=== PATIENT | male | born 1955 | race Caucasian/White ===

== ENCOUNTER 2017-08-24 10:36 | Emergency (ER) | payer OTHER ==
[~2017-08-24] VITALS: Ht 172.7 cm; Wt 90.0 kg
[2017-08-24] MEDS ORDERED: ASPIRIN CHEWABL81 MG PO (10:53)
[2017-08-24] MEDS ORDERED: ALLERGY NA50 MCG/ACT NAB (10:54)
[2017-08-24] MEDS ORDERED: PRILOSEC20 MG/CAP PO (10:55)
[2017-08-24] MEDS ORDERED: CLOPIDOGREL75 MG PO (10:55)
[2017-08-24] MEDS ORDERED: CLINDAMYCIN HC150 MG PO (10:56)
[2017-08-24] MEDS ORDERED: SENNA S1 TAB PO (10:57)
[2017-08-24] MEDS ORDERED: TAMSULOSIN HCL0.4 MG PO (10:58)
[2017-08-24] MEDS ORDERED: ASMANEX HF100 MCG/AC IN (11:01)
[2017-08-24] MEDS ORDERED: DULERA1 AE1 IN (11:03)
[2017-08-24] MEDS ORDERED: [UNRECOGNIZED DRUG - OTHER] IN (11:03)
[2017-08-24] MEDS ORDERED: MIRTAZAPINE15 M1 PO (11:04)
[2017-08-24] MEDS ORDERED: ATORVASTATIN CA80 MG PO (11:04)
[2017-08-24] MEDS ORDERED: ZOLOFT50 MG PO (11:05)
[2017-08-24 11:07] LABS: HEMATOCRIT 39.5 % (39.0-50.0); HEMOGLOBIN 12.9 g/dl (14.0-18.0); IMMATURE GRANULOCYTES 0.4 % (0.0-1.0); MEAN CELL VOLUME 86.6 fL CALC (80.0-100.0); MEAN CORPUSCULAR HGB 28.3 pG CALC (26.0-32.0); MEAN CORPUSCULAR HGB CONC 32.7 g/L CALC (32.0-36.0); NEUT# 4.47 thou/uL (1.82-7.42); RED BLOOD COUNT 4.56 mill/uL (4.70-6.10); RED CELL DISTRI WIDTH 16.1 % (11.5-15.5)
[2017-08-24 11:25] LABS: ANION GAP 15 (6-22 (CALC)); BUN 13 mg/dL (8-23); BUN/CREATININE RATIO 13 (12-20 (CALC)); CARBON DIOXIDE 25 mmol/l (22-30); CHLORIDE 107 mmol/l (95-108); GFR > 60 ML/MIN (>=60 (CALC)); GFR FOR AFR.AMER. > 60 ML/MIN (>=60 (CALC)); POTASSIUM 3.6 mmol/l (3.5-5.1); SODIUM 144 mmol/l (137-146)
[2017-08-24 12:41] LABS: URINE BILIRUBIN - DIPSTICK NEGATIVE (NEGATIVE); URINE BLOOD DIPSTICK NEGATIVE (NEGATIVE); URINE COLOR YELLOW; URINE GLUCOSE - DIPSTICK NEGATIVE (NEGATIVE); URINE KETONE NEGATIVE (NEGATIVE); URINE LEUK ESTERASE NEGATIVE (NEGATIVE); URINE PH 5.5 (4.5-8.0); URINE PROTEIN - DIPSTICK NEGATIVE (NEG-TRACE); URINE UROBILINOGEN - DIPSTICK 0.2 E.U./dL (0.2)
[2017-08-24 12:51] LABS: URINE CLARITY TURBID; URINE NITRITE - DIPSTICK POSITIVE (Negative)
[2017-08-24 13:23] LABS: URINE BACTERIA MANY hpf; URINE SQUAMOUS EPITHELIAL CELL FEW EPI/hpf (0-FEW)
[2017-08-24 15:25] VITALS: BP 167/87
--- NOTE | 2017-08-26 10:03 | NUR ---
Called and faxed urine culture results to [employer] front loader residential driver, at Dr. Albarado's office.
== END 2017-08-24 15:28 | disposition home or self-care (01) | DRG 690 ==
LOC: ED 10:36
PROVIDERS: Family Medicine
DX: N39.0 Urinary tract infection, site not specified (principal); I69.354 Hemiplegia and hemiparesis following cerebral infarction affecting left non-dominant side; I10 Essential (primary) hypertension; Z91.81 History of falling

== ENCOUNTER 2017-10-21 16:13 | Emergency (ER) | payer OTHER ==
[~2017-10-21] VITALS: Ht 172.7 cm; Wt 75.0 kg
[~2017-10-21 16:13] MED LIST: ALLERGY NA50 MCG/ACT NAB; ASMANEX HF100 MCG/AC IN; ASPIRIN CHEWABL81 MG PO; ATORVASTATIN CA80 MG PO; CLINDAMYCIN HC150 MG PO; CLOPIDOGREL75 MG PO; DULERA1 AE1 IN; MIRTAZAPINE15 M1 PO; PRILOSEC20 MG/CAP PO; SENNA S1 TAB PO; TAMSULOSIN HCL0.4 MG PO; ZOLOFT50 MG PO; [UNRECOGNIZED DRUG - OTHER] IN
[2017-10-21 16:52] LABS: HEMATOCRIT 42.6 % (39.0-50.0); HEMOGLOBIN 13.5 g/dl (14.0-18.0); IMMATURE GRANULOCYTES 0.4 % (0.0-1.0); MEAN CELL VOLUME 90.1 fL CALC (80.0-100.0); MEAN CORPUSCULAR HGB 28.5 pG CALC (26.0-32.0); MEAN CORPUSCULAR HGB CONC 31.7 g/L CALC (32.0-36.0); NEUT# 5.66 thou/uL (1.82-7.42); RED BLOOD COUNT 4.73 mill/uL (4.70-6.10); RED CELL DISTRI WIDTH 13.8 % (11.5-15.5)
[2017-10-21 17:02] LABS: ANION GAP 15 (6-22 (CALC)); BUN 13 mg/dL (8-23); BUN/CREATININE RATIO 14 (12-20 (CALC)); CARBON DIOXIDE 29 mmol/l (22-30); CHLORIDE 103 mmol/l (95-108); CREATININE 0.9 mg/dL (0.7-1.3); GFR > 60 ML/MIN (>=60 (CALC)); GFR FOR AFR.AMER. > 60 ML/MIN (>=60 (CALC)); POTASSIUM 4.2 mmol/l (3.5-5.1); SODIUM 143 mmol/l (137-146)
[2017-10-21] MEDS ORDERED: KLONOPIN0.5 MG PO (18:00)
[2017-10-21] MEDS ORDERED: MIRALAX3350 NF PO (18:02)
[2017-10-21] MEDS ORDERED: BREO ELLIPTA 101 INH IN (18:02)
[2017-10-21] MEDS ORDERED: COLACE100 MG PO (18:04)
[2017-10-21] MEDS ORDERED: TUDORZA PR400 MCG/AC IN (18:05)
[2017-10-21 19:12] VITALS: BP 141/78
== END 2017-10-21 19:12 | disposition short-term general hospital (02) | DRG 65 ==
LOC: ED 16:13
PROVIDERS: Family Medicine
DX: I63.9 Cerebral infarction, unspecified (principal); G81.94 Hemiplegia, unspecified affecting left nondominant side; I10 Essential (primary) hypertension; R41.82 Altered mental status, unspecified; R06.02 Shortness of breath

== ENCOUNTER 2017-11-29 08:22 | Observation (INO) | payer OTHER ==
[~2017-11-29] VITALS: Ht 172.7 cm; Wt 76.7 kg
[~2017-11-29 08:22] MED LIST changes: +BREO ELLIPTA 101 INH IN; +COLACE100 MG PO; +KLONOPIN0.5 MG PO; +MIRALAX3350 NF PO; +TUDORZA PR400 MCG/AC IN
[2017-11-29 08:54] LABS: HEMATOCRIT 43.3 % (39.0-50.0); HEMOGLOBIN 13.7 g/dl (14.0-18.0); IMMATURE GRANULOCYTES 0.4 % (0.0-1.0); MEAN CELL VOLUME 87.7 fL CALC (80.0-100.0); MEAN CORPUSCULAR HGB 27.7 pG CALC (26.0-32.0); MEAN CORPUSCULAR HGB CONC 31.6 g/L CALC (32.0-36.0); NEUT# 6.98 thou/uL (1.82-7.42); RED BLOOD COUNT 4.94 mill/uL (4.70-6.10); RED CELL DISTRI WIDTH 13.4 % (11.5-15.5)
[2017-11-29 09:07] LABS: ALBUMIN 4.2 g/dL (3.2-5.0); ALKALINE PHOSPHATASE 82 u/l (38-126); ANION GAP 13 (6-22 (CALC)); BILIRUBIN, TOTAL 0.5 mg/dL (0.0-1.4); BUN 11 mg/dL (8-23); BUN/CREATININE RATIO 15 (12-20 (CALC)); CARBON DIOXIDE 26 mmol/l (22-30); CHLORIDE 106 mmol/l (95-108); CREATININE 0.8 mg/dL (0.7-1.3); GFR > 60 ML/MIN (>=60 (CALC)); GFR FOR AFR.AMER. > 60 ML/MIN (>=60 (CALC)); LIPASE 45 u/l (23-300); POTASSIUM 4.4 mmol/l (3.5-5.1); SGOT/AST 26 u/l (19-48); SGPT/ALT 36 u/l (11-66); SODIUM 141 mmol/l (137-146); TOTAL PROTEIN 7.6 g/dL (6.3-8.2)
[2017-11-29] MEDS ORDERED: DULERA1 AE1 IN (10:01)
[2017-11-29] MEDS ORDERED: BACLOFEN10 MG PO (10:02)
[2017-11-29] MEDS ORDERED: PERCOCET 5/321 COMBO PO (10:02)
[2017-11-29 10:13] LABS: URINE BILIRUBIN - DIPSTICK NEGATIVE (NEGATIVE); URINE BLOOD DIPSTICK NEGATIVE (NEGATIVE); URINE COLOR YELLOW; URINE GLUCOSE - DIPSTICK NEGATIVE (NEGATIVE); URINE KETONE NEGATIVE (NEGATIVE); URINE LEUK ESTERASE NEGATIVE (NEGATIVE); URINE NITRITE - DIPSTICK NEGATIVE (Negative); URINE PROTEIN - DIPSTICK NEGATIVE (NEG-TRACE); URINE SPECIFIC GRAVITY <=1.005; URINE UROBILINOGEN - DIPSTICK 0.2 E.U./dL (0.2)
[2017-11-29 10:16] LABS: URINE CLARITY CLEAR
[2017-11-29 11:41] VITALS: BP 144/73
[2017-11-29 16:00] VITALS: BP 151/83
[2017-11-29 20:15] VITALS: BP 117/73
[2017-11-30 00:16] VITALS: BP 125/69
[2017-11-30 04:39] VITALS: BP 141/84
[2017-11-30 05:28] LABS: HEMATOCRIT 38.7 % (39.0-50.0); HEMOGLOBIN 12.4 g/dl (14.0-18.0); MEAN CELL VOLUME 87.4 fL CALC (80.0-100.0); RED BLOOD COUNT 4.43 mill/uL (4.70-6.10); RED CELL DISTRI WIDTH 13.4 % (11.5-15.5)
[2017-11-30 05:49] LABS: ANION GAP 12 (6-22 (CALC)); BUN 16 mg/dL (8-23); BUN/CREATININE RATIO 22 (12-20 (CALC)); CALCULATED LDLCHOLESTEROL 56 mg/dL (62-129 (CALC)); CARBON DIOXIDE 25 mmol/l (22-30); CHLORIDE 106 mmol/l (95-108); CHOLESTEROL HDL RATIO 2.2 (<4.4 (CALC)); CREATININE 0.8 mg/dL (0.7-1.3); GFR > 60 ML/MIN (>=60 (CALC)); GFR FOR AFR.AMER. > 60 ML/MIN (>=60 (CALC)); HDL CHOLESTEROL 55 mg/dL (>=40); POTASSIUM 4.6 mmol/l (3.5-5.1); SODIUM 138 mmol/l (137-146); TOTAL CHOLESTEROL 121 mg/dl (0-199); TOTAL TRIGLYCERIDES 50 mg/dl (30-149); VLDL CHOLESTROL 10 mg/dl (4-45 (CALC))
[2017-11-30 07:56] VITALS: BP 107/59
[2017-11-30 12:00] VITALS: BP 118/67
[2017-11-30] MEDS ORDERED: ROPINIROLE0.25 MG PO (14:32)
[2017-11-30] MEDS ORDERED: NAMENDA5 MG PO (14:32)
[2017-11-30] MEDS ORDERED: GUAIFENESIN LA600 MG PO (14:33)
[2017-11-30] MEDS ORDERED: AMANTADINE100 MG PO (14:33)
[2017-11-30 16:12] VITALS: BP 133/75
[2017-11-30 19:30] VITALS: BP 119/73
[2017-12-01 00:08] VITALS: BP 128/78
[2017-12-01 04:58] VITALS: BP 124/44
[2017-12-01 09:00] VITALS: BP 122/66
[2017-12-01 11:01] VITALS: BP 126/82
[2017-12-01 15:29] VITALS: BP 111/66
== END 2017-12-01 18:25 | disposition home health service (06) | DRG 313 ==
LOC: ED 08:22 → ED-I 08:51 → ED 09:41 → MS2 09:42
PROVIDERS: Family Medicine; ADMIT Internal Medicine; ATTEND Internal Medicine
PROC: 0T9B70Z Drainage of Bladder with Drainage Device, Via Natural or Artificial Opening (ICD-10-PCS; principal; 2017-11-29)
DX: R07.9 Chest pain, unspecified (principal); J96.10 Chronic respiratory failure, unspecified whether with hypoxia or hypercapnia; I10 Essential (primary) hypertension; I69.954 Hemiplegia and hemiparesis following unspecified cerebrovascular disease affecting left non-dominant side; N40.1 Benign prostatic hyperplasia with lower urinary tract symptoms; R33.8 Other retention of urine; I25.10 Atherosclerotic heart disease of native coronary artery without angina pectoris; F41.9 Anxiety disorder, unspecified; K21.9 Gastro-esophageal reflux disease without esophagitis; I65.29 Occlusion and stenosis of unspecified carotid artery; J44.9 Chronic obstructive pulmonary disease, unspecified; F32.9 Major depressive disorder, single episode, unspecified; I69.992 Facial weakness following unspecified cerebrovascular disease; R25.1 Tremor, unspecified; Z90.2 Acquired absence of lung [part of]; Z99.81 Dependence on supplemental oxygen; Z95.1 Presence of aortocoronary bypass graft; Z85.820 Personal history of malignant melanoma of skin; Z87.891 Personal history of nicotine dependence
CPT/HCPCS: G0378

== ENCOUNTER 2017-12-04 17:06 | Inpatient (IN) | payer OTHER ==
[~2017-12-04] VITALS: Ht 172.7 cm; Wt 90.0 kg
[~2017-12-04 17:06] MED LIST changes: +AMANTADINE100 MG PO; +BACLOFEN10 MG PO; +GUAIFENESIN LA600 MG PO; +NAMENDA5 MG PO; +PERCOCET 5/321 COMBO PO; +ROPINIROLE0.25 MG PO
--- NOTE | 2017-12-04 17:08 | NUR ---
TO TX ROOM VIA W/C. AT SIDE. PT LIVING AT THE [facility]. BROUGHT PT HERE PT IS SOB, WHEEZING, HAS BLOOD INN HUITRON BAG AND UNCONTROLLED DIARRHEA, SHE IS REQUESTING [facility] PLACEMENT
[2017-12-04 18:06] LABS: HEMATOCRIT 34.9 % (39.0-50.0); HEMOGLOBIN 11.2 g/dl (14.0-18.0); IMMATURE GRANULOCYTES 0.3 % (0.0-1.0); MEAN CELL VOLUME 86.2 fL CALC (80.0-100.0); MEAN CORPUSCULAR HGB 27.7 pG CALC (26.0-32.0); MEAN CORPUSCULAR HGB CONC 32.1 g/L CALC (32.0-36.0); NEUT# 7.93 thou/uL (1.82-7.42); RED BLOOD COUNT 4.05 mill/uL (4.70-6.10); RED CELL DISTRI WIDTH 13.6 % (11.5-15.5)
--- NOTE | 2017-12-04 18:11 | NUR ---
LEFT-GOING HOME.
[2017-12-04 18:14] LABS: ALBUMIN 3.8 g/dL (3.2-5.0); ALKALINE PHOSPHATASE 72 u/l (38-126); ANION GAP 15 (6-22 (CALC)); BILIRUBIN, TOTAL 0.5 mg/dL (0.0-1.4); BUN 15 mg/dL (8-23); BUN/CREATININE RATIO 15 (12-20 (CALC)); CARBON DIOXIDE 27 mmol/l (22-30); CHLORIDE 101 mmol/l (95-108); GFR > 60 ML/MIN (>=60 (CALC)); GFR FOR AFR.AMER. > 60 ML/MIN (>=60 (CALC)); LIPASE 29 u/l (23-300); SGOT/AST 27 u/l (19-48); SGPT/ALT 30 u/l (11-66); SODIUM 138 mmol/l (137-146); TOTAL PROTEIN 7.1 g/dL (6.3-8.2)
--- NOTE | 2017-12-04 19:03 | NUR ---
PT HAS HAD HUITRON CATHETER REPLACED, 18F, FOR THE PURPOSE OF GETTING A GOOD SPECIMEN. PT HAS BEEN GIVEN MEDS FOR HIS LEFT LEG INVOLUNTARY MOVEMENTS. DR HAZEL STOPPED BY, TOLD PT HE WOULD BE ADMITTED.
[2017-12-04 20:01] LABS: URINE BILIRUBIN - DIPSTICK NEGATIVE (NEGATIVE); URINE BLOOD DIPSTICK LARGE (NEGATIVE); URINE COLOR YELLOW; URINE GLUCOSE - DIPSTICK NEGATIVE (NEGATIVE); URINE KETONE NEGATIVE (NEGATIVE); URINE LEUK ESTERASE NEGATIVE (NEGATIVE); URINE NITRITE - DIPSTICK NEGATIVE (Negative); URINE PROTEIN - DIPSTICK NEGATIVE (NEG-TRACE); URINE SPECIFIC GRAVITY <=1.005; URINE UROBILINOGEN - DIPSTICK 0.2 E.U./dL (0.2)
[2017-12-04 20:05] LABS: URINE CLARITY CLEAR
[2017-12-04 20:11] LABS: URINE WBC 0-2 WBC/hpf (0-5)
--- NOTE | 2017-12-04 20:11 | NUR ---
PT UPDATED ON RESULTS THEY HAVE COME DUE. PT HAS HAD OCCASIONAL UNCONTROLLED SHAKING TO LEFT LEG, LASTS ABOUT ONE MINUTE.
[2017-12-04 21:10] VITALS: BP 135/79
--- NOTE | 2017-12-04 21:10 | NUR ---
PT ARRIVED TO UNIT VIA STRETCHER WITH ER STAFF; ALERT AND ORIENTED. TRANSFERED TO BED WITH 3 PERSON MAX ASSIST; LEFT SIDED HEMIPLEGIA R/T HX CVA. C/O MILD PAIN TO LLE; BLE WITH UNCONTROLLED TREMOR. RESPIRATIONS EVEN AND UNLABORED ON 2L OF OXYGEN VIA NC. ORIENTED TO ROOM AND CALL LIGHT SYSTEM. PLAN OF CARE DISCUSSED. PT ENCOURAGED TO VERBALIZE CONCERNS. STATES UNDERSTANDING. SAFETY MEASURES IN PLACE. CALL LIGHT WITHIN REACH.
--- NOTE | 2017-12-04 21:17 | NUR ---
REPORT CALLED TO [place]. PT TAKEN TO ROOM 261 WITHOUT INCIDENT.
--- NOTE | 2017-12-05 | NUR ---
PT ASLEEP AT THIS TIME WITH NO SIGNS OF DISTRESS. RESPIRATIONS EVEN AND UNLABORED ON OXYGEN. IV SITE APPEARS HEALTHY AND FLUSHES. HUITRON CATHETER DRAINING CLEAR YELLOW URINE IN ADEQUATE AMOUNTS. SAFETY MEASURES IN PLACE. CALL LIGHT WITHIN REACH.
--- NOTE | 2017-12-05 04:14 | NUR ---
PT ASLEEP AT THIS TIME WITH NO SIGNS OF DISTRESS. RESPIRATIONS EVEN AND UNLABORED ON OXYGEN. NO ACUTE CHANGES IN CONDITION THROUGHOUT THE NIGHT. SAFETY MEASURES IN PLACE. CALL LIGHT WITHIN REACH.
[2017-12-05 04:40] VITALS: BP 124/81
[2017-12-05 08:57] VITALS: BP 110/69
--- NOTE | 2017-12-05 08:57 | NUR ---
PT RESTING IN BED, NO SIGNS OF DISTRESS NOTED. HUITRON DRAINING TO GRAVITY, LEG STRAP IN PLACE. RESP EVEN AND UNLABORED. 02 2L NC DISCUSSED POC, PT IN AGREEMENT. ASSESSMENT COMPLETED AT THIS TIME. CALL LIGHT IN REACH,CONTINUE TO MONITOR.
--- NOTE | 2017-12-05 13:41 | NUR ---
PT RESTING IN BED, NO SIGNS OF DISTRESS NOTED, RESP EVEN AND UNLABORED.PT ALERT AND ORIENTED X3, CALL LIGHT IN REACH,CONTINUE TO MONITOR.
[2017-12-05 16:35] VITALS: BP 132/66
--- NOTE | 2017-12-05 18:22 | NUR ---
PT RESTING IN BED, NEW IV STARTED, ANTIBIOTIC INITIATED. PT VOICES NO NEEDS OR COMPLAINTS AT THIS TIME. CALL LIGHT IN REACH,CONTINUE TO MONITOR.
[2017-12-05 18:50] LABS: C. DIFFICILE TOXIN A&B POSITIVE (NEGATIVE)
--- NOTE | 2017-12-05 18:52 | NUR ---
PT PLACED ON CONTACT PLUS DUE TO CDIFF RESULT CALLED IN.
[2017-12-05 19:30] VITALS: BP 109/62
--- NOTE | 2017-12-05 20:00 | NUR ---
PATIENT RESTING IN BED-AWAKE ALERT AND ORIENTEDX3. NO COMPLAINTS AT THIS TIME. PATIENT PLACED ON CONTACT PLUS ISOLATION FOR NEW C-DIFF+ RESULTS. PATIENT ADVISED OF NEW STATUS. PATIENT WITH SEVERE TREMORS NOTED TO UPPER AND LOWER EXTREMITIES. LEFT SIDED WEAKNESS NOTED WITH LEFT HAND CONTRACTURE ALSO NOTED. ATTEMPTED TO PLACE IN BRACE BUT PATIENT WAS NOT ABLE TO TOLERATE AT THIS TIME. IV SITE TO RIGHT AC-SITE APPEARS HEALTHY WITH GOOD BLOOD RETURN. HUITRON CATH IN PLACE AND DRAINING CLEAR YELLOW URINE AT THIS TIME. PATIENT WAS INCONT OF SMALL AMT OF LIQUID BROWN STOOL. CONTACT PLUS PRECAUTIONS MAINTAINED AND PERICARE WITH SOAP AND WATER DONE. BARRIER CREAM APPLIED TO AFFECTED AREA. SAFETY PRECAUTIONS REINFORCED. CALL LIGHT IN REACH. WILL CONT TO MONITOR.
--- NOTE | 2017-12-06 01:00 | NUR ---
APPEARS SLEEPING AT THIS TIME WITH EYES CLOSED AND HOB ELEVATED. HUITRON CATH PATENT AND DRAINING CLEAR YELLOW URINE. CALL LIGHT IN REACH. WILL CONT TO MONITOR.
--- NOTE | 2017-12-06 04:00 | NUR ---
PATIENT RESTING IN BED WITH HOB ELEVATED AND O2 VIA NASAL CANNULA IN PLACE AT 2LPM AND EYES CLOSED. IV SITE TO RIGHT AC INTACT. HUITRON PATENT AND DRAINING YELLOW URINE. CONTACT PLUS ISOLATION MAINTAINED. CALL LIGHT IN REACH. WILL CONT TO MONITOR.
[2017-12-06 04:10] VITALS: BP 119/67
[2017-12-06 05:09] LABS: ANION GAP 11 (6-22 (CALC)); BUN 21 mg/dL (8-23); BUN/CREATININE RATIO 26 (12-20 (CALC)); CARBON DIOXIDE 26 mmol/l (22-30); CHLORIDE 109 mmol/l (95-108); CREATININE 0.8 mg/dL (0.7-1.3); GFR > 60 ML/MIN (>=60 (CALC)); GFR FOR AFR.AMER. > 60 ML/MIN (>=60 (CALC)); POTASSIUM 4.4 mmol/l (3.5-5.1); SODIUM 143 mmol/l (137-146)
[2017-12-06 05:10] LABS: HEMATOCRIT 35.2 % (39.0-50.0); HEMOGLOBIN 11.4 g/dl (14.0-18.0); IMMATURE GRANULOCYTES 0.6 % (0.0-1.0); MEAN CELL VOLUME 86.5 fL CALC (80.0-100.0); MEAN CORPUSCULAR HGB CONC 32.4 g/L CALC (32.0-36.0); NEUT# 10.22 thou/uL (1.82-7.42); RED BLOOD COUNT 4.07 mill/uL (4.70-6.10); RED CELL DISTRI WIDTH 13.6 % (11.5-15.5)
[2017-12-06 09:48] VITALS: BP 128/72
--- NOTE | 2017-12-06 09:48 | NUR ---
PT RESTING IN BED IN BED, NO SIGNS OF DISTRESS NOTED, RESP EVEN AND UNLABORED. PT ALERT AND ORIENTED X3.02 2L NC, HUITRON DRAINING TO GRAVITY. L SIDED HEMIPARESIS, PT ON CONTACT PLUS FOR CDIFF, EDUCATED ON PROPER HAND WASHING AND PPE. PT VERABALIZED UNDERSTANDING.ASSESSMENT COMPLETED. CALL LIGHT IN REACH,CONTINUE TO MONITOR.
--- NOTE | 2017-12-06 11:45 | NUR ---
PT GIVEN HOSPITAL WHEELCHAIR TO MOVE AROUND IN ROOM. CALL LIGHT IN REACH,CONTINUE TO MONITOR.
[2017-12-06 16:20] VITALS: BP 152/88
[2017-12-06 19:30] VITALS: BP 132/78
--- NOTE | 2017-12-06 20:45 | NUR ---
PATIENT RESTING IN BED WITH HOB ELEVATED AND O2 VIA NASAL CANNULA IN PLACE AT 2LPM. AWAKE ALERT AND ORIENTEDX3. HUITRON CATH PATENT AND DRAINING CLEAR YELLOW URINE. IV SITE TO RIGHT AC INTACT-APPEARS H EALTHY AT THIS TIME WITH GOOD BLOOD RETURN. PATIENT S/P CVA WITH LEFT HEMIPARESIS. REFUSING TO USE BRACE TO LEFT HAND AT THIS TIME. PATIENT MAX ASSIST TO WHEELCHAIR TO BR TO TOILET. MODERATE AMT OF LOOSE BROWN STOOL WITH SOME BRIGHT RED BLOOD NOTED. PATIENT ASSISTED WITH PERSONAL CARE INCLUDING HUITRON CATH CARE WITH SOAP AND WATER. BARRIER CREAM APPLIED TO PERIANAL AND BUTTOCK FOR PROTECTION. LINENS WERE CHANGED AND PATIENT MAX ASSIST BACK TO BED. CONTACT PLUS PRECAUTIONS MAINTAINED. HS MED WERE GIVEN ORDERED. SAFETY PRECAUTIONS REINFORCED. CALL LIGHT IN REACH. WILL CONT TO MONITOR.
--- NOTE | 2017-12-06 23:43 | NUR ---
PATIENT RESTING WITH EYES CLOSED AND HOB ELEVATED. O2 VIA NASAL CANNULA IN PLACE AT 2LPM. HUITRON CATH PATENT AND DRAINING CLEAR YELLOW URINE. CALL LIGHT IN REACH. WILL CONT TO MONITOR.
[2017-12-07 04:00] VITALS: BP 165/90
--- NOTE | 2017-12-07 04:41 | NUR ---
PATIENT APPEARS SLEEPING WITH EYES CLOSED AND HOB ELEVATED. O2 VIA NASAL CANNULA IN PLACE. HUITRON PATENT AND DRAINING CLEAR YELLOW URINE. CALL LIGHT IN REACH. WILL CONT TO MONITOR.
--- NOTE | 2017-12-07 08:08 | NUR ---
PT TAKEN DOWN TO CT PER ERCOLONI ORDERS, PT STABLE. CONTINUE TO MONITOR.
--- NOTE | 2017-12-07 09:45 | NUR ---
PT SITTING IN RECLINER AT BEDSIDE, NO SIGNS OF DISTRESS NOTED. RESP EVEN AND UNLABORED. PT ALERT AND ORIENTEDx3. DISCUSSED POC. HUITRON DRAINING TO GRAVITY; BRITTANY URINE DRAINING, ENCOURAGED PO FLUIDS. PT HAS HEMIPARESIS TO L SIDE, ASSESSMENT COMPLETED AT THIS TIME. CALL LIGHT IN REACH,CONTINUE TO MONITOR.
[2017-12-07 09:46] VITALS: BP 112/66
--- NOTE | 2017-12-07 11:42 | NUR ---
PT SITTING IN RECLINER EATING LUNCH. NO SIGNS OF DISTRESS NOTED, RESP EVEN AND UNLABORED. PT VOICES NO NEEDS OR COMPLAINTS AT THIS TIME. CALL LIGHT IN REACH,CONTINUE TO MONITOR.
--- NOTE | 2017-12-07 15:27 | NUR ---
PT SITTING IN RECLINER NO SIGNS OF DISTRESS NOTED. RESP EVEN AND UNLABORED. CALL LIGHT IN REACH,CONTINUE TO MONITOR.
[2017-12-07 16:00] VITALS: BP 138/78
--- NOTE | 2017-12-07 19:09 | NUR ---
PATIENT RESTING IN BED WITH HOB ELEVATED AND O2 VIA NASAL CANNULA IN PLACE. AWAKE ALERT AND ORIENTEDX3. NO COMPLAINTS AT THIS TIME-STATES THAT HIS STOOLS TODAY ARE BECOMING MORE FORMED. HUITRON CATH PATENT AND DRAINING CLEAR YELLOW URINE. HEP LOCK TO RIGHT AC INTACT. SAFETY PRECAUTIONS REINFORCED. CALL LIGHT IN REACH. WILL CONT TO MONITOR.
[2017-12-07 19:30] VITALS: BP 138/83
--- NOTE | 2017-12-07 23:43 | NUR ---
PATIENT APPEARS SLEEPING WITH EYES CLOSED. HOB ELEVATED AND O2 VIA NAXAL CANNULA IN PLACE. HUITRON CATH PATENT AND DRAINING YELLOW URINE. CALL LIGHT IN REACH. WILL CONT TO MONITOR. CONTACT PLUS ISOLATION MAINTAIN FOR C-DIFF.
--- NOTE | 2017-12-08 03:50 | NUR ---
PATIENT CONT TO APPEAR SLEEPING WITH EYES CLOSED AND O2 VIA NASAL CANNULA IN PLACE AT 2LPM. RESP ARE EVEN AND UNLABORED. HUITRON IS PATENT AND DRAINING YELLOW URINE. CALL LIGHT IN REACH.WILL CONT TO MONITOR.
[2017-12-08 04:00] VITALS: BP 155/78
[2017-12-08 04:41] LABS: HEMATOCRIT 37.7 % (39.0-50.0); HEMOGLOBIN 12.1 g/dl (14.0-18.0); MEAN CELL VOLUME 87.1 fL CALC (80.0-100.0); MEAN CORPUSCULAR HGB 27.9 pG CALC (26.0-32.0); MEAN CORPUSCULAR HGB CONC 32.1 g/L CALC (32.0-36.0); NEUT# 8.51 thou/uL (1.82-7.42); RED BLOOD COUNT 4.33 mill/uL (4.70-6.10); RED CELL DISTRI WIDTH 13.7 % (11.5-15.5)
[2017-12-08 04:57] LABS: ANION GAP 11 (6-22 (CALC)); BUN 18 mg/dL (8-23); BUN/CREATININE RATIO 24 (12-20 (CALC)); CARBON DIOXIDE 27 mmol/l (22-30); CHLORIDE 106 mmol/l (95-108); CREATININE 0.7 mg/dL (0.7-1.3); GFR > 60 ML/MIN (>=60 (CALC)); GFR FOR AFR.AMER. > 60 ML/MIN (>=60 (CALC)); POTASSIUM 4.7 mmol/l (3.5-5.1); SODIUM 139 mmol/l (137-146)
--- NOTE | 2017-12-08 07:00 | NUR ---
REPORT RECEIVED FROM SHANON ROSA;PT APPEARS TO BE SLEEPING IN SEMI FOWLERS POSITION;RESPIRATIONS APPEAR EVEN AND UNLABORED ON 02 @ 2L VIA NC;NO S/S OF DISTRESS NOTED;FALL PRECAUTIONS IN PLACE WITH BED IN THE LOWEST POSITION;CONTACT PRECAUTIONS IN PLACE FOR C-DIFF;CALL LIGHT IN REACH;WILL CONTINUE TO MONITOR
--- NOTE | 2017-12-08 08:05 | NUR ---
PT RESTING IN SEMI FOWLERS POSITION;VS OBTAINED AND ASSESSMENT COMPLETED;PT DENIES ANY PAIN OR DISCOMFORTS STATING "I HAD A GOOD NIGHT";ASSESSMENT COMPLETED;RESPIRATIONS EVEN AND UNLABORED ON 02 @ 2L VIA NC,DIMINISHED/CLEAR LUNG SOUNDS NOTED;ABDOMEN SOFT ON PALPATION AND ACTIVE IN ALL 4 QUADRANTS;WEAK PEDAL PULSES;LEFT SIDE WEAKNESS NOTED FROM PRIOR CVA;HUITRON CATHETER PATENT DRAINING CLEAR/YELLOW URINE,LEG STRAP IN PLACE;#20G TO RAC FLUSHED AND PATENT,SITE APPEARS HEALTHY;PT DENIES ANY CURRENT NEEDS AND IS INSTRUCTED TO CALL FOR ASSISTANCE IF NEEDED;FALL PRECAUTIONS IN PLACE WITH BED IN THE LOWEST POSITION AND CALL LIGHT IN REACH;WILL CONTINUE TO MONITOR
[2017-12-08 08:07] VITALS: BP 124/72
--- NOTE | 2017-12-08 09:00 | NUR ---
PT AMBULATED TO WHEELCHAIR AND TRANSFERRED TO RESTROOM WITH 2 PERSON ASSIST;MODERATE BROWN/FORMED BM NOTED;FULL SHOWER PROVIDED AND NEW LINENS PROVIDED;PT RE-POSITIONED INTO RECLINER AND TOLERATED WELL;PT ENCOURAGED TO CALL FOR ASSISTANCE IF NEEDED;FALL PRECAUTIONS REMAIN IN PLACE WITH CALL LIGHT IN REACH;WILL CONTINUE TO MONITOR
--- NOTE | 2017-12-08 11:40 | NUR ---
PT OOB RESTING IN WHEELCHAIR WITH VISITOR AT BEDSIDE;PT DENIES ANY PAIN OR NEEDS;RESPIRATIONS EVEN AND UNLABORED ON 02 @ 2L VIA NC;HUITRON CATHETER PATENT DRAINING CLEAR/YELLOW URINE;PT DENIES ANY CURRENT NEEDS;ENCOURAGED TO CALL FOR ASSISTANCE IF NEEDED;FALL AND CONTACT PRECAUTIONS IN PLACE WITH CALL LIGHT IN REACH;WILL CONTINUE TO MONITOR
[2017-12-08 15:19] VITALS: BP 120/70
--- NOTE | 2017-12-08 15:30 | NUR ---
Pt. was found sitting in wheelchair, treatment plan explained and pt. in agreement to participate in gait training this PM. Gait belt and L AFO applied prior to doing so. Sit to stand done with min. assist x1, pt. used R UE for push off from chair and requires pre positioning of the L LE prior to sit to stand. In standing verbal cues given to shift weight forward and to stand tall. Pt. ambulated 2 x 10 feet with min. assist x1 using cathy walker on R and O2 at 2L via NC. Short steps were observed with slighly flexed L knee. Pt. able to reach back with R UE and slowly lower onto wheel chair with min. assist x1. O2 sats maintained 96% - 99% during treatment. Pt. content with progress made and was left sitting comfortably in wheel chair without questions or concerns. Call light reviewed and left within reach, bedside table also left within reach.
--- NOTE | 2017-12-08 15:30 | NUR ---
PT OOB RESTING IN WHEELCHAIR WATCHING TV;CONTACT PLUS REMAINS IN PLACE FOR MRSA;PT DENIES ANY CURRENT PAIN OR NEEDS;RESPIRATIONS APPEAR EVEN AND UNLABORED ON 02 @ 2L VIA NC;HUITRON CATHETER PATENT DRAINING TO GRAVITY;PT ENCOURAGED PT CALL FOR ASSISTANCE IF NEEDED;CALL LIGHT IN REACH;WILL CONTINUE TO MONITOR
--- NOTE | 2017-12-08 19:14 | NUR ---
BEDSIDE REPORT RECEIVED FROM PIOTR MERLOS. PT SITTING UP IN BED EATING DINNER; ALERT AND ORIENTED. DENIES PAIN CURRENTLY. RESPIRATIONS EVEN AND UNLABORED ON OXYGEN. CONTACT PLUS PRECAUTIONS. ELANA TO BSDB PATENT. PLAN OF CARE REVIEWED. PT ENCOURAGED TO VERBALIZE CONCERNS. STATES UNDERSTANDING. SAFETY MEASURES IN PLACE. CALL LIGHT WITHIN REACH.
[2017-12-08 19:55] VITALS: BP 149/87
--- NOTE | 2017-12-09 | NUR ---
PT ASLEEP AT THIS TIME WITH NO SIGNS OF DISTRESS; RESPIATIONS EVEN AND UNLABORED ON OXYGEN. AWAKENED TO VERBAL STIMULI FOR PO VANCO. PT DENIES PAIN. NO REQUESTS OR CONCERNS AT THIS TIME. HUITRON DRAINING CLEAR YELLOW URINE IN ADEQUATE AMOUNTS. IV SITE APPEARS HEALTHY AND FLUSHES. NO BOWEL MOVEMENTS SINCE START OF SHIFT. SAFETY MEASURES IN PLACE. CALL LIGHT WITHIN REACH.
--- NOTE | 2017-12-09 03:52 | NUR ---
NO CHANGES IN CONDITION THROUGHOUT THE NIGHT. PT ABLE TO REPOSITION SELF IN BED AND CONTINUES TO WEAR BRACE TO LEFT HAND R/T CONTRACTURE. PT USES CALL LIGHT PRN FOR ASSISTNACE. SAFETY MEASURES IN PLACE. CALL LIGHT WITHIN REACH.
[2017-12-09 04:40] VITALS: BP 138/79
[2017-12-09 08:45] VITALS: BP 98/56
--- NOTE | 2017-12-09 08:45 | NUR ---
PT IS SITTING UP IN THE CHAIR. WITH NO DISTRESS NOTED . PHYSICAL THERAPY IN TO VISIT WITH PT. IV SITE IS FREE FROM REDNESS OR EDEMA. HR IS REG, PULSES ARE MODERATE X4. ABD IS SOFT WITH ACTIVE BS. CONTINUE TO OSBERVE AND MONITOR . PT WAS ABLE TO GET IN THE SHOWER AND USE BSC.
[2017-12-09] MEDS ORDERED: LYPHOCIN1 GM PO (11:09)
[2017-12-09] MEDS ORDERED: PREDNISONE10 MG PO (11:09)
[2017-12-09] MEDS ORDERED: PERCOCET 5/321 COMBO PO (11:09)
[2017-12-09] MEDS ORDERED: KLONOPIN0.5 MG PO (11:09)
[2017-12-09] MEDS ORDERED: FLORASTOR250 M1 PO (11:12)
--- NOTE | 2017-12-09 12:15 | NUR ---
PT IS RELAXING IN THE CHAIR. NO DISTRESS NOTED. IV SITE IS FREE FROM REDNESS OR EDEMA. CONTINUE TO OBSERVE AND MONITOR.
--- NOTE | 2017-12-09 14:36 | NUR ---
Pt. seen this PM for gait training and therapeutic exercises. Gait belt and L AFO on prior to treatment. Sit to stand with min. assist to cathy walker with verbal cues to maintain center of gravity. Pt. ambulated 2 x 16 feet using cathy walker with portable O2 at 2L and min. assist x1. Verbal cues and demonstrations provided for how to use cathy walker in sequence with L LE. Stand to sit done twice with light CGA x1, pt. able to use R UE to lower safely onto wheel chair. Therapeutic exercises consisted of PROM to L UE and L LE. Pt. left resting comfortably in wheel chair with call light and bedside table within reach. O2 in place via NC, pt. without questions or concerns after treatment.
[2017-12-09 15:00] VITALS: BP 113/66
--- NOTE | 2017-12-09 15:18 | NUR ---
WHILE GIVING PT'S MEDICATION. NOTICED ON THE HUITRON IN THE TUBING SOME PINK URINE. INQUIRED WITH THE PT WHAT IS HAPPENING." PT STATES: WHEN I HAVE A BM I STRAIN AND THEN IT DOES THAT" EXPLAINED IT WAS NOT GOOD TO STRAIN. VERBALIZED UNDERSTANDING.
--- NOTE | 2017-12-09 17:03 | NUR ---
PT IS WAITING FOR DISCHARGE. IV SITE IS DISCONTINUED CATHETER INTACT, NO REDNESS OR EDEMA.
--- NOTE | 2017-12-09 17:49 | NUR ---
EDD CLAUDIO AT [facility], RECIEVED REPORT. CONTINUE TO OSBERVE AND MONITOR.
--- NOTE | 2017-12-09 17:52 | NUR ---
RECEIVED ALL PAPER WORK FOR DISCHARGE. Discharge instructions given. Patient verbalizes understanding of same. Discharged in stable condition via Wheelchair to *Other with family. All belongings sent with pt.
== END 2017-12-09 17:40 | DRG 372 ==
LOC: ED 17:06 → ED-I 20:00 → ED 20:28 → MS2 20:29
PROVIDERS: Family Medicine; Nurse Practitioner; ADMIT Internal Medicine; ATTEND Internal Medicine
DX: A04.72 Enterocolitis due to Clostridium difficile, not specified as recurrent (principal); J44.1 Chronic obstructive pulmonary disease with (acute) exacerbation; I69.954 Hemiplegia and hemiparesis following unspecified cerebrovascular disease affecting left non-dominant side; J96.10 Chronic respiratory failure, unspecified whether with hypoxia or hypercapnia; E78.5 Hyperlipidemia, unspecified; I10 Essential (primary) hypertension; N40.1 Benign prostatic hyperplasia with lower urinary tract symptoms; R33.8 Other retention of urine; I25.10 Atherosclerotic heart disease of native coronary artery without angina pectoris; I69.922 Dysarthria following unspecified cerebrovascular disease; I65.29 Occlusion and stenosis of unspecified carotid artery; F41.9 Anxiety disorder, unspecified; G89.4 Chronic pain syndrome; R25.1 Tremor, unspecified; F14.11 Cocaine abuse, in remission; G62.9 Polyneuropathy, unspecified; Z95.1 Presence of aortocoronary bypass graft; Z90.2 Acquired absence of lung [part of]; Z99.81 Dependence on supplemental oxygen; Z87.891 Personal history of nicotine dependence; Z85.820 Personal history of malignant melanoma of skin
CPT/HCPCS: A9579; J1650; Q9967

== ENCOUNTER 2018-01-21 12:52 | Emergency (ER) | payer OTHER ==
[~2018-01-21] VITALS: Ht 172.7 cm; Wt 70.4 kg
[~2018-01-21 12:52] MED LIST changes: +FLORASTOR250 M1 PO; +LYPHOCIN1 GM PO; +PREDNISONE10 MG PO
[2018-01-21 13:31] LABS: HEMATOCRIT 41.1 % (39.0-50.0); HEMOGLOBIN 12.8 g/dl (14.0-18.0); IMMATURE GRANULOCYTES 0.5 % (0.0-5.0); MEAN CELL VOLUME 83.7 fL CALC (80.0-100.0); MEAN CORPUSCULAR HGB 26.1 pG CALC (26.0-32.0); MEAN CORPUSCULAR HGB CONC 31.1 g/L CALC (32.0-36.0); NEUT# 7.51 thou/uL (1.82-7.42); RED BLOOD COUNT 4.91 mill/uL (4.70-6.10)
[2018-01-21 13:47] LABS: ALBUMIN 4.1 g/dL (3.2-5.0); ALKALINE PHOSPHATASE 81 u/l (38-126); ANION GAP 15 (6-22 (CALC)); BILIRUBIN, TOTAL 0.7 mg/dL (0.0-1.4); BUN 14 mg/dL (8-23); BUN/CREATININE RATIO 17 (12-20 (CALC)); CARBON DIOXIDE 27 mmol/l (22-30); CHLORIDE 103 mmol/l (95-108); CREATININE 0.9 mg/dL (0.7-1.3); GFR > 60 ML/MIN (>=60 (CALC)); GFR FOR AFR.AMER. > 60 ML/MIN (>=60 (CALC)); POTASSIUM 4.2 mmol/l (3.5-5.1); SGOT/AST 21 u/l (19-48); SGPT/ALT 22 u/l (11-66); SODIUM 141 mmol/l (137-146); TOTAL PROTEIN 7.2 g/dL (6.3-8.2)
[2018-01-21 13:59] LABS: MYOGLOBIN 64 ng/mL (0 - 121)
[2018-01-21] MEDS ORDERED: ZOFRAN ODT4 MG PO (14:23)
[2018-01-21] MEDS ORDERED: ANTIVERT PO (14:23)
[2018-01-21] MEDS ORDERED: LORATADINE10 M1 PO (14:35)
[2018-01-21 14:45] VITALS: BP 109/69
== END 2018-01-21 14:59 | disposition home or self-care (01) | DRG 149 ==
LOC: ED 12:52
PROVIDERS: Emergency Medicine
DX: H81.10 Benign paroxysmal vertigo, unspecified ear (principal); I10 Essential (primary) hypertension; I25.10 Atherosclerotic heart disease of native coronary artery without angina pectoris; K21.9 Gastro-esophageal reflux disease without esophagitis; F41.9 Anxiety disorder, unspecified; I69.398 Other sequelae of cerebral infarction; M62.422 Contracture of muscle, left upper arm

== ENCOUNTER 2018-03-03 23:28 | Emergency (ER) | payer MEDICARE ==
[~2018-03-03] VITALS: Ht 172.7 cm; Wt 72.7 kg
[~2018-03-03 23:28] MED LIST changes: +ANTIVERT PO; +LORATADINE10 M1 PO; +ZOFRAN ODT4 MG PO
[2018-03-04] MEDS ORDERED: BREO ELLIPTA 101 INH IN (00:29)
[2018-03-04] MEDS ORDERED: OXYCODONE HCL5 MG PO (00:31)
[2018-03-04] MEDS ORDERED: ALBUTEROL SUL0.083 % IN (00:32)
[2018-03-04 00:53] LABS: HEMOGLOBIN 10.9 g/dl (14.0-18.0); IMMATURE GRANULOCYTES 0.3 % (0.0-5.0); MEAN CELL VOLUME 81.7 fL CALC (80.0-100.0); MEAN CORPUSCULAR HGB 25.5 pG CALC (26.0-32.0); MEAN CORPUSCULAR HGB CONC 31.2 g/L CALC (32.0-36.0); NEUT# 4.47 thou/uL (1.82-7.42); RED BLOOD COUNT 4.27 mill/uL (4.70-6.10); RED CELL DISTRI WIDTH 15.7 % (11.5-15.5)
[2018-03-04 00:54] LABS: HEMATOCRIT 34.9 % (39.0-50.0)
[2018-03-04 01:03] LABS: ALBUMIN 3.6 g/dL (3.2-5.0); ALKALINE PHOSPHATASE 62 u/l (38-126); BILIRUBIN, TOTAL 0.3 mg/dL (0.0-1.4); BUN 12 mg/dL (8-23); BUN/CREATININE RATIO 11 (12-20 (CALC)); CARBON DIOXIDE 26 mmol/l (22-30); CREATININE 1.1 mg/dL (0.7-1.3); GFR > 60 ML/MIN (>=60 (CALC)); GFR FOR AFR.AMER. > 60 ML/MIN (>=60 (CALC)); POTASSIUM 4.4 mmol/l (3.5-5.1); SGOT/AST 27 u/l (19-48); SODIUM 142 mmol/l (137-146); TOTAL PROTEIN 6.5 g/dL (6.3-8.2)
[2018-03-04 01:04] LABS: ANION GAP 12 (6-22 (CALC)); CHLORIDE 108 mmol/l (95-108)
[2018-03-04 01:15] LABS: MYOGLOBIN 240 ng/mL (0 - 121)
[2018-03-04 02:51] VITALS: BP 138/74
== END 2018-03-04 03:35 | disposition home or self-care (01) ==
LOC: ED 23:28
PROVIDERS: Emergency Medicine
DX: M62.838 Other muscle spasm (principal); M79.18 Myalgia, other site; I69.354 Hemiplegia and hemiparesis following cerebral infarction affecting left non-dominant side; I10 Essential (primary) hypertension; F41.9 Anxiety disorder, unspecified
CPT/HCPCS: J3360

== ENCOUNTER 2018-05-02 11:45 | Emergency (ER) | payer MEDICARE ==
[~2018-05-02] VITALS: Ht 172.7 cm; Wt 76.0 kg
[~2018-05-02 11:45] MED LIST changes: +ALBUTEROL SUL0.083 % IN; +OXYCODONE HCL5 MG PO
[2018-05-02 12:24] LABS: URINE BILIRUBIN - DIPSTICK NEGATIVE (NEGATIVE); URINE BLOOD DIPSTICK NEGATIVE (NEGATIVE); URINE COLOR YELLOW; URINE GLUCOSE - DIPSTICK NEGATIVE (NEGATIVE); URINE KETONE NEGATIVE (NEGATIVE); URINE LEUK ESTERASE NEGATIVE (NEGATIVE); URINE NITRITE - DIPSTICK NEGATIVE (Negative); URINE PH 5.5 (4.5-8.0); URINE PROTEIN - DIPSTICK NEGATIVE (NEG-TRACE); URINE UROBILINOGEN - DIPSTICK 0.2 E.U./dL (0.2)
[2018-05-02 12:47] LABS: HEMATOCRIT 38.5 % (39.0-50.0); HEMOGLOBIN 11.9 g/dl (14.0-18.0); IMMATURE GRANULOCYTES 0.2 % (0.0-5.0); MEAN CELL VOLUME 80.2 fL CALC (80.0-100.0); MEAN CORPUSCULAR HGB 24.8 pG CALC (26.0-32.0); MEAN CORPUSCULAR HGB CONC 30.9 g/L CALC (32.0-36.0); NEUT# 3.63 thou/uL (1.82-7.42); RED BLOOD COUNT 4.8 mill/uL (4.70-6.10); RED CELL DISTRI WIDTH 17.2 % (11.5-15.5)
[2018-05-02 13:11] LABS: ALBUMIN 3.6 g/dL (3.2-5.0); ALKALINE PHOSPHATASE 54 u/l (38-126); ANION GAP 10 (6-22 (CALC)); BILIRUBIN, TOTAL 0.3 mg/dL (0.0-1.4); BUN 15 mg/dL (8-23); BUN/CREATININE RATIO 14 (12-20 (CALC)); CARBON DIOXIDE 28 mmol/l (22-30); CHLORIDE 107 mmol/l (95-108); CREATININE 1.1 mg/dL (0.7-1.3); GFR > 60 ML/MIN (>=60 (CALC)); GFR FOR AFR.AMER. > 60 ML/MIN (>=60 (CALC)); POTASSIUM 4.4 mmol/l (3.5-5.1); SGOT/AST 21 u/l (19-48); SODIUM 140 mmol/l (137-146); TOTAL PROTEIN 6.4 g/dL (6.3-8.2)
[2018-05-02 13:23] LABS: URINE CLARITY CLEAR
[2018-05-02 14:03] VITALS: BP 123/59
== END 2018-05-02 14:20 | disposition home or self-care (01) ==
LOC: ED 11:45
PROVIDERS: Emergency Medicine
PROC: 0T9B70Z Drainage of Bladder with Drainage Device, Via Natural or Artificial Opening (ICD-10-PCS; principal; 2018-05-02)
DX: R33.9 Retention of urine, unspecified (principal); I69.354 Hemiplegia and hemiparesis following cerebral infarction affecting left non-dominant side; I10 Essential (primary) hypertension

== ENCOUNTER 2018-06-21 21:12 | Emergency (ER) | payer MEDICARE ==
[~2018-06-21] VITALS: Ht 172.7 cm; Wt 74.5 kg
[2018-06-21] MEDS ORDERED: NAMENDA5 MG PO (21:39)
[2018-06-21] MEDS ORDERED: CLONAZEPAM0.5 MG PO (21:40)
[2018-06-21 21:50] LABS: HEMATOCRIT 36.1 % (39.0-50.0); HEMOGLOBIN 11.3 g/dl (14.0-18.0); MEAN CELL VOLUME 81.9 fL CALC (80.0-100.0); MEAN CORPUSCULAR HGB 25.6 pG CALC (26.0-32.0); MEAN CORPUSCULAR HGB CONC 31.3 g/L CALC (32.0-36.0); NEUT# 4.28 thou/uL (1.82-7.42); RED BLOOD COUNT 4.41 mill/uL (4.70-6.10); RED CELL DISTRI WIDTH 19.9 % (11.5-15.5)
[2018-06-21 22:06] LABS: ALBUMIN 3.8 g/dL (3.2-5.0); ALKALINE PHOSPHATASE 59 u/l (38-126); ANION GAP 12 (6-22 (CALC)); BILIRUBIN, TOTAL 0.4 mg/dL (0.0-1.4); BUN 15 mg/dL (8-23); BUN/CREATININE RATIO 16 (12-20 (CALC)); CARBON DIOXIDE 26 mmol/l (22-30); CHLORIDE 105 mmol/l (95-108); CREATININE 0.9 mg/dL (0.7-1.3); GFR > 60 ML/MIN (>=60 (CALC)); GFR FOR AFR.AMER. > 60 ML/MIN (>=60 (CALC)); POTASSIUM 3.8 mmol/l (3.5-5.1); SGOT/AST 23 u/l (19-48); SODIUM 140 mmol/l (137-146); TOTAL PROTEIN 6.4 g/dL (6.3-8.2)
[2018-06-21] MEDS ORDERED: DOXYCYCL HYC100 MG PO (22:56)
[2018-06-21] MEDS ORDERED: PREDNISONE50 MG PO (22:56)
[2018-06-21 23:37] VITALS: BP 128/69
== END 2018-06-21 23:37 ==
LOC: ED 21:12
PROVIDERS: Family Medicine
DX: J44.1 Chronic obstructive pulmonary disease with (acute) exacerbation (principal); J20.9 Acute bronchitis, unspecified; J44.0 Chronic obstructive pulmonary disease with (acute) lower respiratory infection; I10 Essential (primary) hypertension; I25.10 Atherosclerotic heart disease of native coronary artery without angina pectoris; K21.9 Gastro-esophageal reflux disease without esophagitis; F41.9 Anxiety disorder, unspecified; Z86.73 Personal history of transient ischemic attack (TIA), and cerebral infarction without residual deficits

== ENCOUNTER 2018-06-30 08:51 | Emergency (ER) | payer MEDICARE ==
[~2018-06-30] VITALS: Ht 172.7 cm; Wt 75.0 kg
[~2018-06-30 08:51] MED LIST changes: +CLONAZEPAM0.5 MG PO; +DOXYCYCL HYC100 MG PO; +PREDNISONE50 MG PO
[2018-06-30] MEDS ORDERED: PREDNISONE20 MG PO (09:31)
[2018-06-30] MEDS ORDERED: BACLOFEN TOP (09:37)
[2018-06-30] MEDS ORDERED: DOXYCYCL HYC100 MG PO (09:39)
[2018-06-30] MEDS ORDERED: LORTAB 5/3255 MG PO (09:39)
[2018-06-30] MEDS ORDERED: CHERATUSSIN PO (09:44)
[2018-06-30] MEDS ORDERED: ZPAK PO (09:44)
[2018-06-30] MEDS ORDERED: OMNI-PAC300 MG PO (09:49)
[2018-06-30] MEDS ORDERED: PREDNISONE50 MG PO (09:51)
[2018-06-30 10:09] VITALS: BP 117/71
== END 2018-06-30 11:07 | disposition home or self-care (01) ==
LOC: ED 08:51
DX: J20.9 Acute bronchitis, unspecified (principal); R05 Cough; R06.02 Shortness of breath

== ENCOUNTER 2018-07-02 13:50 | Inpatient (IN) | payer MEDICARE ==
[~2018-07-02] VITALS: Ht 172.7 cm; Wt 70.1 kg
[~2018-07-02 13:50] MED LIST changes: +BACLOFEN TOP; +CHERATUSSIN PO; +LORTAB 5/3255 MG PO; +OMNI-PAC300 MG PO; +PREDNISONE20 MG PO; +ZPAK PO
[2018-07-02] MEDS ORDERED: BACLOFEN10 MG PO (15:07)
[2018-07-02 15:17] LABS: HEMOGLOBIN 13.2 g/dl (14.0-18.0); IMMATURE GRANULOCYTES 0.9 % (0.0-5.0); MEAN CELL VOLUME 82.9 fL CALC (80.0-100.0); MEAN CORPUSCULAR HGB 25.9 pG CALC (26.0-32.0); MEAN CORPUSCULAR HGB CONC 31.3 g/L CALC (32.0-36.0); NEUT# 11.8 thou/uL (1.82-7.42); RED BLOOD COUNT 5.09 mill/uL (4.70-6.10); RED CELL DISTRI WIDTH 21.4 % (11.5-15.5)
[2018-07-02 15:24] LABS: HEMATOCRIT 42.2 % (39.0-50.0)
[2018-07-02 15:33] LABS: ALBUMIN 3.9 g/dL (3.2-5.0); ALKALINE PHOSPHATASE 63 u/l (38-126); ANION GAP 13 (6-22 (CALC)); BILIRUBIN, TOTAL 0.5 mg/dL (0.0-1.4); BUN 23 mg/dL (8-23); BUN/CREATININE RATIO 23 (12-20 (CALC)); CARBON DIOXIDE 26 mmol/l (22-30); CHLORIDE 105 mmol/l (95-108); GFR > 60 ML/MIN (>=60 (CALC)); GFR FOR AFR.AMER. > 60 ML/MIN (>=60 (CALC)); POTASSIUM 4.4 mmol/l (3.5-5.1); SGOT/AST 16 u/l (19-48); SODIUM 139 mmol/l (137-146); TOTAL PROTEIN 6.9 g/dL (6.3-8.2)
[2018-07-02 19:35] VITALS: BP 170/89
[2018-07-02 23:32] VITALS: BP 132/74
[2018-07-03 04:05] VITALS: BP 121/75
[2018-07-03 05:29] LABS: ANION GAP 17 (6-22 (CALC)); BUN 20 mg/dL (8-23); BUN/CREATININE RATIO 23 (12-20 (CALC)); CARBON DIOXIDE 25 mmol/l (22-30); CHLORIDE 103 mmol/l (95-108); CREATININE 0.9 mg/dL (0.7-1.3); GFR > 60 ML/MIN (>=60 (CALC)); GFR FOR AFR.AMER. > 60 ML/MIN (>=60 (CALC)); POTASSIUM 4.7 mmol/l (3.5-5.1); SODIUM 140 mmol/l (137-146)
[2018-07-03 07:37] LABS: HEMATOCRIT 43.4 % (39.0-50.0); HEMOGLOBIN 13.7 g/dl (14.0-18.0); MEAN CELL VOLUME 82.4 fL CALC (80.0-100.0); MEAN CORPUSCULAR HGB CONC 31.6 g/L CALC (32.0-36.0); PLATELET COUNT 194 thou/uL (130-400); RED BLOOD COUNT 5.27 mill/uL (4.70-6.10); RED CELL DISTRI WIDTH 21.6 % (11.5-15.5)
[2018-07-03 07:58] VITALS: BP 125/68; BP 84/51
[2018-07-03 08:07] LABS: MANUAL DIFFERENTIAL YES
[2018-07-03 11:05] VITALS: BP 108/60
[2018-07-03 15:05] VITALS: BP 109/61; BP 109/68
[2018-07-03 19:50] VITALS: BP 111/56
[2018-07-04 00:01] VITALS: BP 134/66
[2018-07-04 04:01] VITALS: BP 155/83
[2018-07-04 07:24] LABS: HEMATOCRIT 41.3 % (39.0-50.0); HEMOGLOBIN 12.8 g/dl (14.0-18.0); IMMATURE GRANULOCYTES 1.2 % (0.0-5.0); MEAN CELL VOLUME 83.6 fL CALC (80.0-100.0); MEAN CORPUSCULAR HGB 25.9 pG CALC (26.0-32.0); NEUT# 12.69 thou/uL (1.82-7.42); RED BLOOD COUNT 4.94 mill/uL (4.70-6.10); RED CELL DISTRI WIDTH 21.5 % (11.5-15.5)
[2018-07-04 07:36] LABS: ALBUMIN 3.6 g/dL (3.2-5.0); ALKALINE PHOSPHATASE 57 u/l (38-126); AMYLASE < 30 u/l (30-110); ANION GAP 17 (6-22 (CALC)); BILIRUBIN, TOTAL 0.6 mg/dL (0.0-1.4); BUN 22 mg/dL (8-23); BUN/CREATININE RATIO 20 (12-20 (CALC)); CARBON DIOXIDE 23 mmol/l (22-30); CHLORIDE 107 mmol/l (95-108); CREATININE 1.1 mg/dL (0.7-1.3); GFR > 60 ML/MIN (>=60 (CALC)); GFR FOR AFR.AMER. > 60 ML/MIN (>=60 (CALC)); LIPASE 29 u/l (23-300); MAGNESIUM 2.3 mg/dL (1.6-2.3); POTASSIUM 3.9 mmol/l (3.5-5.1); SGOT/AST 15 u/l (19-48); SODIUM 142 mmol/l (137-146); TOTAL PROTEIN 6.3 g/dL (6.3-8.2)
[2018-07-04 08:00] VITALS: BP 112/61
[2018-07-04 12:08] VITALS: BP 134/68
[2018-07-04 16:02] VITALS: BP 117/62; BP 125/69
[2018-07-04 19:20] VITALS: BP 115/63
[2018-07-05] VITALS (7 sets, daily range): BP systolic 118–155; BP diastolic 57–88
[2018-07-05 06:10] LABS: HEMOGLOBIN 12.3 g/dl (14.0-18.0); IMMATURE GRANULOCYTES 1.2 % (0.0-5.0); MEAN CORPUSCULAR HGB 26.2 pG CALC (26.0-32.0); MEAN CORPUSCULAR HGB CONC 31.5 g/L CALC (32.0-36.0); NEUT# 12.9 thou/uL (1.82-7.42); RED BLOOD COUNT 4.7 mill/uL (4.70-6.10); RED CELL DISTRI WIDTH 21.4 % (11.5-15.5)
[2018-07-05 06:38] LABS: ALBUMIN 3.3 g/dL (3.2-5.0); ALKALINE PHOSPHATASE 52 u/l (38-126); ANION GAP 12 (6-22 (CALC)); BILIRUBIN, TOTAL 0.4 mg/dL (0.0-1.4); BUN 19 mg/dL (8-23); BUN/CREATININE RATIO 22 (12-20 (CALC)); CARBON DIOXIDE 24 mmol/l (22-30); CHLORIDE 109 mmol/l (95-108); CREATININE 0.9 mg/dL (0.7-1.3); GFR > 60 ML/MIN (>=60 (CALC)); GFR FOR AFR.AMER. > 60 ML/MIN (>=60 (CALC)); MAGNESIUM 2.2 mg/dL (1.6-2.3); POTASSIUM 4.3 mmol/l (3.5-5.1); SGOT/AST 12 u/l (19-48); SODIUM 141 mmol/l (137-146); TOTAL PROTEIN 5.9 g/dL (6.3-8.2)
[2018-07-06] VITALS (8 sets, daily range): BP systolic 130–167; BP diastolic 66–83
[2018-07-06 05:29] LABS: HEMOGLOBIN 13.8 g/dl (14.0-18.0); IMMATURE GRANULOCYTES 2.2 % (0.0-5.0); MEAN CELL VOLUME 84.1 fL CALC (80.0-100.0); MEAN CORPUSCULAR HGB 26.4 pG CALC (26.0-32.0); MEAN CORPUSCULAR HGB CONC 31.4 g/L CALC (32.0-36.0); NEUT# 15.71 thou/uL (1.82-7.42); RED BLOOD COUNT 5.23 mill/uL (4.70-6.10); RED CELL DISTRI WIDTH 22.1 % (11.5-15.5)
[2018-07-06 05:54] LABS: ALKALINE PHOSPHATASE 57 u/l (38-126); ANION GAP 14 (6-22 (CALC)); BILIRUBIN, TOTAL 0.5 mg/dL (0.0-1.4); BUN 21 mg/dL (8-23); BUN/CREATININE RATIO 23 (12-20 (CALC)); CARBON DIOXIDE 28 mmol/l (22-30); CHLORIDE 103 mmol/l (95-108); CREATININE 0.9 mg/dL (0.7-1.3); GFR > 60 ML/MIN (>=60 (CALC)); GFR FOR AFR.AMER. > 60 ML/MIN (>=60 (CALC)); MAGNESIUM 2.3 mg/dL (1.6-2.3); POTASSIUM 4.5 mmol/l (3.5-5.1); SGOT/AST 18 u/l (19-48); SODIUM 140 mmol/l (137-146); TOTAL PROTEIN 6.8 g/dL (6.3-8.2)
[2018-07-07 04:30] VITALS: BP 172/98
[2018-07-07 05:45] LABS: HEMOGLOBIN 12.9 g/dl (14.0-18.0); IMMATURE GRANULOCYTES 2.5 % (0.0-5.0); MEAN CORPUSCULAR HGB 26.1 pG CALC (26.0-32.0); MEAN CORPUSCULAR HGB CONC 31.5 g/L CALC (32.0-36.0); NEUT# 11.64 thou/uL (1.82-7.42); RED BLOOD COUNT 4.94 mill/uL (4.70-6.10); RED CELL DISTRI WIDTH 21.8 % (11.5-15.5)
[2018-07-07 05:54] LABS: ALBUMIN 3.6 g/dL (3.2-5.0); ALKALINE PHOSPHATASE 54 u/l (38-126); ANION GAP 14 (6-22 (CALC)); BILIRUBIN, TOTAL 0.4 mg/dL (0.0-1.4); BUN 22 mg/dL (8-23); BUN/CREATININE RATIO 25 (12-20 (CALC)); CARBON DIOXIDE 23 mmol/l (22-30); CHLORIDE 107 mmol/l (95-108); CREATININE 0.9 mg/dL (0.7-1.3); GFR > 60 ML/MIN (>=60 (CALC)); GFR FOR AFR.AMER. > 60 ML/MIN (>=60 (CALC)); MAGNESIUM 2.4 mg/dL (1.6-2.3); POTASSIUM 4.3 mmol/l (3.5-5.1); SGOT/AST 20 u/l (19-48); SODIUM 139 mmol/l (137-146); TOTAL PROTEIN 6.3 g/dL (6.3-8.2)
[2018-07-07 08:05] VITALS: BP 148/78
[2018-07-07 11:00] VITALS: BP 137/75
[2018-07-07 14:50] VITALS: BP 119/71
[2018-07-07] MEDS ORDERED: DOXYCYCL HYC100 MG PO (16:34)
[2018-07-07 20:15] VITALS: BP 157/83
[2018-07-08 00:05] VITALS: BP 147/80
[2018-07-08 05:20] VITALS: BP 162/78
[2018-07-08 07:55] VITALS: BP 169/88
== END 2018-07-08 11:00 | disposition home health service (06) | DRG 190 ==
LOC: ED 13:50 → ED-I 17:48 → ED 18:10 → MS2 18:11
PROVIDERS: Emergency Medicine; Internal Medicine Nephrology; ADMIT Internal Medicine; ATTEND Internal Medicine
DX: J44.1 Chronic obstructive pulmonary disease with (acute) exacerbation (principal); J18.9 Pneumonia, unspecified organism; I69.354 Hemiplegia and hemiparesis following cerebral infarction affecting left non-dominant side; J44.0 Chronic obstructive pulmonary disease with (acute) lower respiratory infection; I10 Essential (primary) hypertension; I25.10 Atherosclerotic heart disease of native coronary artery without angina pectoris; K21.9 Gastro-esophageal reflux disease without esophagitis; E78.5 Hyperlipidemia, unspecified; F32.9 Major depressive disorder, single episode, unspecified; F41.1 Generalized anxiety disorder; N40.0 Benign prostatic hyperplasia without lower urinary tract symptoms; F03.90 Unspecified dementia, unspecified severity, without behavioral disturbance, psychotic disturbance, mood disturbance, and anxiety; Z85.118 Personal history of other malignant neoplasm of bronchus and lung; Z95.1 Presence of aortocoronary bypass graft; Z87.891 Personal history of nicotine dependence
CPT/HCPCS: G0378; Q9967

== ENCOUNTER 2019-01-14 08:55 | Observation (INO) | payer MEDICARE ==
[~2019-01-14] VITALS: Ht 172.7 cm; Wt 77.6 kg
[2019-01-14 09:54] LABS: HEMATOCRIT 40.9 % (39.0-50.0); HEMOGLOBIN 12.7 g/dl (14.0-18.0); IMMATURE GRANULOCYTES 0.4 % (0.0-5.0); MEAN CELL VOLUME 85.7 fL CALC (80.0-100.0); MEAN CORPUSCULAR HGB 26.6 pG CALC (26.0-32.0); MEAN CORPUSCULAR HGB CONC 31.1 g/L CALC (32.0-36.0); NEUT# 5.24 thou/uL (1.82-7.42); RED BLOOD COUNT 4.77 mill/uL (4.70-6.10); RED CELL DISTRI WIDTH 16.6 % (11.5-15.5)
[2019-01-14 09:57] LABS: ALBUMIN 3.8 g/dL (3.2-5.0); ALKALINE PHOSPHATASE 81 u/l (38-126); ANION GAP 8 (6-22 (CALC)); BILIRUBIN, TOTAL 0.5 mg/dL (0.0-1.4); BUN 12 mg/dL (8-23); BUN/CREATININE RATIO 16 (12-20 (CALC)); CARBON DIOXIDE 30 mmol/l (22-30); CHLORIDE 107 mmol/l (95-108); CREATININE 0.8 mg/dL (0.7-1.3); GFR > 60 ML/MIN (>=60 (CALC)); GFR FOR AFR.AMER. > 60 ML/MIN (>=60 (CALC)); POTASSIUM 3.8 mmol/l (3.5-5.1); SGOT/AST 23 u/l (19-48); SODIUM 142 mmol/l (137-146); TOTAL PROTEIN 6.9 g/dL (6.3-8.2)
[2019-01-14] MEDS ORDERED: TESSALON PER100 MG PO (12:07)
[2019-01-14] MEDS ORDERED: ZITHROMAX250 MG PO (12:07)
[2019-01-14] MEDS ORDERED: TRELEGY ELLIPTA1 AER IN (13:09)
[2019-01-14] MEDS ORDERED: LORATADINE10 M1 PO (13:10)
[2019-01-14] MEDS ORDERED: DOCUSATE CAL240 MG PO (13:11)
[2019-01-14] MEDS ORDERED: CLONAZEPAM1 MG PO (13:12)
[2019-01-14] MEDS ORDERED: LIPITOR80 M1 PO (13:13)
[2019-01-14] MEDS ORDERED: ZYRTEC-D AL1 PO (13:14)
[2019-01-14 16:00] VITALS: BP 169/86
[2019-01-14] MEDS ORDERED: DOCQLACE100 MG PO (17:08)
[2019-01-14 19:40] VITALS: BP 114/61
[2019-01-15 04:58] VITALS: BP 135/85
[2019-01-15 08:30] VITALS: BP 121/58
[2019-01-15 10:41] VITALS: BP 100/55
[2019-01-15 14:55] VITALS: BP 116/54
[2019-01-15 20:30] VITALS: BP 121/76
[2019-01-16 00:24] VITALS: BP 119/57
[2019-01-16 05:40] VITALS: BP 148/68
[2019-01-16 07:50] VITALS: BP 131/84
[2019-01-16 11:00] VITALS: BP 138/70
[2019-01-16 15:05] VITALS: BP 164/91
[2019-01-16 19:25] VITALS: BP 158/75
[2019-01-17 00:56] VITALS: BP 156/90
[2019-01-17 04:15] VITALS: BP 154/88
[2019-01-17 05:35] LABS: HEMATOCRIT 37.7 % (39.0-50.0); HEMOGLOBIN 11.9 g/dl (14.0-18.0); MEAN CELL VOLUME 85.5 fL CALC (80.0-100.0); MEAN CORPUSCULAR HGB CONC 31.6 g/L CALC (32.0-36.0); RED BLOOD COUNT 4.41 mill/uL (4.70-6.10); RED CELL DISTRI WIDTH 17.3 % (11.5-15.5)
[2019-01-17 05:46] LABS: ANION GAP 10 (6-22 (CALC)); BUN 25 mg/dL (8-23); BUN/CREATININE RATIO 32 (12-20 (CALC)); CARBON DIOXIDE 29 mmol/l (22-30); CHLORIDE 107 mmol/l (95-108); CREATININE 0.8 mg/dL (0.7-1.3); GFR > 60 ML/MIN (>=60 (CALC)); GFR FOR AFR.AMER. > 60 ML/MIN (>=60 (CALC)); SODIUM 141 mmol/l (137-146)
[2019-01-17 06:03] LABS: POTASSIUM 4.6 mmol/l (3.5-5.1)
[2019-01-17 08:05] VITALS: BP 154/85
[2019-01-17 10:42] VITALS: BP 124/62
[2019-01-17] MEDS ORDERED: PREDNISONE10 MG PO (12:33)
[2019-01-17] MEDS ORDERED: GABAPENTIN300 M2 PO (12:33)
[2019-01-17] MEDS ORDERED: ZITHROMAX250 MG PO (12:33)
== END 2019-01-17 15:20 | disposition home or self-care (01) ==
LOC: ED 08:55 → ED-I 11:03 → ED 13:50 → MS2 13:51
PROVIDERS: Emergency Medicine; ADMIT Internal Medicine; ATTEND Internal Medicine
PROC: 0T9B70Z Drainage of Bladder with Drainage Device, Via Natural or Artificial Opening (ICD-10-PCS; principal; 2019-01-14)
DX: J44.1 Chronic obstructive pulmonary disease with (acute) exacerbation (principal); I10 Essential (primary) hypertension; I25.10 Atherosclerotic heart disease of native coronary artery without angina pectoris; J96.10 Chronic respiratory failure, unspecified whether with hypoxia or hypercapnia; I69.354 Hemiplegia and hemiparesis following cerebral infarction affecting left non-dominant side; M62.838 Other muscle spasm; G89.4 Chronic pain syndrome; N40.1 Benign prostatic hyperplasia with lower urinary tract symptoms; N13.8 Other obstructive and reflux uropathy; R33.8 Other retention of urine; E78.5 Hyperlipidemia, unspecified; Z87.891 Personal history of nicotine dependence; Z99.81 Dependence on supplemental oxygen; Z85.118 Personal history of other malignant neoplasm of bronchus and lung; Z95.1 Presence of aortocoronary bypass graft
CPT/HCPCS: Q9967

== ENCOUNTER 2019-04-06 03:13 | Inpatient (IN) | payer MEDICARE ==
[~2019-04-06] VITALS: Ht 172.7 cm; Wt 77.0 kg
[~2019-04-06 03:13] MED LIST changes: +CLONAZEPAM1 MG PO; +DOCQLACE100 MG PO; +DOCUSATE CAL240 MG PO; +GABAPENTIN300 M2 PO; +LIPITOR80 M1 PO; +TESSALON PER100 MG PO; +TRELEGY ELLIPTA1 AER IN; +ZITHROMAX250 MG PO; +ZYRTEC-D AL1 PO
[2019-04-06] MEDS ORDERED: SINGULAIR10 MG PO (03:32)
[2019-04-06] MEDS ORDERED: CORDARONE/200 MG/TAB PO (03:33)
[2019-04-06] MEDS ORDERED: ELIQUIS5 MG PO (03:34)
[2019-04-06] MEDS ORDERED: EQ ASPIRIN LOW81 MG PO (03:35)
[2019-04-06] MEDS ORDERED: SPIRIVA RE2.5 MCG/AC IN (03:36)
[2019-04-06] MEDS ORDERED: TESSALON PER100 MG PO (03:37)
[2019-04-06] MEDS ORDERED: FLUTICASON50 MCG/ACT IN (03:39)
[2019-04-06 03:47] LABS: HEMATOCRIT 36.5 % (39.0-50.0); HEMOGLOBIN 11.4 g/dl (14.0-18.0); IMMATURE GRANULOCYTES 0.9 % (0.0-5.0); MEAN CELL VOLUME 88.4 fL CALC (80.0-100.0); MEAN CORPUSCULAR HGB 27.6 pG CALC (26.0-32.0); MEAN CORPUSCULAR HGB CONC 31.2 g/L CALC (32.0-36.0); NEUT# 4.18 thou/uL (1.82-7.42); RED BLOOD COUNT 4.13 mill/uL (4.70-6.10); RED CELL DISTRI WIDTH 16.6 % (11.5-15.5); URINE BILIRUBIN - DIPSTICK NEGATIVE (NEGATIVE); URINE BLOOD DIPSTICK LARGE (NEGATIVE); URINE COLOR YELLOW; URINE GLUCOSE - DIPSTICK NEGATIVE (NEGATIVE); URINE PROTEIN - DIPSTICK 30 mg/dL (NEG-TRACE)
[2019-04-06 03:51] LABS: URINE LEUK ESTERASE MODERATE (NEGATIVE); URINE NITRITE - DIPSTICK POSITIVE (Negative)
[2019-04-06 03:52] LABS: URINE KETONE Negative (NEGATIVE)
[2019-04-06 03:54] LABS: URINE RBC >100 RBC/hpf (0-5); URINE WBC 20-50 WBC/hpf (0-5)
[2019-04-06 03:55] LABS: URINE BACTERIA MANY hpf; URINE EPITHELIAL CELLS MODERATE EPI/hpf (0-FEW)
[2019-04-06 03:58] LABS: ALBUMIN 3.2 g/dL (3.2-5.0); ALKALINE PHOSPHATASE 72 u/l (38-126); ANION GAP 10 (6-22 (CALC)); BILIRUBIN, TOTAL 0.4 mg/dL (0.0-1.4); BUN 12 mg/dL (8-23); BUN/CREATININE RATIO 14 (12-20 (CALC)); CARBON DIOXIDE 27 mmol/l (22-30); CHLORIDE 107 mmol/l (95-108); CREATININE 0.8 mg/dL (0.7-1.3); GFR > 60 ML/MIN (>=60 (CALC)); GFR FOR AFR.AMER. > 60 ML/MIN (>=60 (CALC)); POTASSIUM 4.1 mmol/l (3.5-5.1); PROTHROMBIN TIME 10.7 SECONDS (9.0-12.5); SGOT/AST 20 u/l (19-48); SODIUM 140 mmol/l (137-146); TOTAL PROTEIN 6.3 g/dL (6.3-8.2)
[2019-04-06 04:10] LABS: MYOGLOBIN 50 ng/mL (0 - 121)
[2019-04-06 07:25] VITALS: BP 156/70
[2019-04-06 10:05] VITALS: BP 119/52
[2019-04-06 11:35] VITALS: BP 107/50
[2019-04-06 14:59] VITALS: BP 120/56
[2019-04-06 19:30] VITALS: BP 122/49
[2019-04-06 23:54] VITALS: BP 118/59
[2019-04-07 04:26] VITALS: BP 116/59
[2019-04-07 05:20] LABS: HEMATOCRIT 32.3 % (39.0-50.0); HEMOGLOBIN 10.1 g/dl (14.0-18.0); IMMATURE GRANULOCYTES 0.6 % (0.0-5.0); MEAN CELL VOLUME 88.5 fL CALC (80.0-100.0); MEAN CORPUSCULAR HGB 27.7 pG CALC (26.0-32.0); MEAN CORPUSCULAR HGB CONC 31.3 g/L CALC (32.0-36.0); NEUT# 10.57 thou/uL (1.82-7.42); RED BLOOD COUNT 3.65 mill/uL (4.70-6.10); RED CELL DISTRI WIDTH 17.2 % (11.5-15.5)
[2019-04-07 05:37] LABS: ALBUMIN 3.1 g/dL (3.2-5.0); ALKALINE PHOSPHATASE 72 u/l (38-126); ANION GAP 13 (6-22 (CALC)); BUN 13 mg/dL (8-23); BUN/CREATININE RATIO 14 (12-20 (CALC)); CARBON DIOXIDE 23 mmol/l (22-30); CHLORIDE 110 mmol/l (95-108); CREATININE 0.9 mg/dL (0.7-1.3); GFR > 60 ML/MIN (>=60 (CALC)); GFR FOR AFR.AMER. > 60 ML/MIN (>=60 (CALC)); POTASSIUM 4.2 mmol/l (3.5-5.1); SGOT/AST 20 u/l (19-48); SODIUM 142 mmol/l (137-146)
[2019-04-07 05:38] LABS: BILIRUBIN, TOTAL 0.2 mg/dL (0.0-1.4)
[2019-04-07 08:20] VITALS: BP 179/73
[2019-04-07 08:35] VITALS: BP 133/61
[2019-04-07 11:07] VITALS: BP 109/45
[2019-04-07 16:31] VITALS: BP 128/52
[2019-04-07 19:10] VITALS: BP 138/66
[2019-04-08] VITALS (7 sets, daily range): BP systolic 124–169; BP diastolic 60–88
[2019-04-08 05:02] LABS: HEMOGLOBIN 9.8 g/dl (14.0-18.0); IMMATURE GRANULOCYTES 0.7 % (0.0-5.0); MEAN CELL VOLUME 89.9 fL CALC (80.0-100.0); MEAN CORPUSCULAR HGB 26.7 pG CALC (26.0-32.0); MEAN CORPUSCULAR HGB CONC 29.7 g/L CALC (32.0-36.0); NEUT# 12.23 thou/uL (1.82-7.42); RED BLOOD COUNT 3.67 mill/uL (4.70-6.10); RED CELL DISTRI WIDTH 18.1 % (11.5-15.5)
[2019-04-08 05:21] LABS: ANION GAP 11 (6-22 (CALC)); BUN 14 mg/dL (8-23); BUN/CREATININE RATIO 19 (12-20 (CALC)); CARBON DIOXIDE 26 mmol/l (22-30); CHLORIDE 111 mmol/l (95-108); CREATININE 0.8 mg/dL (0.7-1.3); GFR > 60 ML/MIN (>=60 (CALC)); GFR FOR AFR.AMER. > 60 ML/MIN (>=60 (CALC)); MAGNESIUM 2.2 mg/dL (1.6-2.3); POTASSIUM 4.8 mmol/l (3.5-5.1); SODIUM 143 mmol/l (137-146)
[2019-04-09] VITALS (7 sets, daily range): BP systolic 131–160; BP diastolic 63–92
[2019-04-09 05:30] LABS: HEMATOCRIT 35.2 % (39.0-50.0); HEMOGLOBIN 10.5 g/dl (14.0-18.0); IMMATURE GRANULOCYTES 1.8 % (0.0-5.0); MEAN CORPUSCULAR HGB 26.9 pG CALC (26.0-32.0); MEAN CORPUSCULAR HGB CONC 29.8 g/L CALC (32.0-36.0); NEUT# 12.22 thou/uL (1.82-7.42); RED BLOOD COUNT 3.91 mill/uL (4.70-6.10); RED CELL DISTRI WIDTH 18.3 % (11.5-15.5)
[2019-04-09 05:38] LABS: ANION GAP 13 (6-22 (CALC)); BUN 17 mg/dL (8-23); BUN/CREATININE RATIO 22 (12-20 (CALC)); CARBON DIOXIDE 25 mmol/l (22-30); CHLORIDE 109 mmol/l (95-108); CREATININE 0.7 mg/dL (0.7-1.3); GFR > 60 ML/MIN (>=60 (CALC)); GFR FOR AFR.AMER. > 60 ML/MIN (>=60 (CALC)); POTASSIUM 4.5 mmol/l (3.5-5.1); SODIUM 142 mmol/l (137-146)
[2019-04-10] VITALS (7 sets, daily range): BP systolic 134–171; BP diastolic 55–87
[2019-04-10 06:15] LABS: ANION GAP 12 (6-22 (CALC)); BUN 21 mg/dL (8-23); BUN/CREATININE RATIO 29 (12-20 (CALC)); CARBON DIOXIDE 26 mmol/l (22-30); CHLORIDE 107 mmol/l (95-108); CREATININE 0.7 mg/dL (0.7-1.3); GFR > 60 ML/MIN (>=60 (CALC)); GFR FOR AFR.AMER. > 60 ML/MIN (>=60 (CALC)); POTASSIUM 4.4 mmol/l (3.5-5.1); SODIUM 140 mmol/l (137-146)
[2019-04-10] MEDS ORDERED: MUCINEX600 MG PO ×2 (17:49→18:00)
[2019-04-10] MEDS ORDERED: TESSALON PERLE100 MG PO (17:49)
[2019-04-10] MEDS ORDERED: LEVAQUIN750 MG PO (17:54)
== END 2019-04-10 19:23 | disposition home health service (06) | DRG 190 ==
LOC: ED 03:13 → ED-I 05:50 → ED 06:12 → MS2 06:13 → ICU 06:13 → MS2 11:23
PROVIDERS: Emergency Medicine; Nurse Practitioner Family; ADMIT Internal Medicine; ATTEND Internal Medicine
PROC: 0T9B70Z Drainage of Bladder with Drainage Device, Via Natural or Artificial Opening (ICD-10-PCS; principal; 2019-04-07)
DX: J44.0 Chronic obstructive pulmonary disease with (acute) lower respiratory infection (principal); J18.9 Pneumonia, unspecified organism; N39.0 Urinary tract infection, site not specified; I69.354 Hemiplegia and hemiparesis following cerebral infarction affecting left non-dominant side; J96.10 Chronic respiratory failure, unspecified whether with hypoxia or hypercapnia; I48.20 Chronic atrial fibrillation, unspecified; G93.49 Other encephalopathy; J44.1 Chronic obstructive pulmonary disease with (acute) exacerbation; Y95 Nosocomial condition; B96.20 Unspecified Escherichia coli [E. coli] as the cause of diseases classified elsewhere; Z95.1 Presence of aortocoronary bypass graft; I10 Essential (primary) hypertension; I25.10 Atherosclerotic heart disease of native coronary artery without angina pectoris; Z88.0 Allergy status to penicillin; Z85.820 Personal history of malignant melanoma of skin; Z99.81 Dependence on supplemental oxygen; Z79.01 Long term (current) use of anticoagulants; Z85.118 Personal history of other malignant neoplasm of bronchus and lung; I73.9 Peripheral vascular disease, unspecified; Z90.2 Acquired absence of lung [part of]; Z87.891 Personal history of nicotine dependence; M62.838 Other muscle spasm; R33.9 Retention of urine, unspecified; M62.81 Muscle weakness (generalized); B96.89 Other specified bacterial agents as the cause of diseases classified elsewhere

== ENCOUNTER 2019-04-11 08:21 | Observation (INO) | payer MEDICARE ==
[~2019-04-11] VITALS: Ht 172.7 cm; Wt 78.0 kg
[~2019-04-11 08:21] MED LIST changes: +CORDARONE/200 MG/TAB PO; +ELIQUIS5 MG PO; +EQ ASPIRIN LOW81 MG PO; +FLUTICASON50 MCG/ACT IN; +LEVAQUIN750 MG PO; +MUCINEX600 MG PO; +SINGULAIR10 MG PO; +SPIRIVA RE2.5 MCG/AC IN; +TESSALON PERLE100 MG PO
[2019-04-11 09:04] LABS: HEMATOCRIT 34.1 % (39.0-50.0); HEMOGLOBIN 10.8 g/dl (14.0-18.0); IMMATURE GRANULOCYTES 1.8 % (0.0-5.0); MEAN CORPUSCULAR HGB 27.6 pG CALC (26.0-32.0); MEAN CORPUSCULAR HGB CONC 31.7 g/L CALC (32.0-36.0); NEUT# 8.61 thou/uL (1.82-7.42); RED BLOOD COUNT 3.92 mill/uL (4.70-6.10); RED CELL DISTRI WIDTH 17.5 % (11.5-15.5)
[2019-04-11 09:18] LABS: ALBUMIN 3.3 g/dL (3.2-5.0); ALKALINE PHOSPHATASE 69 u/l (38-126); BUN 27 mg/dL (8-23); BUN/CREATININE RATIO 28 (12-20 (CALC)); CHLORIDE 104 mmol/l (95-108); GFR > 60 ML/MIN (>=60 (CALC)); GFR FOR AFR.AMER. > 60 ML/MIN (>=60 (CALC)); POTASSIUM 3.8 mmol/l (3.5-5.1); SODIUM 139 mmol/l (137-146); TOTAL PROTEIN 6.4 g/dL (6.3-8.2)
[2019-04-11 09:21] LABS: ANION GAP 7 (6-22 (CALC)); BILIRUBIN, TOTAL 0.5 mg/dL (0.0-1.4); CARBON DIOXIDE 32 mmol/l (22-30); SGOT/AST 37 u/l (19-48)
[2019-04-11 12:55] VITALS: BP 140/70
[2019-04-11 16:11] VITALS: BP 160/72
[2019-04-11 19:19] VITALS: BP 142/62
[2019-04-11 23:30] VITALS: BP 144/75
[2019-04-12] VITALS (7 sets, daily range): BP systolic 117–158; BP diastolic 61–94
[2019-04-12 11:12] LABS: URINE BILIRUBIN - DIPSTICK NEGATIVE (NEGATIVE); URINE BLOOD DIPSTICK LARGE (NEGATIVE); URINE COLOR YELLOW; URINE GLUCOSE - DIPSTICK NEGATIVE (NEGATIVE); URINE KETONE NEGATIVE (NEGATIVE); URINE LEUK ESTERASE NEGATIVE (NEGATIVE); URINE NITRITE - DIPSTICK NEGATIVE (Negative); URINE PROTEIN - DIPSTICK NEGATIVE (NEG-TRACE); URINE SPECIFIC GRAVITY <=1.005; URINE UROBILINOGEN - DIPSTICK 0.2 E.U./dL (0.2)
[2019-04-13 04:13] VITALS: BP 154/80
[2019-04-13 04:41] VITALS: BP 129/71
[2019-04-13 08:00] VITALS: BP 130/68
[2019-04-13 09:16] LABS: HEMATOCRIT 35.6 % (39.0-50.0); HEMOGLOBIN 11.1 g/dl (14.0-18.0); IMMATURE GRANULOCYTES 2.4 % (0.0-5.0); MEAN CORPUSCULAR HGB 26.8 pG CALC (26.0-32.0); MEAN CORPUSCULAR HGB CONC 31.2 g/L CALC (32.0-36.0); NEUT# 8.73 thou/uL (1.82-7.42); RED BLOOD COUNT 4.14 mill/uL (4.70-6.10); RED CELL DISTRI WIDTH 17.2 % (11.5-15.5)
[2019-04-13 09:35] LABS: ANION GAP 9 (6-22 (CALC)); BUN 20 mg/dL (8-23); BUN/CREATININE RATIO 24 (12-20 (CALC)); CARBON DIOXIDE 29 mmol/l (22-30); CHLORIDE 103 mmol/l (95-108); CREATININE 0.8 mg/dL (0.7-1.3); GFR > 60 ML/MIN (>=60 (CALC)); GFR FOR AFR.AMER. > 60 ML/MIN (>=60 (CALC)); MAGNESIUM 2.1 mg/dL (1.6-2.3); POTASSIUM 3.5 mmol/l (3.5-5.1); SODIUM 137 mmol/l (137-146)
[2019-04-13 11:00] VITALS: BP 144/76
[2019-04-13 16:00] VITALS: BP 105/63
[2019-04-13 18:40] VITALS: BP 118/56
[2019-04-14] VITALS: BP 130/66
[2019-04-14 03:52] VITALS: BP 115/65
[2019-04-14 07:51] VITALS: BP 115/73
[2019-04-14] MEDS ORDERED: CLONAZEPAM1 MG PO (10:44)
[2019-04-14] MEDS ORDERED: PREDNISONE10 MG PO (10:44)
[2019-04-14 11:01] VITALS: BP 115/59
== END 2019-04-14 15:16 ==
LOC: ED 08:21 → ED-I 10:21 → MS2 10:44 → ED 10:44 → MS2 04-14 15:16
PROVIDERS: Nurse Practitioner Family; ADMIT Internal Medicine; ATTEND Internal Medicine
DX: J15.6 Pneumonia due to other Gram-negative bacteria (principal); J44.1 Chronic obstructive pulmonary disease with (acute) exacerbation; J44.0 Chronic obstructive pulmonary disease with (acute) lower respiratory infection; J96.10 Chronic respiratory failure, unspecified whether with hypoxia or hypercapnia; I25.10 Atherosclerotic heart disease of native coronary artery without angina pectoris; I10 Essential (primary) hypertension; E78.5 Hyperlipidemia, unspecified; N40.1 Benign prostatic hyperplasia with lower urinary tract symptoms; R33.8 Other retention of urine; H10.32 Unspecified acute conjunctivitis, left eye; I48.20 Chronic atrial fibrillation, unspecified; N39.0 Urinary tract infection, site not specified; B96.20 Unspecified Escherichia coli [E. coli] as the cause of diseases classified elsewhere; I69.964 Other paralytic syndrome following unspecified cerebrovascular disease affecting left non-dominant side; G82.20 Paraplegia, unspecified; M62.838 Other muscle spasm; Y95 Nosocomial condition; Z96.0 Presence of urogenital implants; Z95.1 Presence of aortocoronary bypass graft; Z99.81 Dependence on supplemental oxygen; Z79.01 Long term (current) use of anticoagulants; Z87.891 Personal history of nicotine dependence
CPT/HCPCS: G0378

== ENCOUNTER 2019-07-16 | Emergency (ER) | payer MEDICARE ==
[2019-07-16 19:42] LABS: HEMATOCRIT 33.7 % (39.0-50.0); HEMOGLOBIN 9.8 g/dl (14.0-18.0); IMMATURE GRANULOCYTES 1.5 % (0.0-5.0); MEAN CORPUSCULAR HGB 22.8 pG CALC (26.0-32.0); MEAN CORPUSCULAR HGB CONC 29.1 g/L CALC (32.0-36.0); NEUT# 9.45 thou/uL (1.82-7.42); RED BLOOD COUNT 4.3 mill/uL (4.70-6.10); RED CELL DISTRI WIDTH 17.3 % (11.5-15.5)
[2019-07-16 19:44] LABS: MEAN CELL VOLUME 78.4 fL CALC (80.0-100.0)
[2019-07-16 19:47] LABS: URINE BILIRUBIN - DIPSTICK NEGATIVE (NEGATIVE); URINE BLOOD DIPSTICK SMALL (NEGATIVE); URINE COLOR YELLOW; URINE GLUCOSE - DIPSTICK NEGATIVE (NEGATIVE); URINE KETONE NEGATIVE (NEGATIVE); URINE NITRITE - DIPSTICK NEGATIVE (Negative); URINE PH 8.5 (4.5-8.0); URINE PROTEIN - DIPSTICK 100 mg/dL (NEG-TRACE); URINE SPECIFIC GRAVITY 1.015
[2019-07-16 19:52] LABS: URINE LEUK ESTERASE MODERATE (NEGATIVE)
[2019-07-16 19:56] LABS: URINE BACTERIA FEW hpf; URINE SQUAMOUS EPITHELIAL CELL FEW EPI/hpf (0-FEW); URINE WBC TNTC WBC/hpf (0-5)
[2019-07-16 20:01] LABS: ALBUMIN 3.5 g/dL (3.2-5.0); ALKALINE PHOSPHATASE 64 u/l (38-126); ANION GAP 12 (6-22 (CALC)); BILIRUBIN, TOTAL 0.7 mg/dL (0.0-1.4); BUN 21 mg/dL (8-23); BUN/CREATININE RATIO 24 (12-20 (CALC)); CARBON DIOXIDE 26 mmol/l (22-30); CHLORIDE 102 mmol/l (95-108); CPK 197 u/l (52-200); CREATININE 0.9 mg/dL (0.7-1.3); GFR > 60 ML/MIN (>=60 (CALC)); GFR FOR AFR.AMER. > 60 ML/MIN (>=60 (CALC)); SGOT/AST 39 u/l (19-48); SODIUM 136 mmol/l (137-146); TOTAL PROTEIN 6.7 g/dL (6.3-8.2)
[2019-07-16 20:05] LABS: POTASSIUM 4.3 mmol/l (3.5-5.1)
[2019-07-16 20:14] LABS: MYOGLOBIN 136 ng/mL (0 - 121)
[2019-07-16 20:32] LABS: TSH, 3RD GENERATION 0.88 uIU/mL (0.47 - 4.68)
[2019-07-16] MEDS ORDERED: BACTRIM DS1 TAB PO (21:09)
== END 2019-07-16 22:13 | disposition home or self-care (01) ==
PROVIDERS: Family Medicine
DX: N39.0 Urinary tract infection, site not specified (principal); I10 Essential (primary) hypertension; I25.10 Atherosclerotic heart disease of native coronary artery without angina pectoris; J44.9 Chronic obstructive pulmonary disease, unspecified; I48.91 Unspecified atrial fibrillation; Z95.1 Presence of aortocoronary bypass graft; Z96.0 Presence of urogenital implants

== ENCOUNTER 2019-09-14 11:04 | Inpatient (IN) | payer MEDICARE ==
[~2019-09-14] VITALS: Ht 172.7 cm; Wt 75.2 kg
[~2019-09-14 11:04] MED LIST changes: +BACTRIM DS1 TAB PO
--- NOTE | 2019-09-14 11:10 | NUR ---
PT BROUGHT TO ER PER EMS WITH NON REBREATHER ON, PRODUCTIVE COUGHING WITH YELLOWISH SPUTUM.
--- NOTE | 2019-09-14 11:15 | NUR ---
PT CHANGED TO GOWN. MONITORS APPLIED. RESPIRATORY THERAPY AT BEDSIDE. DR BLACKBURN AT BEDSIDE. PT PLACED ON NC 2.5L O2. PRODUCTIVE COUGH. DIMINISHED BREATH SOUNDS BILAT. HUITRON IN PLACE FOR [facility].
--- NOTE | 2019-09-14 11:25 | NUR ---
COVID SWAB AND BLOOD SPECIMEN COLLECTED
[2019-09-14 12:14] LABS: HEMOGLOBIN 9.8 g/dl (14.0-18.0); MEAN CELL VOLUME 78.5 fL CALC (80.0-100.0); MEAN CORPUSCULAR HGB 22.6 pG CALC (26.0-32.0); MEAN CORPUSCULAR HGB CONC 28.8 g/dL CAL (32.0-36.0); NEUT# 6.02 thou/uL (1.82-7.42); RED BLOOD COUNT 4.33 mill/uL (4.70-6.10); RED CELL DISTRI WIDTH 22.7 % (11.5-15.5)
--- NOTE | 2019-09-14 12:15 | NUR ---
SECOND SET OF BLOOD CULTURES DRAWN AND ANTIBIOTICS STARTED. RECTAL TEMP TAKEN 98. FLU AND STREP SWABS DONE.
[2019-09-14 12:35] LABS: ALBUMIN 3.9 g/dL (3.2-5.0); ALKALINE PHOSPHATASE 80 u/l (38-126); ANION GAP 11 (6-22 (CALC)); BUN 9 mg/dL (8-23); BUN/CREATININE RATIO 9 (12-20 (CALC)); CARBON DIOXIDE 31 mmol/l (22-30); CHLORIDE 103 mmol/l (95-108); CREATININE 0.9 mg/dL (0.7-1.3); GFR > 60 ML/MIN (>=60 (CALC)); GFR FOR AFR.AMER. > 60 ML/MIN (>=60 (CALC)); LIPASE 31 u/l (23-300); POTASSIUM 4.1 mmol/l (3.5-5.1); SGOT/AST 37 u/l (19-48); SODIUM 140 mmol/l (137-146); TOTAL PROTEIN 7.7 g/dL (6.3-8.2)
[2019-09-14 12:38] LABS: BILIRUBIN, TOTAL 0.4 mg/dL (0.0-1.4)
--- NOTE | 2019-09-14 13:16 | NUR ---
SPOKE WITH PATIENTS .
[2019-09-14] MEDS ORDERED: SERTRALINE50 MG PO (13:32)
[2019-09-14] MEDS ORDERED: ATORVASTATIN CA80 MG PO (13:32)
[2019-09-14] MEDS ORDERED: FLAVOXATE100 MG PO (13:33)
[2019-09-14] MEDS ORDERED: GABAPENTIN100 MG PO (13:34)
[2019-09-14] MEDS ORDERED: CLONAZEPAM1 MG PO (13:35)
[2019-09-14] MEDS ORDERED: VISINE DRY EYE OU (13:36)
[2019-09-14] MEDS ORDERED: BACLOFEN10 MG PO (13:37)
[2019-09-14] MEDS ORDERED: ELIQUIS5 MG PO (13:38)
[2019-09-14] MEDS ORDERED: CVS OMEPRAZOLE20 MG PO (13:40)
[2019-09-14] MEDS ORDERED: CLOPIDOGREL75 MG PO (13:40)
[2019-09-14] MEDS ORDERED: TAMSULOSIN HCL0.4 MG PO (13:41)
[2019-09-14] MEDS ORDERED: TRELEGY ELLIPTA1 AER IN (13:42)
[2019-09-14] MEDS ORDERED: MONTELUKAST SOD10 MG PO (13:42)
[2019-09-14 13:49] LABS: URINE BILIRUBIN - DIPSTICK NEGATIVE (NEGATIVE); URINE BLOOD DIPSTICK MODERATE (NEGATIVE); URINE COLOR YELLOW; URINE GLUCOSE - DIPSTICK NEGATIVE (NEGATIVE); URINE KETONE NEGATIVE (NEGATIVE); URINE LEUK ESTERASE MODERATE (NEGATIVE); URINE NITRITE - DIPSTICK POSITIVE (Negative); URINE PH 7.5 (4.5-8.0); URINE PROTEIN - DIPSTICK TRACE mg/dL (NEG-TRACE); URINE RBC 0-2 RBC/hpf (0-5); URINE SPECIFIC GRAVITY 1.025; URINE WBC 0-2 WBC/hpf (0-5)
--- NOTE | 2019-09-14 15:20 | NUR ---
PT TAKEN VIA STRETCHER TO MED SURG. TELEMETRY IN PLACE
[2019-09-14 15:25] VITALS: BP 119/64
--- NOTE | 2019-09-14 15:57 | NUR ---
S: ELKE CORBIN is a 64 M who presents with PNEUMONIA . He has a history of SOB. All medications in patient's chart were reviewed. O: VS: BP 119/64, P 78, RR 20,T 98.3 W 75.2kg , HT 68 IN, Scr= 0.9,CrCl= 75ml/min A: Urine culture is pending P: Patient is on CEFEPIME 2 GRAM Q12H. Vancomycin ordered for pharmacy to dose. Start Vancomycin 1GRAM IV Q12H. Vancomycin trough is drawn before the 4th dose on 09/15/19 @2230. Vancomycin goal trough is between 15-20 mcg/ml. Pharmacy will follow and or advise on antibiotics use as needed. BIANCA HUSTOND
--- NOTE | 2019-09-14 16:00 | NUR ---
PT ARRIVES TO ROOM 282 VIA STRETCHER FROM THE ER ACCOMPANIED BY SKY CLAUDIO. PT IS ALERT AND ORIENTED X 3. LUNGS SLIGHTLY COARSE TO LEFT SIDE, 3 LPM NC, NO COMPLAINT OF SHORTNESS OF BREATH. SKIN INTACT. 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 IV RETAPED IT WAS LEAKING. PT AWARE OF THE WAIT FOR COVID-19 RESULT PRIOR TO TAKING HIM TO REGULAR ROOM. PT SEEN BY RAD DIAS.
[2019-09-14 19:05] VITALS: BP 95/68
--- NOTE | 2019-09-14 19:33 | NUR ---
Patient was asked he wanted to wash up at this time 1904. He refused a bed bath.
--- NOTE | 2019-09-14 20:46 | NUR ---
PT. SITTING UP IN BED AND REPORTS HE NEEDS TO HAVE A BM, PT. IS UNABLE TO MOVE LEFT SIDE AND STAFF ATTEMPTED TO GET HIM OOB WITHOUT SUCCESS. PT. ABLE TO STAND, BUT NOT ABLE TO PIVOT AND TURN TO GET ONTO BSC AND SAT BACK INTO BED. BOOSTED BACK UP INTO BED AND ATTEMPTED TO HAVE PT. GO ON BEDPAIN AND PT. REFUSES AND REPORTS HE CAN NOT GO IN THERE, THAT IF HE NEEDS TO GO HE WILL JUST GO IN THE BED. PT. HAS EXTREME SOB ON EXERTION, O2 INFUSING PER NC @3LITERS/MIN. AFTER A FEW MINUTES OF DEEP BREATHING, PT. IS ABLE TO GET RESPIRATIONS BACK TO NORMAL.PT. IS DEMANDING WITH STAFF.ASSESSMENT COMPLETED. LEFT EXTREMETIES WITH TRACE SWELLING NOTED AND ELEAVTED LUE ONTO PILLOW. HUITRON CATHETER IN PLACE, UNKOWN WHEN IT WAS PLACED. WILL ATTEMPT TO CALL PRASANNA MENDES AND SEE IF STAFF KNOWS WHEN. IV SITE PATENT AND FLUSHES WELL WITH GOOD BLOOD RETURN. FRESH WATER PROVIDED. CALL LIGHT IS IN REACH.
[2019-09-15] VITALS (7 sets, daily range): BP systolic 102–126; BP diastolic 55–74
--- NOTE | 2019-09-15 00:30 | NUR ---
REPOSITIONED ONTO RIGHT SIDE AND LEFT ARM ELEVATED. PO FLUIDS OFFERED. DENIES FURTHER NEEDS. CALL LIGHT IS IN REACH.
--- NOTE | 2019-09-15 02:30 | NUR ---
PT. RESTING IN BED WITH EYES CLOSED AND AWAKENED EASILY. REPOSITIONED AT THIS TIME. CALL LIGHT IS IN REACH. WILL CONTINUE TO MONITOR.
--- NOTE | 2019-09-15 05:45 | NUR ---
SPOKE WITH PRASANNA WILSON THIS AM AND PER HER PT. GETS HUITRON CATHETER CHANGED MONTHLY BY [facility], BUT IS NOT SURE OF THE DATE AND SHE WILL CHECK WHEN SHE IS IN OFFICE. I WILL ALSO PASS THIS ALONG IN REPORT TO [facility] WHEN THEY OPEN IN AM.
[2019-09-15 06:02] LABS: HEMOGLOBIN 9.1 g/dl (14.0-18.0); IMMATURE GRANULOCYTES 1.1 % (0.0-5.0); MEAN CELL VOLUME 78.5 fL CALC (80.0-100.0); MEAN CORPUSCULAR HGB CONC 29.4 g/dL CAL (32.0-36.0); NEUT# 6.51 thou/uL (1.82-7.42); RED BLOOD COUNT 3.95 mill/uL (4.70-6.10); RED CELL DISTRI WIDTH 22.5 % (11.5-15.5)
[2019-09-15 06:22] LABS: ALKALINE PHOSPHATASE 63 u/l (38-126); ANION GAP 8 (6-22 (CALC)); BILIRUBIN, TOTAL 0.3 mg/dL (0.0-1.4); BUN 13 mg/dL (8-23); BUN/CREATININE RATIO 16 (12-20 (CALC)); CARBON DIOXIDE 27 mmol/l (22-30); CHLORIDE 109 mmol/l (95-108); CREATININE 0.8 mg/dL (0.7-1.3); GFR > 60 ML/MIN (>=60 (CALC)); GFR FOR AFR.AMER. > 60 ML/MIN (>=60 (CALC)); POTASSIUM 4.7 mmol/l (3.5-5.1); SGOT/AST 26 u/l (19-48); SODIUM 139 mmol/l (137-146)
[2019-09-15 06:25] LABS: TOTAL PROTEIN 5.9 g/dL (6.3-8.2)
--- NOTE | 2019-09-15 07:20 | NUR ---
CHANGE OF SHIFT REPORT RECEIVED FROM SHANON CUNNINGHAM.
--- NOTE | 2019-09-15 12:00 | NUR ---
PT SITTING UP IN RECLINER. PT IS ABLE TO MAKE NEEDS KNOWN. EDUCATION PROVIDED ON ANTIBIOTICS REGIMEN. MEDS ON EMAR REVIEWED WITH PT. FLIGHT COMMUNICATIONS SPECIALIST WILL CONTINUE TO MONITOR
--- NOTE | 2019-09-15 16:10 | NUR ---
ULTRAM ADMINISTERED FOR COMPLAINT OF LEFT SIDE PAIN. INFECTION CONTROL RN WILL CONTINUE TO MONITOR. PCG NOTIFIED OF POC. NO NEW CONCERNS AT THIS TIME. CALL LIGHT WITHIN EASY REACH
--- NOTE | 2019-09-15 18:56 | NUR ---
PER LAB COVID IS NEGATIVE.
--- NOTE | 2019-09-15 20:45 | NUR ---
PHYSICAL ASSEMENT COMPLETE. VS TAKEN BY EMBEDDED SYSTEMS ENGINEER ASSESSED. PLAN OF CARE REVIEWED W/ PT, DENIES QUESTIONS, VERBALIZES UNDERSTANDING. DENIES NEEDS AT THIS TIME. CALL MCNALLY WITHIN REACH, AGREES TO CALL PRN.BED LOCKED IN LOW POSITION W/ BEDRAILS UP X2, ITEMS WITHIN REACH.
--- NOTE | 2019-09-16 00:30 | NUR ---
VS TAKEN BY MELTER HELPER ASSESSED. PT APPEARS TO BE SLEEPING COMFORTABLY. NO APPARENT DISTRESS. RESPIRATIONS REGULAR AND UNLABORED.CALL MCNALLY REMAINS WITHIN REACH. BED REMAINS LOCKED IN LOW POSITION W/ BEDRAILS UP X2, ITEMS REMAIN WITHIN REACH.
[2019-09-16 04:00] VITALS: BP 146/77
--- NOTE | 2019-09-16 05:22 | NUR ---
ASSESMENT UNCHANGED, VSS. PT APPEARS TO BE SLEEPING COMFORTABLY, NO APPARENT DISTRESS, RESPIRATIONS REGULAR AND UNLABORED. BED REMAINS LOCKED IN LOW POSITION W/ BEDRAILS UP X2 AND ITEMS WITHIN REACH. CALL MCNALLY REMAINS WITHIN REACH.
--- NOTE | 2019-09-16 07:00 | NUR ---
MEDICAL TEAM ROUNDING, PT STATES HE DOES NOT FEEL ANY BETTER AND REQUESTING TO STAY 1 MORE DAY.
--- NOTE | 2019-09-16 07:00 | NUR ---
SHIFT CHANGE REPORT, PT AWAKE ALERT AND ORIENTED SITTING UP IN BED, O2 @ 2L VIA NC IN PLACE, TELE MONITOR IN PLACE, HUITRON CATHETER IN PLACE IN YELLOW CLOUDY URINE, LEFT ARM SWOLEN, WEEPING AND ELEVATED ON PILLOW, NEEDS ADDRESSED, CALL MCNALLY IN REACH.
[2019-09-16 07:25] VITALS: BP 111/64
[2019-09-16 11:43] VITALS: BP 99/55
--- NOTE | 2019-09-16 12:49 | NUR ---
Vacomycin ordered for pharmacy to dose. PT is a 64 year old male. Pt is diagnosed with pneumonia. Abx: Pt is also receiving cefepime IV 2gm Q12H Pt was started on vancomycin 1,000 mg IV Q12H with a target trough of 15-20mcg/mL. Trough on 09/15/19: 13mcg/mL Change Vancomycin dose to 1,250 mg IV Q12H. Draw trough 30 minutes prior to 4th dose on 09/17/19 at 2230. Pharmacy will continue to follow.
[2019-09-16 15:30] VITALS: BP 114/63
[2019-09-16] MEDS ORDERED: LEVAQUIN750 M1 PO (15:38)
--- NOTE | 2019-09-16 16:00 | NUR ---
ASSISTED WITH TRANSFER TO RECLINER, ALL NEEDS ADDRESSED, CALL MCNALLY IN REACH
[2019-09-16] MEDS ORDERED: PREDNISONE10 MG PO (16:44)
--- NOTE | 2019-09-16 18:48 | NUR ---
Discharge instructions given. Patient verbalizes understanding of same. Discharged in poor condition via Wheelchair to [facility] with *Other. All belongings sent with pt.
== END 2019-09-16 18:41 | disposition home or self-care (01) | DRG 190 ==
LOC: ED 11:04 → ED-I 13:10 → ED 13:48 → ED-I 13:49 → MS2 14:18
PROVIDERS: Family Medicine; Nurse Practitioner Family; ADMIT Internal Medicine; ATTEND Internal Medicine
DX: J44.1 Chronic obstructive pulmonary disease with (acute) exacerbation (principal); J18.9 Pneumonia, unspecified organism; J96.10 Chronic respiratory failure, unspecified whether with hypoxia or hypercapnia; N39.0 Urinary tract infection, site not specified; I69.954 Hemiplegia and hemiparesis following unspecified cerebrovascular disease affecting left non-dominant side; I48.20 Chronic atrial fibrillation, unspecified; J44.0 Chronic obstructive pulmonary disease with (acute) lower respiratory infection; I10 Essential (primary) hypertension; I25.10 Atherosclerotic heart disease of native coronary artery without angina pectoris; G89.4 Chronic pain syndrome; I73.9 Peripheral vascular disease, unspecified; E78.5 Hyperlipidemia, unspecified; I69.998 Other sequelae following unspecified cerebrovascular disease; M62.81 Muscle weakness (generalized); B96.4 Proteus (mirabilis) (morganii) as the cause of diseases classified elsewhere; Z85.118 Personal history of other malignant neoplasm of bronchus and lung; Z95.1 Presence of aortocoronary bypass graft; Z99.81 Dependence on supplemental oxygen; Z96.89 Presence of other specified functional implants; Z79.899 Other long term (current) drug therapy; Z20.828 Contact with and (suspected) exposure to other viral communicable diseases
CPT/HCPCS: J0692; J3370

== ENCOUNTER 2019-12-15 11:21 | Inpatient (IN) | payer MEDICARE ==
[~2019-12-15] VITALS: Ht 157.5 cm; Wt 72.0 kg
[~2019-12-15 11:21] MED LIST changes: +CVS OMEPRAZOLE20 MG PO; +FLAVOXATE100 MG PO; +GABAPENTIN100 MG PO; +LEVAQUIN750 M1 PO; +MONTELUKAST SOD10 MG PO; +SERTRALINE50 MG PO; +VISINE DRY EYE OU
--- NOTE | 2019-12-15 11:24 | NUR ---
PATIENT TO ROOM VIA EMS AND PHYSICIAN NOTIFIED OF PATIENT STATUS
--- NOTE | 2019-12-15 11:30 | NUR ---
PT SPO2 68% ON ROOM AIR. HOB ELEVATED AND PT PLACED ON 4L, NC.
--- NOTE | 2019-12-15 11:44 | NUR ---
PATIENT UNABLE TO VERIFY OF MEDICATION ADMINSTRATION MAR THAT WAS SENT DID NOT HAVE CURRENTS DATES OF MEDS TAKEN PHARMACY CONSULT PLACED
[2019-12-15 11:46] LABS: GFR > 60 ML/MIN (>=60 (CALC)); GFR FOR AFR.AMER. > 60 ML/MIN (>=60 (CALC))
[2019-12-15 11:56] LABS: HEMATOCRIT 35.5 % (39.0-50.0); HEMOGLOBIN 10.1 g/dl (14.0-18.0); IMMATURE GRANULOCYTES 0.5 % (0.0-5.0); MEAN CELL VOLUME 76.2 fL CALC (80.0-100.0); MEAN CORPUSCULAR HGB 21.7 pG CALC (26.0-32.0); MEAN CORPUSCULAR HGB CONC 28.5 g/dL CAL (32.0-36.0); NEUT# 13.69 thou/uL (1.82-7.42); RED BLOOD COUNT 4.66 mill/uL (4.70-6.10); RED CELL DISTRI WIDTH 17.4 % (11.5-15.5)
--- NOTE | 2019-12-15 12:00 | NUR ---
PATIENT SPO2 NOW 98% ON 4L NC AT THIS TIME. RESP EVEN AND UNLABORED.
[2019-12-15 12:01] LABS: ALKALINE PHOSPHATASE 86 u/l (38-126); ANION GAP 11 (6-22 (CALC)); BUN 15 mg/dL (8-23); BUN/CREATININE RATIO 18 (12-20 (CALC)); CARBON DIOXIDE 28 mmol/l (22-30); CHLORIDE 103 mmol/l (95-108); CREATININE 0.8 mg/dL (0.7-1.3); GFR > 60 ML/MIN (>=60 (CALC)); GFR FOR AFR.AMER. > 60 ML/MIN (>=60 (CALC)); LIPASE 39 u/l (23-300); MAGNESIUM 1.6 mg/dL (1.6-2.3); POTASSIUM 4.3 mmol/l (3.5-5.1); SGOT/AST 25 u/l (19-48); SODIUM 137 mmol/l (137-146); TOTAL PROTEIN 7.5 g/dL (6.3-8.2)
[2019-12-15 12:03] LABS: C-REACTIVE PROTEIN 4.5 mg/dL (0-0.9)
[2019-12-15 12:05] LABS: BILIRUBIN, TOTAL 0.6 mg/dL (0.0-1.4)
[2019-12-15 12:14] LABS: INTERNATIONAL NORMALIZED RATIO 1.2 RATIO (0.7-1.3); PROTHROMBIN TIME 11.5 SECONDS (9.0-12.5)
--- NOTE | 2019-12-15 12:54 | NUR ---
PT RESTING ON STRETCHER WITH HOB ELEVATED. PT ADVISED WAITING ON RESULTS BEFORE ABLE TO EAT. PT VERBALIZED UNDERSTANDING.
--- NOTE | 2019-12-15 13:00 | NUR ---
RESTING ON STRETCHER WITH HOB ELEVATED. VOICES NO NEEDS AT THIS TIME. RESPS UNLABORED ON O2 VIA NC, SPO2 98%. CALL LIGHT WITHIN REACH. WILL CONTINUE TO MONITOR.
--- NOTE | 2019-12-15 14:17 | NUR ---
NURSE TO NURSE REPORT CALLED TO PAULETTE CANO
[2019-12-15 14:53] VITALS: BP 118/65
--- NOTE | 2019-12-15 14:53 | NUR ---
PT ARRIVED TO [facility] ROOM 283 IN STABLE CONDITION VIA STRETCHER ACCOMPAINED BY SHANON CASAS. ASSISTED PT SLIDING FROM STRETCHER TO BED WITH LITTLE DIFFICULTY, FALL RISK BAND APPLIED. PT IS A/O X3 BUT VERY DROWSY.ASSESSMENT AND VITALS COMPLETED AT THIS TIME. BP 118/65, HR 97, O2 96% ON 4L NC. RESPIRATIONS ARE EVEN AND UNLABORED WITH NO SIGNS OF DISTRESS. LUNG SOUNDS ARE RONCHI, PT DOES COMPLAIN OF SOME SOB.BED ELEVATED AND OXYGEN APPLIED. HEART RHYTHM IS NORMAL WITH TELE IN PLACE. RADIAL PULSES ARE STRONG WITH NORMAL CAPILLARY REFILL. PEDAL PULSES ARE WEAK WITH NORMAL CAPILLARY REFILL. #20G EMS RAC FLUSHED, SITE APPEARS HEALTHY AND PATENT. #20 LW FLUSHED, SITE APPEARS HEALTHY AND PATENT. BOWEL SOUNDS ARE HYPOACTIVE, LAST REPORTED BM 12/15/19. SKIN IS WARM AND DRY WITH NO EDEMA. SKIN APPEARS TO BED BRUISED AND SLIGHTLY RED. PT DENIES OF ANY PAIN OR DISCOMFORTS AT THIS TIME.PT INFORMED WRITTER THAT HE PRESENTED TO ER FOR SOB THAT HE HAS HAD FOR THE PAST 2 WEEKS AND FOR FEELING "WEAK". PT UNABLE TO GIVE WRITTER MUCH INFORMATION. CONTACTED FOR MORE INFORMATION. PT INFORMED WRITTER THAT HE IS FROM [facility] AND HE HAS ALLERGIES TO PENICILLINS, ALLERGY BAND APPLIED. ALSO ASSISTED WITH PT HEALTH HISTORY. ALL SAFETY AND ISOLATION PRECAUTIONS IN PLACE WITH CALL LIGHT IN REACH. WILL CONTINUE TO MONITOR.
--- NOTE | 2019-12-15 15:00 | NUR ---
TO ROOM 283 VIA STRETCHER. BEDSIDE REPORT GIVEN TO HERBER SALDAÑA.
--- NOTE | 2019-12-15 16:00 | NUR ---
PT SLEEPING IN SEMI FOWLERS POSITION . RESPIRATIONS ARE EVEN AND UNLABORED WITH NO SIGNS OF DISTRESS. NO SIGNS OF ANY PAIN OR DISCOMFORTS.ALL SAFETY PRECAUTIONS IN PLACE WITH CALL LIGHT IN REACH. WILL CONTINUE TO MONITOR.
[2019-12-15 16:58] VITALS: BP 136/67
[2019-12-15 18:08] LABS: URINE BILIRUBIN - DIPSTICK NEGATIVE (NEGATIVE); URINE BLOOD DIPSTICK NEGATIVE (NEGATIVE); URINE COLOR YELLOW; URINE GLUCOSE - DIPSTICK NEGATIVE (NEGATIVE); URINE KETONE NEGATIVE (NEGATIVE); URINE LEUK ESTERASE NEGATIVE (NEGATIVE); URINE NITRITE - DIPSTICK NEGATIVE (Negative); URINE PH 7.5 (4.5-8.0); URINE PROTEIN - DIPSTICK NEGATIVE (NEG-TRACE)
[2019-12-15 18:36] VITALS: BP 110/70
[2019-12-15 19:08] VITALS: BP 104/61
--- NOTE | 2019-12-15 21:10 | NUR ---
UPON ENTERING ROOM PT FOUND TO BE LAYING IN BED, APPEARS TO BE RESTING COMFORTABLY. PHYSICAL ASSESMENT COMPLETE. PT CURRENTLY DENIES PAIN OR DISCOMFORT. SCHEDULED MEDS ADMINISTERED, SEE E-MAR. FRESH WATER PROVIDED AND PATIENT PULLED UP IN BED, REPOSITIONED, AND GIVEN EXTRA PILLOW FOR COMFORT. LUE ELEVATED ON PILLOW. PT DENIES FURTHER NEEDS AT THIS TIME. PLAN OF CARE REVIEWED, PT DENIES QUESTIONS, VERBALIZES UNDERSTANDING. ALL ITEMS MOVED TO RIGHT SIDE AND ARE WITHIN REACH, BED LOCKED IN LOW POSITION W/ BEDRAILS UP X2. CALL MCNALLY WITHIN REACH, AGREES TO CALL PRN.
[2019-12-16] VITALS: BP 117/64
--- NOTE | 2019-12-16 01:00 | NUR ---
PT APPEARS TO BE SLEEPING COMFORTABLY, NO APPARENT DISTRESS, RESPIRATIONS REGULAR AND UNLABORED. ITEMS REMAIN WITHIN REACH, BED REMAINS LOCKED IN LOW POSITION W/ BEDRAILS UP X2. CALL MCNALLY REMAINS WITHIN REACH.
--- NOTE | 2019-12-16 03:50 | NUR ---
PT REPORTS HE NEEDS TO HAVE BM. OFFERED PT BEDPAN. PT DECLINES, STATES HE NEEDS TO GET UP TO BATHROOM. ASSISTED PT TO BSC W/ ASSIST OF Dante BARAKAT CNA. PT HAD DIFFICULTY GETTING UP WITH +2 ASSIST. CONSIDER PT EVAL. PT HAD SMALL SOFT BM. CLEANED AND ASSISTED BACK TO BED.
[2019-12-16 04:00] VITALS: BP 115/66
--- NOTE | 2019-12-16 04:30 | NUR ---
AM LABS DRAWN.
[2019-12-16 04:58] LABS: HEMATOCRIT 34.3 % (39.0-50.0); HEMOGLOBIN 9.7 g/dl (14.0-18.0); IMMATURE GRANULOCYTES 0.8 % (0.0-5.0); MEAN CORPUSCULAR HGB CONC 28.3 g/dL CAL (32.0-36.0); NEUT# 22.89 thou/uL (1.82-7.42); RED BLOOD COUNT 4.4 mill/uL (4.70-6.10); RED CELL DISTRI WIDTH 17.5 % (11.5-15.5)
[2019-12-16 05:24] LABS: ALBUMIN 3.8 g/dL (3.2-5.0); ALKALINE PHOSPHATASE 74 u/l (38-126); ANION GAP 16 (6-22 (CALC)); BILIRUBIN, TOTAL 0.4 mg/dL (0.0-1.4); BUN 14 mg/dL (8-23); BUN/CREATININE RATIO 18 (12-20 (CALC)); CARBON DIOXIDE 23 mmol/l (22-30); CHLORIDE 104 mmol/l (95-108); CREATININE 0.8 mg/dL (0.7-1.3); GFR > 60 ML/MIN (>=60 (CALC)); GFR FOR AFR.AMER. > 60 ML/MIN (>=60 (CALC)); POTASSIUM 3.8 mmol/l (3.5-5.1); SGOT/AST 28 u/l (19-48); SODIUM 139 mmol/l (137-146); TOTAL PROTEIN 7.4 g/dL (6.3-8.2)
[2019-12-16 05:39] LABS: C-REACTIVE PROTEIN 13.9 mg/dL (0-0.9)
--- NOTE | 2019-12-16 06:22 | NUR ---
ASSESMENT UNCHANGED FROM BEGINING OF SHIFT BASELINE ASSESMENT. AM HEMODYNAMICS WNL/ STABLE. PT AFEBRILE. PT DENIES NEEDS AT THIS TIME. ITEMS REMAIN WITHIN REACH, BED REMAINS LOCKED IN LOW POSITION W/ BEDRAILS UP X2. CALL MCNALLY REMAINS WITHIN REACH, AGREES TO CALL PRN.
--- NOTE | 2019-12-16 08:42 | NUR ---
RECIEVED REPORT FROM SHANON FLETCHER. PT SITTING IN HIGH FOLWERS POSITION UPON ENTERING ROOM. INTRODUCED SELF TO PT AND DISCUSSED POC. PT IS A/OX3 . ASSESSMENT AND VITALS COMPLETED AT THIS TIME. BP 118/79, HR 75, O295% ON 2L NC. RESPIRATIONS ARE EVEN AND UNLABORED WITH NO SIGNS OF DISTRESS. LUNG SOUNDS ARE RONCHI, PT DENIES ANY SOB AT THIS TIME. HEART RHYTHM IS NORMAL WITH TELE IN PLACE. BOWEL SOUNDS ARE ACTIVE IN ALL QUADRANTS WITH NO TENDERNESS. LAST REPORTED BM 12/15/19 RADIAL PULSES ARE STRONG WITH NO CAPILLARY REFILL. PEDAL PULSES ARE WEAK WITH NORMAL CAPILLARY REFILL. #20G IN RAC EMS FLUSHED, SITE APPEARS HEALTHY AND PATENT. #20 IN LW RUNNING WITH FLUIDS, SITE APPEARS HEALTHY AND PATENT.PT DOES PRESENT WITH A "PUMP THAT HELPS WITH TREMORS" ON LEFT FLANK AREA. UNABLE TO SEE PUMP BUT WRITTER IS ABLE TO PALPATE. PT DENIES ANY PAINS OR DISCOMFORTS AT THIS TIME. ALL SAFTEY AND ISOLATION PRECAUTIONS REMAIN IN PLACE WITH CALL LIGHT IN REACH.WILL CONTINUE TO MONITOR.
[2019-12-16 10:55] VITALS: BP 122/73
--- NOTE | 2019-12-16 12:30 | NUR ---
DR. KHAN AT BEDSIDE DISCUSSING POC AT THIS TIME
--- NOTE | 2019-12-16 12:52 | NUR ---
PT COMPLAINS OF 8/10 HEADACHE, TYLENOL ADMINISTERED AT THIS TIME. RESPIRATIONS ARE EVEN AND UNLABORED WITH NO SIGNS OF DISTRESS. ALL SAFETY PRECAUTIONS REMAIN IN PLACE WITH CALL LIGHT IN REACH. WILL CONTINUE TO MONITOR
--- NOTE | 2019-12-16 13:56 | NUR ---
S: ELKE CORBIN is a 64 M who presents with pneumonia. He has a history of coronary artery disease, memory impairment, lung cancer, peripheral artery disease, benign prostatic hypertrophy, hyperlipidemia, hypertension, chronic obstructive pulmonary disease, and history of substance abuse. All medications in patient's chart were reviewed. O: VS: BP 122/73 mmHg, P 77 bpm, RR 18 breaths/min, T 97.9 F W 71.781 kg, HT 157.48 cm, Scr= 0.8 mg/dL, CrCl= 62 ml/min A: Blood culture is pending. P: Patient is on zosyn 3.375g IV Q6H. Vancomycin ordered for pharmacy to dose. Start Vancomycin 750mg IV Q12H. Vancomycin trough is drawn before the 4th dose on 12/17/20192029. Vancomycin goal trough is between 15-20 mcg/ml. Pharmacy will follow and or advise on antibiotics use as needed.
[2019-12-16 15:26] VITALS: BP 119/65
--- NOTE | 2019-12-16 16:14 | NUR ---
PT RESTING IN SEMI FOWLERS POSITION WATCHING TV. RESPIRATIONS ARE EVEN AND UNLABORED WITH NO SIGNS OF DISTRESS. PT DENIES OF ANY PAIN OR DISCOMFORTS AT THIS TIME. ALL SAFTEY PRECAUTIONS IN PLACE WITH CALL LIGHT IN REACH.WILL CONTINUE TO MONITOR.
[2019-12-16 18:55] VITALS: BP 111/61
--- NOTE | 2019-12-16 21:05 | NUR ---
PT LAYING IN BED RESTING, NO APPARENT DISTRESS, RESPIRATIONS REG & UNLABORED. PHYSICAL ASSESMENT COMPLETE. PT CURRENTLY DENIES PAIN OR DISCOMFORT. SCHEDULED MEDS ADMINISTERED, SEE E-MAR. ASSISTED PT IN REPOSITIONING FOR COMFORT. PT DENIES FURTHER NEEDS AT THIS TIME. PLAN OF CARE REVIEWED, PT DENIES QUESTIONS, VERBALIZES UNDERSTANDING. ITEMS WITHIN REACH, BED LOCKED IN LOW POSITION W/ BEDRAILS UP X2. CALL MCNALLY WITHIN REACH, AGREES TO CALL PRN.
[2019-12-16 23:38] VITALS: BP 126/72
[2019-12-17 05:18] VITALS: BP 143/72
[2019-12-17 05:42] LABS: HEMATOCRIT 28.8 % (39.0-50.0); HEMOGLOBIN 8.2 g/dl (14.0-18.0); IMMATURE GRANULOCYTES 0.5 % (0.0-5.0); MEAN CELL VOLUME 77.2 fL CALC (80.0-100.0); MEAN CORPUSCULAR HGB CONC 28.5 g/dL CAL (32.0-36.0); NEUT# 14.91 thou/uL (1.82-7.42); RED BLOOD COUNT 3.73 mill/uL (4.70-6.10); RED CELL DISTRI WIDTH 17.2 % (11.5-15.5)
[2019-12-17 06:03] LABS: ALBUMIN 3.1 g/dL (3.2-5.0); ALKALINE PHOSPHATASE 60 u/l (38-126); ANION GAP 7 (6-22 (CALC)); BILIRUBIN, TOTAL 0.3 mg/dL (0.0-1.4); BUN 16 mg/dL (8-23); BUN/CREATININE RATIO 22 (12-20 (CALC)); CHLORIDE 105 mmol/l (95-108); CREATININE 0.7 mg/dL (0.7-1.3); GFR > 60 ML/MIN (>=60 (CALC)); GFR FOR AFR.AMER. > 60 ML/MIN (>=60 (CALC)); POTASSIUM 4.2 mmol/l (3.5-5.1); SGOT/AST 21 u/l (19-48); SODIUM 137 mmol/l (137-146); TOTAL PROTEIN 6.5 g/dL (6.3-8.2)
[2019-12-17 06:04] LABS: CARBON DIOXIDE 29 mmol/l (22-30)
--- NOTE | 2019-12-17 07:17 | NUR ---
RECD CALL FROM TYREE IN MICRO, PRELIM BLOOD CX SHOWS GRAM POSITIVE COCCI IN 1/4 SETS. PT IS RECEIVING VANCOMYCIN 750MG IV BID. NO ADDITIONAL ABX NEEDED AT THIS TIME
[2019-12-17 09:26] VITALS: BP 141/67
--- NOTE | 2019-12-17 09:26 | NUR ---
RECIEVED REPORT FROM SHANON FLETCHER. PT SITTING IN HIGH FOWLERS EATING BREAKFAST UPON ENTERING ROOM. INTRODUCED SELF TO PT AND DISCUSSED POC. ASSESSMENT AND VITALS COMPLETED AT THIS TIME. BP 141/67, HR 78, O2 94% ON 2L NC. RESPIRATIONS ARE EVEN AND UNLABORED WITH NO SIGNS OF DISTRESS. LUNG SOUNDS ARE CLEAR. HEART RHYTHM IS NORMAL WITH TELE IN PLACE. BOWEL SPOUNDS ARE ACTIVE IN ALL QUADRANTS. RADIAL AND PEDAL PULSES ARE STRONG WITH NORMAL CAPILLARY REFILL. PT DOES PRESENT WITH LEFT SIDED WEAKNESS. IV FLUIDS RUNNING AT 10 ML ORDERED, SITE APPEARS HEALTHY AND PATENT. HUITRON CATHATER IN PLACE. URINE IS YELLOW AND CLEAR. PT DENIES ANY PAIN OR DISCOMFORTS AT THIS TIME. ALL SAFTEY PRECAUTIONS IN PLACE WITH CALL LIGHT IN REACH. WILL CONTINUE TO MONITOR
[2019-12-17 10:30] VITALS: BP 149/78
--- NOTE | 2019-12-17 10:48 | NUR ---
PT TRANSFERED FROM ROOM 283 TO ROOM 260 DUE TO PRC BEING NEGATIVE. ALL BELONGINGS TRANSPORTED WITH PT. RESPIRATIONS ARE EVEN AND UNLABORED. PT DENIES OF ANY NEEDS AT THIS ITME. ALL SAFETY PRECAUTIONS ARE IN PLACE WITH CALL LIGHT IN REACH. WILL CONTINUE TO MONITOR.
--- NOTE | 2019-12-17 12:58 | NUR ---
PT SITTING IN HIGH FOWLERS POSITION WATCHING TV AND EATING LUNCH. RESPIRATIONS ARE EVEN AND UNLABORED WITH NO SIGNS OF DISTRESS.P COMPLAINS OF COUGH, ROBITUSSIN TO BE ADMINISTERED. PT DENIES OF ANY PAIN OR DSICOMFORTS. ALL SAFTEY PRECAUTIONS IN PLACE WITH CALL LIGHT IN REACH. WILL CONTINUE TO MONITOR
--- NOTE | 2019-12-17 13:18 | NUR ---
DR HAZEL AT BEDSIDE DISCUSSING POC
[2019-12-17 14:45] VITALS: BP 142/78
--- NOTE | 2019-12-17 16:38 | NUR ---
PT RESTING IN HIGH FOWLERS POSITION WATCHING TV. RESPIRATIONS ARE EVEN AND UNLABORED WITH NO SIGNS OF DISTRESS. PT DENIES ANY PAIN OR DISCOMFORTS AT THIS TIME.ALL SAFETY PRECAUTIONS IN PLACE WITH CALL LIGHT IN REACH. WILL CONTINUE TO MONITOR
--- NOTE | 2019-12-17 18:42 | NUR ---
PT COMPLAINS OF A 9/10 HEAD ACHE AT THIS TIME. RESPIRATIONS ARE EVEN AND UNLABORED WITH NO SIGNS OF DISTRESS, ALL SFAETY PRECAUTIONS IN PLACE WITH CALL LIGHT IN REACH. WILL CONTINUE TO MONITOR
[2019-12-17 19:20] VITALS: BP 166/86
--- NOTE | 2019-12-17 19:30 | NUR ---
SPOKE W/ PTS SPOUSE OVER PHONE, UPDATE ON PTS STATUS PROVIDED WITH PATIENTS PERMOSSION VERIFIED BY 4-DIGIT COMMUNICATION CODE PROVIDED TO PT.
--- NOTE | 2019-12-17 20:30 | NUR ---
METAL PATTERNMAKER AT BEDSIDE TO DRAW VANCO TROUGH.
--- NOTE | 2019-12-17 20:50 | NUR ---
PT LAYING IN BED RESTING, NO APPARENT DISTRESS, RESPIRATIONS REG & UNLABORED. PHYSICAL ASSESMENT COMPLETE. PT CURRENTLY DENIES PAIN OR DISCOMFORT, C/O PERSISTENT COUGH AND REQUEST PRN ANTITUSSIVE. PRN ROBITUSSIN ADMINISTERED AND SCHEDULED MEDS ADMINISTERED, SEE E-MAR. ASSISTED PT IN REPOSITIONING FOR COMFORT.FRESH ICE WATER PROVIDED. PT DENIES FURTHER NEEDS AT THIS TIME. PLAN OF CARE REVIEWED, PT DENIES QUESTIONS, VERBALIZES UNDERSTANDING. ITEMS ON RIGHT SIDE AND WITHIN REACH, BED LOCKED IN LOW POSITION W/ BEDRAILS UP X2. CALL MCNALLY WITHIN REACH, AGREES TO CALL PRN.
--- NOTE | 2019-12-17 22:32 | NUR ---
TROUGH RESULTS NOT AVAILABLE, CALLED LAB TO CHECK ON STATUS OF RESULTS. COLLEGE RECRUITER LIDIA STATES IT IS "STILL BEING RUN AND WILL BE A FEW MORE MINUTES"
--- NOTE | 2019-12-17 22:43 | NUR ---
VANCO TROUGH RESULTED. VANCO ADMINISTERED, SEE E-MAR.
[2019-12-17 23:43] VITALS: BP 175/91
--- NOTE | 2019-12-18 03:34 | NUR ---
300 ML CLEAR YELLOW URINE EMPTIED FROM URINAL, PT DENIES FURTHER NEEDS. CALL MCNALLY REMAINS WITHIN REACH. AGREES TO CALL PRN.
--- NOTE | 2019-12-18 03:37 | NUR ---
1500 ML CLEAR YELLOW URINE EMPTIED FROM PT'S HUITRON CATHETER. PT DENIES FURTHER NEEDS AT THIS TIME. CALL MCNALLY REMAINS WITHIN REACH, AGREES TO CALL PRN.
[2019-12-18 04:28] VITALS: BP 168/92
[2019-12-18 05:17] LABS: HEMOGLOBIN 9.9 g/dl (14.0-18.0); IMMATURE GRANULOCYTES 1.1 % (0.0-5.0); MEAN CORPUSCULAR HGB 21.8 pG CALC (26.0-32.0); NEUT# 14.53 thou/uL (1.82-7.42); RED BLOOD COUNT 4.54 mill/uL (4.70-6.10); RED CELL DISTRI WIDTH 17.4 % (11.5-15.5)
[2019-12-18 05:19] LABS: HEMATOCRIT 35.4 % (39.0-50.0)
[2019-12-18 05:37] LABS: ANION GAP 14 (6-22 (CALC)); BUN 16 mg/dL (8-23); BUN/CREATININE RATIO 20 (12-20 (CALC)); CARBON DIOXIDE 24 mmol/l (22-30); CHLORIDE 105 mmol/l (95-108); CREATININE 0.8 mg/dL (0.7-1.3); GFR > 60 ML/MIN (>=60 (CALC)); GFR FOR AFR.AMER. > 60 ML/MIN (>=60 (CALC)); POTASSIUM 4.5 mmol/l (3.5-5.1); SODIUM 139 mmol/l (137-146)
[2019-12-18 07:40] VITALS: BP 157/80
--- NOTE | 2019-12-18 07:40 | NUR ---
ASSESSMENT IS COMPLETED: IV SITE IS FREE FROM REDNESS OR EDEMA. HR IS REG,PULSES ARE STRONG X4,ABD IS SOFT WITH ACTIVE BS. HUITRON DRAINING YELLOW URINE. TELE MONITOR IN PLACE.
--- NOTE | 2019-12-18 09:02 | NUR ---
PT STATES FEELING ANIOUS. WOB INCREASED. RT ADMIN NEB TX. PT WITH STRONG PRODUCTIVE COUGH. RT REPOSTIONED PT PER PT REQUEST. VSS.
[2019-12-18 10:30] VITALS: BP 138/89
--- NOTE | 2019-12-18 12:00 | NUR ---
PT IS RELAXING IN BED WITH NO DISTRESS NOTED. IV SITE IS FREE FROM REDNESS OR EDEMA.
--- NOTE | 2019-12-18 12:44 | NUR ---
PT IS RECEIVING VANCOMYCIN FOR PNEUMONIA. PREVIOUS DOSE WAS VANCOMYCIN 750MG IV Q12H. GOAL TROUGH 15-20. TROUGH WAS 9 ON 12/16 @ 2029. INCREASE VANCOMYCIN TO 1250MG IV Q12H. DRAW TROUGH ON 12/17 @ 2029. GOAL TROUGH = 15-20. PHARMACY WILL CONTINUE TO OFLLOW.
[2019-12-18 15:00] VITALS: BP 137/74
--- NOTE | 2019-12-18 16:00 | NUR ---
PT IS RELAXING IN BED WITH NO DISTRESS NOTED. IV SITE IS FREE FROM REDNESS OR EDEMA. PT HAD A MODERATE STOOL INCONTINENCE. CONTINUE TO OSBERVE AND MONITOR.
--- NOTE | 2019-12-18 19:00 | NUR ---
REPORT RECEIVED FROM Sharmaine SWANSON LPN, CARE OF PT ASSUMED AT THIS TIME.
--- NOTE | 2019-12-18 19:01 | NUR ---
SPOKE WITH HIS SISTER RE: PT STATUS. SHE INFORMED THAT "THEIR MOTHER DUE TO BAD ASTHMA AND STOPPED BREATHING" THAT IS WHY HE PANICS EASILY.
[2019-12-18 19:30] VITALS: BP 135/81
--- NOTE | 2019-12-18 21:00 | NUR ---
PT LAYING IN BED RESTING, NO APPARENT DISTRESS, RESPIRATIONS REG & UNLABORED. PHYSICAL ASSESMENT COMPLETE. PT CURRENTLY DENIES PAIN OR DISCOMFORT, C/O PERSISTENT COUGH AND REQUEST PRN ANTITUSSIVE. PRN ROBITUSSIN ADMINISTERED AND SCHEDULED MEDS ADMINISTERED, SEE E-MAR. ASSISTED PT IN REPOSITIONING FOR COMFORT.PT DENIES NEEDS AT THIS TIME. PLAN OF CARE REVIEWED, PT DENIES QUESTIONS, VERBALIZES UNDERSTANDING. ITEMS ON RIGHT SIDE AND WITHIN REACH, BED LOCKED IN LOW POSITION W/ BEDRAILS UP X2. CALL MCNALLY WITHIN REACH, AGREES TO CALL PRN.
[2019-12-19] VITALS (7 sets, daily range): BP systolic 126–149; BP diastolic 68–97
--- NOTE | 2019-12-19 01:48 | NUR ---
PATIENT INCONTINENT OF MODERATE AMOUNT SOFT, UNFORMED STOOL. ARDEN-CARE, PARTIAL BED BATH AND PARTIAL LINEN AND GOWN CHANGE COMPLETED W/ ASSIST OF Adenike STEELE CNA. BARRIER CREAM APPLIED.
--- NOTE | 2019-12-19 07:45 | NUR ---
ASSESSMENT IS COMPLTED: IV SITE IS FREE FROM REDNESS OR EDEMA. HR IS REG,PULSES ARE STRONG X4, ABD IS SOFT WITH ACTIVE BS. LEFT SIDE IS WEAKER THAN THE RIGHT SIDE. HUITRON DRAINING YELLOW URINE. TELE MONITOR IN PLACE.
--- NOTE | 2019-12-19 10:05 | NUR ---
SPOKE WITH STAFF AT THE [facility] AND INFORMED THAT PT BEING DISCHARGED TODAY. INQUIRED ABOUT HIS SHOES, PHONE AND WALKER. WAS INFORMED THAT THEY HAD 1 STAFF TODAY UNABLE TO BRING BELONGINGS AND THAT PT WOULD HAVE TO BE TRANSPORTED VIA AMBULANCE. BACK TO THE FACILITY. INFORMED LARISSA IRVING , AND WILL WAIT FOR CASE MANAGEMENT.
[2019-12-19] MEDS ORDERED: Levaquin PO ×2 (10:55)
--- NOTE | 2019-12-19 12:00 | NUR ---
PT IS RELAXING IN THE CHAIR. NO DISTRESS NOTED. IV SITE IS FREE FROM REDNESS OR EDEMA. CONTINUE TO OSBERVE AND MONITOR.
--- NOTE | 2019-12-19 13:05 | NUR ---
IV SITE DISCONITNUED CATHETER INTACT. NO REDNESS OR EDEMA. SPOKE WITH LARISSA IRVING OK TO DISCONTINUE . PT ASSISTED BACK TO BED WITH 2 PERSON ASSIST. CONTINUE TO OSBERVE AND MONITOR.
--- NOTE | 2019-12-19 14:50 | NUR ---
SPOKE WITH FAMILY RE: PT GOING BACK TO [facility]. TODAY. APPRECIATED THE CARE THAT WAS GIVEN. INFORMED PT.
--- NOTE | 2019-12-19 15:47 | NUR ---
SPOKE WITH CASE MANAGEMENT RE: TRANSPORT BACK TO [facility].
--- NOTE | 2019-12-19 16:00 | NUR ---
PT IS RELAXING IN BED WITH NO DISTRESS NOTED. CONTINUE TO OBSERVE AND MONITOR.
--- NOTE | 2019-12-19 16:47 | NUR ---
SPOKE WITH DR PERRY AT 1607 RE: PT NOT ABLE TO BE SENT BACK TO [facility] DUE TO NO STAFF. CONTINUE TO KEEP THE IV OUT. AND NO ABT TONIGHT. ABLE TO ORDER KLONOPIN FOR HS TO BE GIVEN. SPOKE WITH RE: ORDER FOR HS. PT TAKES THIS BID.
--- NOTE | 2019-12-19 18:06 | NUR ---
SPOKE WITH HIS TO INFORM OF WHAT WAS GOING ON. TRANSFERRED THE CALL TO THE PORTABLE PHONE SO THE PT COULD SPEAK TO HER.
--- NOTE | 2019-12-19 19:00 | NUR ---
REPORT RECEIVED FROM Sharmaine SWANSON LPN, CARE OF PT ASSUMED AT THIS TIME.
--- NOTE | 2019-12-19 20:50 | NUR ---
PT LAYING IN BED RESTING, NO APPARENT DISTRESS, RESPIRATIONS REG & UNLABORED. PHYSICAL ASSESMENT COMPLETE. PT CURRENTLY DENIES PAIN OR DISCOMFORT, C/O PERSISTENT COUGH AND REQUEST PRN ANTITUSSIVE. PRN ROBITUSSIN ADMINISTERED AND SCHEDULED MEDS ADMINISTERED, SEE E-MAR. PT DENIES NEEDS AT THIS TIME. PLAN OF CARE REVIEWED, PT DENIES QUESTIONS, VERBALIZES UNDERSTANDING. ITEMS ON RIGHT SIDE AND WITHIN REACH, BED LOCKED IN LOW POSITION W/ BEDRAILS UP X2. CALL MCNALLY WITHIN REACH, AGREES TO CALL PRN.
[2019-12-20] VITALS (11 sets, daily range): BP systolic 95–144; BP diastolic 58–81
--- NOTE | 2019-12-20 07:30 | NUR ---
RECIEVED REPORT FROM JUSTINE CLAUDIO. PT RESTING IN SEMI FOWLERS POSITION WATCHING TV. RESPIRATIONS ARE EVEN AND UNLABROED WITH NO SIGNS OF DISTRESS. INTRODUCED SELF TO PT AND DISCUSSED POC. SAFTEY PRECAUTIONS ARE IN PLACE WITH CALL LIGTH IN REACH. WILL CONTINUE TO MONITOR
--- NOTE | 2019-12-20 07:40 | NUR ---
DR HAZEL AT BEDSIDE DISCUSSING POC
[2019-12-20] MEDS ORDERED: PREDNISONE10 MG PO ×2 (07:44)
--- NOTE | 2019-12-20 10:05 | NUR ---
REASSESSMENT OF PAIN AT THIS TIME. PT STATES PAIN IS A 8/10 AND TYLEONOL IS WORKING JUST A LITTLE. REPOSITIONED PT TO ASSIST WITH DISCOMFORTS.RESPIRATIONS ARE EVEN AND UNLABORED WITH NO SIGNS OF DISTRESS. ALL SAFETY PRECAUTIONS IN PLACE WITH CALL LIGHT IN REACH. WILL CONTINUE TO MONITOR.
--- NOTE | 2019-12-20 10:22 | NUR ---
ASSESSMENT AND VITALS COMPLETED AT THIS TIME.BP 139/79, HR 90, O2 92% ON 2L NC. RESPIRATIONS ARE EVEN AND UNLABORED WITH NO SIGNS OF DISTRESS. LUNG SOUNDS ARE CLEAR. HEART RHYTHM IS NORMAL WITH TELE IN PLACE. BOWEL SOUNDS ARE ACTIVE IN ALL QUADRANTS WITH NO TENDERNESS. LAST REPORTED BM 12/19/19. RADIAL AND PEDAL PULSES ARE STRONG WITH NORMAL CAPILLARY REFILL. PT DOES PRESENT WITH LEFT SIDED WEAKNESS FROM PREVIOUS STROKE. SKIN IS WARM AND DRY WITH NO BREAKDOWN. PT COMPLAINS OF 9/10 BODY ACHE, TYLENOL TO BE ADMINISTERED WITH MORNING MEDS.WRITTER INFORMED IN REPORT THAT PT WAS TO BE DISCHARGE YESTERDAY BACK TO [facility] BUT DUE TO STAFFING WAS ABLE TO. CASE MANAGEMENT WORKING ON DISCHARGING PT TODAY. PT DENIES ANY OTHER PAINS OR DISCOMFORTS AT THIS TIME. ALL SAFETY PRECAUTIONS IN PLACE WITH CALL LIGHT IN REACH. WILL CONITNUE TO MONITOR.
--- NOTE | 2019-12-20 12:24 | NUR ---
ER MONITORING INFORMED WRITTER THAT PT HAS EXPERIENCE A EPISODE OF TACHY. VITALS COMPLETED. BP 98/61, HR 181. STAYED WTIH PT FOR FEW MINUETS. HR LOWERED TO 130S. NOTIFIED OF EPISODE AND EKG ORDERED. ALL SAFETY PRECAUTIONS ARE IN PLACE WITH CALL LIGHT IN REACH WILL CONTINUE TO MONITOR
--- NOTE | 2019-12-20 12:30 | NUR ---
RESPIRATORY THERAPY AT BEDSIDE COMPLETING EKG
--- NOTE | 2019-12-20 13:15 | NUR ---
NEW #20G IN RAC STARTED TO ADMINISTER CARDIZEM IV . PT TOLERATED WELL. ALL SAFETY PRECAUTIONS ARE IN PLACE WITH CALL LIGHT IN REACH. WILL CONTINUE TO MONITOR
--- NOTE | 2019-12-20 14:00 | NUR ---
ER TELE MONITORING CALLED TO INFORM WRITTER THAT PT CONVERTED BACK TO SR 80S. RESPIRTAIONS ARE EVEN AND UNLABORED. PT REMAINS ASYMPTOMATIC. ALL SAFETY PRECAUTIONS ARE IN PLACE WITH CALL LIGTH IN REACH. WILL CONTINUE TO MONITOR
--- NOTE | 2019-12-20 14:07 | NUR ---
REASSESSMENT OF VITALS AT THIS TIME RESULTING IN BP 119/68, HR 84. RESPIRATIONS ARE EVEN AND UNLABORED WITH NO SIGNS OF DISTRESS. PT DENIES ANY PAIN OR DISCOMFORTS AT THIS TIME. ALL SAFETY PRECAUTIONS ARE IN PLACE WITH CALL LIGHT IN REACH. WILL CONTINUE TO MONITOR
--- NOTE | 2019-12-20 15:53 | NUR ---
PT RESTING IN SEMI FOWLERS POSITION UPON ENTERING ROOM. RESPIRATIONS ARE EVEN AND UNLABORED WITH NO SIGNS OF DISTRESS.PT DENIES OF ANY PAIN OR DISCOMFORTS AT THIS TIME. PT REQUEST FRESH ICE WATER, FRESH ICE WATER GIVEN TO PT AT THIS ITME. ALL SAFTEY PRECAUTIONS IN PLACE WITH CALL LIGTH IN REACH. WILL CONTINUE TO MONITOR.
--- NOTE | 2019-12-20 19:30 | NUR ---
PT. CLEANED OF A SCANT BM AND ARDEN CARE GIVEN AND NEW BRIEF APPLIED. ASSESSMENT COMPLETED. DENIES NEEDS AT THIS TIME. IV SITE PATENT AND SL. LUE FLACCID R/T HX CVA AND MINIMAL MOVEMENT OF LLE AND FOOT DROP OF LEFT FOOT. O2 INFUSING PER NC PER ORDER. INSTRUCTED TO CALL FOR ANY NEEDS. CALL LIGHT IS IN REACH. WILL CONTINUE TO MONITOR.
--- NOTE | 2019-12-20 22:06 | NUR ---
2205- SHAPER SETTER CALLED AND REPORTED PT'S HR WAS SUSTAINING 130'S AND HAS WENT UP TO 150 AND THAT TECH COULD NOT MAKE OUT RHYTHYM R/T INCREASED HR; RT IN AT BEDSIDE AND HR IS 126 AT THIS TIME. EKG OBTAINED @2205 AND HR IS BACK DOWN TO 89 AND EKG READS SR. PT. WAS ASYMPTOMATIC; CALLED ER AND VERIFIED PT'S RHYTHYM IS BACK TO SR AND RATE BACK DOWN TO 90'S. NOTIFIED SHAPER SETTER TO CALL THIS COUNTER INTELLIGENCE AGENT IF HR INCREASES AGAIN OR WITH RYTHYM CHANGE.
--- NOTE | 2019-12-20 23:15 | NUR ---
ER CALLED AGAIN AND REPORTING HR BACK UP INTO 160'S AND UNABLE TO MAKE OUT RHYTHYM. PT. IS ASYMPTOMATIC AND PT. WAS JUST GIVEN PO CARDIZEM PER ORDER. NOTIFIED DR. HAZEL OF THIS WELL EARLIER PT. HAVING SIMILAR ACTIVITY WITH EKG READING AND NEW ORDER RECEIVED TO OBTAIN ANOTHER EKG. RT NOTITIFIED AND PT. UPDATED WITH POC.
--- NOTE | 2019-12-20 23:35 | NUR ---
EKG SCANNED FOR MD TO ASSESS.
--- NOTE | 2019-12-21 00:30 | NUR ---
PT. IS RESTING IN BED WITH EYES CLOSED; RESP. EVEN AND UNLABORED. CALL LIGHT IS IN REACH. WILL CONITNUE TO MONITOR.
[2019-12-21 04:00] VITALS: BP 134/79
[2019-12-21 04:10] VITALS: BP 110/47
--- NOTE | 2019-12-21 04:53 | NUR ---
PT. C/O LUE AND LEFT FOOT PAIN WELL COUGH; MEDICATED WITH ORDERED PRN TYLENOL AND ROBITUSSIN; WILL REASSESS. PT. CLEANED OF A SCANT BM AND BRIEF REMOVED; ARDEN CARE PROVIDED AND NEW PAD APPLIED. FRESH WATER PROVIDED. CALL LIGHT IS IN REACH.
--- NOTE | 2019-12-21 07:36 | NUR ---
RECIEVED REPORT FROM SHANON SALDAÑA. PT RESTING IN HIGH FOLWERS POSITION WITH EYES CLOSED. RESPIRATIONS ARE EVEN AND UNLABORED WITH NO SIGNS OF DISTRESS. ALL SAFETY PRECAUTIONS REMIAN IN PLACE WITH CALL LIGHT IN REACH. WILL CONTINUE TO MONITOR.
[2019-12-21 08:57] VITALS: BP 130/74
--- NOTE | 2019-12-21 08:57 | NUR ---
ASSESSMENT AND VITASL COMPLETED AT THIS TIME.BP 130/74, HR 83, O2 96%ON 2L NC. RESPIRATIONS ARE EVEN AND UNLABORED WITH NO SIGNS OF DISTRESS. LUNG SOUNDS ARE RONCHI, PT COMPLAINS OF SOB WHEN COUGHING. ROBITUSSIN TO BE ADMINSITERED WITH MORNING MEDS. BOWEL SOUNDS ARE ACTIVE IN ALL QUADRANTS WITH NO TENDERNESS, LAST REPORTED BM 12/21/19.RADIAL PULSES ARE STRONG, PEDAL PULSES ARE WEAK, BOTH WITH NORMAL CAPILLARY REFILL. SKIN IS WARM AND DRY WTIH NO EDEMA OR BREAKDOWN. #20G IN RAC FLUSHED, SITE APPEARS HEALTHY AND PATENT. PT COMPLAINS OF 10/10 GERNALIZED BODY ACHE, TYLENOL TO BE ADMINISTERED WITH MORNING MEDS. HUITRON CATHATER IN PLACE, URINE IS YELLOW AND CLEAR. TUBING IS UNKINKED FLOWING WITH GRAVITY. PT DENIES ANY OTHER PAINS OR DSICOMFORTS AT THIS TIME. ALL SAFET PRECATIONS ARE IN PLACE WITH CALL LIGHT IN REACH. WILL CONTINUE TO MONITOR
--- NOTE | 2019-12-21 10:50 | NUR ---
ORDERED TO D/C TELE.PT GIVEN CARDIZEM THIS MORNING, NOTIFIED DANTE DOMINGUEZ ABOUT D/C TELE, ALBERTO CONFIRMED TO D/C TELE.
--- NOTE | 2019-12-21 10:50 | NUR ---
REASSESSMENT OF PAIN AT THIS TIME. PT RENKS PAIN A 8/10 PAIN AT THIS TIME. RESPIRATIONS ARE EVEN AND UNLABORED WITH NO SIGNS OF DISTRESS. ALL SAFTEY PRECAUTIONS ARE IN PLACE WITH CALL LIGHT IN REACH.
--- NOTE | 2019-12-21 12:05 | NUR ---
PT RESTING IN HIGH FOLWERS POSITION WITH EYES CLOSED. RESPIRATIONS ARE EVEN AND UNLABORED WITH NO SIGNS OF DISTRESS. NO SIGNS OF ANY PAIN AT THIS TIME. ALL SAFETY PRECAUTIONS REMAIN IN PLACE WITH CALL LIGHT IN REACH. WILL CONTINUE TO MONITOR
[2019-12-21] MEDS ORDERED: CARDIZEM CD120 MG PO (13:25)
--- NOTE | 2019-12-21 13:48 | NUR ---
SPOKE WITH CM ABOUT STATUS OF HALFWAY BEING ABLE TO ACCEPT PT BACK. WRITTER INFORMED THAT FACILITY WAS WAITING ON STATE FOR APPROVAL DUE TO ONE OF PANELS OF BIOFIRE RESULTING IN ABNORMAL.
--- NOTE | 2019-12-21 15:10 | NUR ---
PT COMPLAINS OF NAUSEA AT THIS TIME, ANRP NOTIFIED. RESPIRATIONS ARE EVEN AND UNLABORED WITH NO SIGNS OF DISTRESS. PT DENIES OF ANY PAIN OR OTHER DISCOMFORTS AT THIS TIME. ALL SAFETY PREVAUTIONS ARE IN APLCE WITH CALL LIGHT IN REACH. WILL CONTINUE TO MONITOR
--- NOTE | 2019-12-21 15:19 | NUR ---
ZOFRAN IV ADMINISTERED AT THIS TIME. RESPIRATIONS ARE EVEN AND UNLABORED WITH NO SIGNS OF DSITRESS. PT DENIES ANY OTHER DSICOMFORTS AT THIS TIME. ALL SAFETY PERCAUTIONS ARE IN PLACE WITH CALL LIGHT IN REACH. WILL CONTINUE TO MONITOR
[2019-12-21 15:53] VITALS: BP 93/56
[2019-12-21 16:00] VITALS: BP 97/58
--- NOTE | 2019-12-21 16:00 | NUR ---
PT RESTING IN HIGH FOWLERS POSITION UPON ENTERING ROOM. PT INFORMS WRITTER THAT HE IS STILL HAS NAUSEA AFTER ZOFRAN ADMINISTERED.PT STATES "HE JUST NEEDS TO STAND UP AND VOMIT". WRITTER INFORMED PT THAT GETTING OUT OF BED WAS NOT A GOOD IDEA DUE TO PT BEING VERY WEAK AND UNABLE TO STAND, PT VERBALIZED UNDERSTANDING. MARTHA PRIDERP NOTIFIED OF PT COMPLAINTS. PT RESPIRATIONS ARE EVEN AND UNLABORED AT THIS TIME.ALL SAFETY PRECAUTIONS ARE IN PLACE WITH CALL LIGHT IN REACH. WILL CONTINUE TO MONITOR.
--- NOTE | 2019-12-21 16:30 | NUR ---
PHENERGAN ADMINSITERED FOR NAUSEA AT THIS TIME. PT INFORMS WRITTER THAT HE NEEDS TO "STAND UP AND VOMIT". WRITTER INFORMS PT THAT STANDING UP OUT OF BED IS NOT A SAFTEY IDEA DUE TO PT BEING WEAK AND DIZZY. PT VERABLIZED UNDERSTANDING. PT HAS NOT YET TO VOMIT. PT RESTING IN HIGH FOWLERS POSITION FOR ASPIRATIONS PRECAUTIONS WITH EMISIS BAG NEAR BY. ALL SAFTEY PRECAUTIONS ARE IN PLACE WITH CALL LIGHT IN REACH . WILL CONTINUE TO MONITOR
[2019-12-21 19:00] VITALS: BP 101/64
--- NOTE | 2019-12-21 19:30 | NUR ---
PT DROWSY, WAKES EASILY, FALLS BACK ASLEEP QUICKLY. PT RECEIVED PHENERGAN EARLIER, SEE E-MAR. PT DID NOT EAT DINNER. DINNER TRAY REMOVED PER PTS REQUEST.
--- NOTE | 2019-12-21 21:05 | NUR ---
PT LAYING IN BED RESTING, NO APPARENT DISTRESS, RESPIRATIONS REG & UNLABORED. PHYSICAL ASSESMENT COMPLETE. PT REPORTS BACK PAIN 5/10 AND PERSISTENT COUGH. PRN APAP AND PRN ROBITUSSIN GIVEN PER HIS REQUEST AND SCHEDULED MEDS ADMINISTERED, SEE E-MAR. PT DENIES ANY FURTHER NEEDS AT THIS TIME. PLAN OF CARE REVIEWED, PT DENIES QUESTIONS, VERBALIZES UNDERSTANDING. ITEMS WITHIN REACH, BED LOCKED IN LOW POSITION W/ BEDRAILS UP X2. CALL MCNALLY WITHIN REACH, AGREES TO CALL PRN.
[2019-12-22 04:00] VITALS: BP 94/55
--- NOTE | 2019-12-22 06:30 | NUR ---
PHYSICAL ASSESMENT UNCHANGED FROM BEGINING OF SHIFT BASELINE ASSESMENT. AM HEMODYNAMICS WNL/ STABLE. PT AFEBRILE. PT DROWSY BUT EASILY WOKEN. PT DENIES NEEDS AT THIS TIME. ITEMS REMAIN WITHIN REACH, BED REMAINS LOCKED IN LOW POSITION W/ BEDRAILS UP X2. CALL MCNALLY REMAINS WITHIN REACH, AGREES TO CALL PRN.
--- NOTE | 2019-12-22 07:30 | NUR ---
RECIEVED REPORT FROM SHANON FLETCHER. PT SLEEPING IN LOW FOWLERS POSITION WATCHING TV. RESPIRATIONS ARE EVEN AND UNLABORED WITH NO SIGNS OF DISTRESS. ALL SAFTEY PRECAUTIONS ARE IN PLACE WITH CALL LIGTH IN REACH. WILL CONTINUE TO MONITOR
[2019-12-22 09:36] VITALS: BP 107/65
--- NOTE | 2019-12-22 09:36 | NUR ---
ASSESSMENT AND VITALS COMPLETED AT THIS TIME. BP 107/65, HR 75, O2 95% ON 2L NC. RESPIRATIONS ARE EVEN AND UNLABORED WITH NO SIGNS OF DISTRESS. LUNG SOUNDS ARE CLEAR. HEART RHYTHM IS NORAL. BOWEL SOUNDS ARE ACTIVE IN ALL QUADRANTS WITH NO TENDERNESS. LAST REPORTED BM 12/21/19. RADIAL AND PEDAL PULSES ARE STRONG WITH NORMAL CAPILLARY REFILL. PT PRESENTS WITH LEFT SIDED WEAKNESS R/T PRIOR STROKE. #20G IN RAC FLUSHED, SITE APPEARS HEALTHY AND PATENT. PT COMPLAINS OF 9/10 GENERALIZED PAIN, TYLENOL TO BE ADMINSTERED. HUITRON CATHATER IS IN PLACE. YELLOW CLEAR URINE FLOWING WITH GRAVITY. TUBING IS UNKINKED. [T DENIES OF ANY OTHER PAINS OR DISCOMFORTS AT THIS TIME. ALL SAFETY PRECAUTIONS ARE IN PLACE WITH CALL LIGTH IN REACH. WILL CONTINUE TO MONITOR
[2019-12-22 11:20] VITALS: BP 106/48
[2019-12-22 12:15] VITALS: BP 106/48
--- NOTE | 2019-12-22 12:16 | NUR ---
REASSESSMENT OF PT PAIN AT THIS TIME. PT STATES HE NO LONGER HAS PAIN. RESPIRATIONS ARE EVEN AND UNLABORED. PLANNED FOR PT TO BE DISCHARGED BACK TO [facility] TODAY. SCHEDULED [employer] DRIVER TIME 1400. ALL SAFETY PRECAUTIONS ARE IN PLACE WITH CALL LIGHT IN REACH. WILL CONTINUE TO MONITOR
--- NOTE | 2019-12-22 12:57 | NUR ---
PT EDUCATED ON DISCHARGE INSTRUCTIONS AND NEW MEDICATIONS; LEVAQUIN, PRESNISONE, CARDIZEM. PT VERBALIZERD UNDERSTANDING. IV REMOVED WITH CATHATER INTACT. PT TOLERATED WELL. ALL SAFETY PRECAUTIONS ARE IN PLACE WITH CALL LIGTH IN REACH. WILL CONTINUE TO MONITOR
--- NOTE | 2019-12-22 13:47 | NUR ---
Discharge instructions given. Patient verbalizes understanding of same. Discharged in stable condition via Wheelchair to [facility] with staff. All belongings sent with pt. PT LEFT VIA WHEELCHAIR IN STABLE CONDITION WITH ALL BELONGINGS ACCOMPAINED BY [facility]
== END 2019-12-22 14:37 | disposition home or self-care (01) | DRG 193 ==
LOC: ED 11:21 → ED-I 12:55 → ED 13:08 → MS2 13:09
PROVIDERS: Family Medicine; Nurse Practitioner Family; ADMIT Internal Medicine; ATTEND Internal Medicine
DX: J18.9 Pneumonia, unspecified organism (principal); J96.20 Acute and chronic respiratory failure, unspecified whether with hypoxia or hypercapnia; J44.0 Chronic obstructive pulmonary disease with (acute) lower respiratory infection; J96.10 Chronic respiratory failure, unspecified whether with hypoxia or hypercapnia; I69.354 Hemiplegia and hemiparesis following cerebral infarction affecting left non-dominant side; I48.20 Chronic atrial fibrillation, unspecified; J44.1 Chronic obstructive pulmonary disease with (acute) exacerbation; I10 Essential (primary) hypertension; I25.10 Atherosclerotic heart disease of native coronary artery without angina pectoris; N40.1 Benign prostatic hyperplasia with lower urinary tract symptoms; R33.8 Other retention of urine; I73.9 Peripheral vascular disease, unspecified; E78.5 Hyperlipidemia, unspecified; F41.0 Panic disorder [episodic paroxysmal anxiety]; Z85.118 Personal history of other malignant neoplasm of bronchus and lung; Z85.820 Personal history of malignant melanoma of skin; Z87.891 Personal history of nicotine dependence; Z96.0 Presence of urogenital implants; Z96.89 Presence of other specified functional implants; Z95.1 Presence of aortocoronary bypass graft; Z99.81 Dependence on supplemental oxygen; Z20.828 Contact with and (suspected) exposure to other viral communicable diseases
CPT/HCPCS: J0131; J3370; Q9967

== ENCOUNTER 2020-01-10 10:17 | Inpatient (IN) | payer MEDICARE ==
[~2020-01-10] VITALS: Ht 172.7 cm; Wt 75.0 kg
[~2020-01-10 10:17] MED LIST changes: +CARDIZEM CD120 MG PO; +Levaquin PO
--- NOTE | 2020-01-10 10:30 | NUR ---
PT TO ROOM VIA EMS
[2020-01-10 11:11] LABS: URINE BILIRUBIN - DIPSTICK NEGATIVE (NEGATIVE); URINE BLOOD DIPSTICK SMALL (NEGATIVE); URINE COLOR YELLOW; URINE GLUCOSE - DIPSTICK NEGATIVE (NEGATIVE); URINE KETONE NEGATIVE (NEGATIVE); URINE NITRITE - DIPSTICK NEGATIVE (Negative); URINE PH 5.5 (4.5-8.0); URINE PROTEIN - DIPSTICK TRACE mg/dL (NEG-TRACE); URINE SPECIFIC GRAVITY 1.025
[2020-01-10 11:12] LABS: URINE LEUK ESTERASE LARGE (NEGATIVE)
[2020-01-10 11:13] LABS: URINE BACTERIA FEW hpf; URINE EPITHELIAL CELLS MODERATE EPI/hpf (0-FEW); URINE RBC 0-2 RBC/hpf (0-5)
[2020-01-10 11:21] LABS: HEMATOCRIT 36.2 % (39.0-50.0); HEMOGLOBIN 10.1 g/dl (14.0-18.0); IMMATURE GRANULOCYTES 0.4 % (0.0-5.0); MEAN CELL VOLUME 75.7 fL CALC (80.0-100.0); MEAN CORPUSCULAR HGB 21.1 pG CALC (26.0-32.0); MEAN CORPUSCULAR HGB CONC 27.9 g/dL CAL (32.0-36.0); NEUT# 9.39 thou/uL (1.82-7.42); RED BLOOD COUNT 4.78 mill/uL (4.70-6.10); RED CELL DISTRI WIDTH 19.2 % (11.5-15.5)
--- NOTE | 2020-01-10 11:30 | NUR ---
PT RESTING ON STRETCHER; NO S/S OF DISTRESS NOTED; PT DENIES ANY SOB OR NEEDS AT THIS TIME; ADVISED OF CONTINUED WAIT TIME; VSS; WILL CONTINUE TO MONITOR
[2020-01-10 11:34] LABS: ALBUMIN 3.6 g/dL (3.2-5.0); ANION GAP 11 (6-22 (CALC)); BUN 10 mg/dL (8-23); BUN/CREATININE RATIO 13 (12-20 (CALC)); CARBON DIOXIDE 28 mmol/l (22-30); CHLORIDE 104 mmol/l (95-108); CREATININE 0.8 mg/dL (0.7-1.3); GFR > 60 ML/MIN (>=60 (CALC)); GFR FOR AFR.AMER. > 60 ML/MIN (>=60 (CALC)); POTASSIUM 3.9 mmol/l (3.5-5.1); SGOT/AST 22 u/l (19-48); SODIUM 139 mmol/l (137-146)
[2020-01-10 11:36] LABS: ALKALINE PHOSPHATASE 91 u/l (38-126); BILIRUBIN, TOTAL 0.5 mg/dL (0.0-1.4)
--- NOTE | 2020-01-10 12:30 | NUR ---
PT RESTING ON STRETCHER; NO S/S OF DISTRESS NOTED; VSS; ADVISED OF CONTINUED WAIT TIME; CALL LIGHT WITHIN REACH
--- NOTE | 2020-01-10 13:40 | NUR ---
DR GARRISON AT BEDSIDE TO DISCUSS POC AND FINDINGS
--- NOTE | 2020-01-10 14:04 | NUR ---
SBAR PRINTED TO FLOOR
--- NOTE | 2020-01-10 15:10 | NUR ---
PT RESTING ON STRETCHER; NO S/S OF DISTRESS NOTED; MONITORING DEVICES IN PLACE; VSS; ADVISED OF CONTINUED WAIT TIME; CALL LIGHT WITHIN REACH; WILL CONTINUE TO MONITOR
--- NOTE | 2020-01-10 16:10 | NUR ---
SATISH, RECOVERY COORDINATOR AT BEDSIDE
--- NOTE | 2020-01-10 17:27 | NUR ---
Admission Note Report Given to: sbar printed to floor Transported by: Wheelchair x Stretcher Transported with: x Nurse Transporter x Patent IV O2 Therapy Teacher Location: ICU x [facility]2
--- NOTE | 2020-01-10 17:30 | NUR ---
PT TO ROOM VIA STRETCHER ACCOMPANIED BY STAFF; PT A/O X3; O2 2L VIA NC, CRACKLES THROUGHOUT; PT WITH HX OF CVA LEFT UPPER AND LOWER EXT. FLACCID WITH LT HAND CONTRACTION; PT INCONTINENT OF MODERATE AMOUNT OF SOFT BROWN STOOL; HUITRON CATH IN PLACE FROM HOME WITH CLEAR YELLOW URINE TO BEDSIDE BAG; IVF INFUSING TO LAMAR WITHOUT DIFFICULTY, NO REDNESS OR EDEMA NOTED; PT ORIENTED TO ROOM AND CALL SYSTEM; WILL CONTINUE TO MONITOR.
[2020-01-10 17:43] VITALS: BP 105/61
[2020-01-10 18:59] VITALS: BP 119/86
--- NOTE | 2020-01-10 20:12 | NUR ---
PT MEDICATED AND ASSESSMENT COMPLETED AT THIS TIME. LUNG SOUNDS ARE COURSE THROUGHOUT. L.SIDED FLACID DUE TO RESIDUAL STROKE. I ELEVATED LEFT ARM WITH A PILLOW FOR SUPPORT/COMFORT AND PLACED PILLOWCASE FOR PEOPLESOFT ADMINISTRATOR PROTECTION TO LEFT HAND. PT PROVIDED ICEWATER, DENIED ANY OTHER DRINK OR SNACK AT THIS TIME. WILL CONTINUE TO MONITOR. CALL LIGHT PLACED W/IN REACH OF R.HAND ALONG W/BST AND DRINK.
[2020-01-10 22:00] VITALS: BP 114/80
--- NOTE | 2020-01-11 01:30 | NUR ---
PT SLEEPING SOUNDLY, LIGHTS OUT, TV ON. NO S/O DISTRESS NOTE. PT IS MAKING SNORING SOUNDS. CALL LIGHT W/IN REACH.
[2020-01-11 04:37] VITALS: BP 136/69
--- NOTE | 2020-01-11 04:41 | NUR ---
PT MEDICATED ORDERS PROVIDE. AIDE IN WITH PT AT THIS TIME. NO S/O DISTRESS NOTED. PT DENIES ANY OTHER NEEDS. CALL LIGHT PROVIDED AND PT ENCOURAGED TO CALL NEEDS ARISE.
--- NOTE | 2020-01-11 04:50 | NUR ---
BEDBATH PROVIDED TO PT AND REPOSITIONING FOR PRESSURE AND COMFORT. PT IV ANTIBIOTICS ADMINISTERED AT THIS TIME. V/S ASSESSED.
--- NOTE | 2020-01-11 05:38 | NUR ---
MEDICATION SAVED AND ADMINISTERD, MEDICATION THEN WOULD SHOW NOT GIVEN. I SCANNED MEDICATION 4 TIMES TO GET IT TO SAVE GIVEN. THIS MEDICATION WAS ONLY ADMINISTERED ONE TIME THIS MORNING AT 0530.
[2020-01-11 05:44] LABS: HEMATOCRIT 33.8 % (39.0-50.0); HEMOGLOBIN 9.5 g/dl (14.0-18.0); IMMATURE GRANULOCYTES 0.5 % (0.0-5.0); MEAN CORPUSCULAR HGB 21.3 pG CALC (26.0-32.0); MEAN CORPUSCULAR HGB CONC 28.1 g/dL CAL (32.0-36.0); NEUT# 5.77 thou/uL (1.82-7.42); RED BLOOD COUNT 4.45 mill/uL (4.70-6.10)
[2020-01-11 06:22] LABS: ALKALINE PHOSPHATASE 78 u/l (38-126); ANION GAP 9 (6-22 (CALC)); BILIRUBIN, TOTAL 0.4 mg/dL (0.0-1.4); BUN 9 mg/dL (8-23); BUN/CREATININE RATIO 15 (12-20 (CALC)); CARBON DIOXIDE 27 mmol/l (22-30); CHLORIDE 106 mmol/l (95-108); CREATININE 0.6 mg/dL (0.7-1.3); GFR > 60 ML/MIN (>=60 (CALC)); GFR FOR AFR.AMER. > 60 ML/MIN (>=60 (CALC)); POTASSIUM 4.4 mmol/l (3.5-5.1); SGOT/AST 20 u/l (19-48); SODIUM 138 mmol/l (137-146)
[2020-01-11 07:50] VITALS: BP 151/81
--- NOTE | 2020-01-11 07:50 | NUR ---
ASSESSMENT IS COMPLETED: IV SITE IS FREE FROM REDNESS OR EDEMA. HR IS REG,PULSES ARE STRONG X4, ABD IS SOFT WITH ACTIVE BS. BREATH SOUNDS ARE CLEAR/RALES BILATERALLY, TELE MONITOR IN PLACE. HUITRON IN PLACE. CONTINUE TO OBSERVE AND MONITOR.
--- NOTE | 2020-01-11 12:30 | NUR ---
PT HAS BEEN RELAXING IN BED WITH NO DISTRESS NOTED. IV SITE IS FREE FROM REDNESS OR EDEMA.
--- NOTE | 2020-01-11 13:50 | NUR ---
FAMILY IS CALLING AND INQUIRING ABOUT MEDICATION WHEN HE IS DISCHARGED.
--- NOTE | 2020-01-11 14:08 | NUR ---
CALLED [facility] RE: "TRELOGY" STAFF HAS TO FIND OUT IF ITS OK FROM BOSS TO BRING AFTER WORK.
[2020-01-11 15:07] VITALS: BP 119/50
--- NOTE | 2020-01-11 16:15 | NUR ---
PT HAS BEEN RESTING WITH EYES CLOSED. IV SITE IS FREE FROM REDNESS OR EDEMA. CONTINUE TO OSEBRVE AND MONITOR.
--- NOTE | 2020-01-11 16:32 | NUR ---
FACILITY UNABLE TO BRING THE "TRILOGY INHALER" INFORMED PHARMACY
--- NOTE | 2020-01-11 16:45 | NUR ---
SPOKE WITH THE SISTER FROM [place]. WILL CHECK WITH THE SPOUSE TO SEE WHAT IS GOING ON.
[2020-01-11 18:53] VITALS: BP 115/64
--- NOTE | 2020-01-11 19:42 | NUR ---
PHARMACY NOTIFIED OF DELAY OF ANTIBIOTIC THERAPY AND ISSUES WITH SCANNING AM MEDICIATONS NOW SHOWING DAYSHIFT THAT MEDICATION WAS ADMINISTERED FOR ALL SCEDULED DOSES THAT DAY. I SPOKE WITH LITTLE FROM AND SHE ADVISED OF NEEDED ADJUSTED DOSES AND RESCHEDULED THESE FOR NOW, [address] PT BACK ON SCHEDULE. WILL NOTIFY PHYSICIAN.
--- NOTE | 2020-01-11 20:55 | NUR ---
PT ASSISTED TO RECLINER 2X ASSISTANCE, MEDICATIONS ADMINISTERED AND ASSESSMENT COMPLETED AT THIS TIME. PT IS HAVING DIFFICULTY GETTING COMFORTABLE, ASSISTED REPOSITIONING AND PILLOW POSITIONING.
--- NOTE | 2020-01-11 23:40 | NUR ---
PT CALLED 5 TIMES IN 5 MINUTES TALKING ABOUT "I NEED TO BE ADMITTED AND WHERE IS MY ROOM." WHEN I ARRIVE TO PT'S ROOM HE STATED HE JUST WANTED TO GET BACK INTO THE BED FROM THE RECLINER. I IMFORMED THE PT THAT I WAS WAITING ON MERCHANDISE SUPERVISOR ASSISTANCE DUE TO HIS HEAVY NEED FOR ASSISTANCE AND SAFETY, HE VERBALIZED UNDERSTANDING.
--- NOTE | 2020-01-11 23:45 | NUR ---
PT CALLED AGAIN AT THIS TIME. DEMANDING TO BE MOVED TO THE BED FROM RECLINER. CEO NA'S ARE IN W/PT AT THIS TIME. PT APPEARS CALM AND SAFE AT THIS TIME, JUST ASKING TO BE MOVED.
--- NOTE | 2020-01-12 04:25 | NUR ---
PT MEDICATED ORDERS PROVIDE W/IV ANTIBIOTIC THERAPY. NO S/O DISTRESS. PT AWAKE AND TALKING. TV ON, PT TALKING ABOUT JEHOVAH'S WITNESS MUSIC ON TV. PT STATING HE THOUGHT HE WAS A GONER LAST NIGHT. I ENCOURAGED PT THAT HE SOUNDS MUCH IMPROVED IN HIS LUNGS AND BREATHING. ASSISTED PT REPOSITION AND W/WATER.
[2020-01-12 04:40] VITALS: BP 143/70
[2020-01-12 06:10] LABS: HEMATOCRIT 31.7 % (39.0-50.0); HEMOGLOBIN 8.8 g/dl (14.0-18.0); MEAN CORPUSCULAR HGB 21.1 pG CALC (26.0-32.0); MEAN CORPUSCULAR HGB CONC 27.8 g/dL CAL (32.0-36.0); RED BLOOD COUNT 4.17 mill/uL (4.70-6.10); RED CELL DISTRI WIDTH 18.7 % (11.5-15.5)
[2020-01-12 06:28] LABS: ANION GAP 8 (6-22 (CALC)); BUN 15 mg/dL (8-23); BUN/CREATININE RATIO 22 (12-20 (CALC)); CARBON DIOXIDE 26 mmol/l (22-30); CHLORIDE 108 mmol/l (95-108); CREATININE 0.7 mg/dL (0.7-1.3); GFR > 60 ML/MIN (>=60 (CALC)); GFR FOR AFR.AMER. > 60 ML/MIN (>=60 (CALC)); POTASSIUM 4.3 mmol/l (3.5-5.1); SODIUM 138 mmol/l (137-146)
[2020-01-12 08:21] VITALS: BP 141/76
--- NOTE | 2020-01-12 08:21 | NUR ---
RECIEVED REPORT FROM SHANON BLAKE. PT RESTING I HIGH FOWLERS POSITION WATCHING TV UPON ENTERING ROOM. INTRODUCED SELF TOT PT AND DISCUSSED POC. ASSESSMENT AND VITALS COMPLETED AT THIS TIME. RESPIRATIONS ARE EVEN AND UNLABORED WITH NO SIGNS OF DISTRESS. HEART RHYTHM IS NORMAL. BOWEL SOUNDS ARE ACTIVE IN ALL QUADRNATS. LAST REPORTED BM 01/11/20. RADIAL AND PEDAL PUSLES ARE STRONG WITH NORMAL CAPILLARY REFILL.PT PRESENTS WITH LEFT SIDED WEAKNESS FROM PREVIOUS STROKE. #20G IN LAMAR RUNNING WITH NS AT 75 ORDRED, SITE APPEARS HEALTHY AND PATENT. PT COMPLAINS OF 9/10 GENERALIZED PAIN, TYLENOL TO BE ADMINSTERED, HUITRON CATHATER IN PLACE WITH TUBING UNKINKED AND FLOWING WITH GRAVITY. PT DENIES ANY OTHER PAIN OR DISOCOMFORTS AT THSI TIME. ALL SAFTEY PRECAUTIONS ARE IN PLACE WITH CALL LIGHT IN REACH.W ILL CONTINUE TO MONITOR
--- NOTE | 2020-01-12 09:09 | NUR ---
PRELIM BLOOD CX RESULTS SHOW GRAM POSITIVE COCCI IN 1/4 BOTTLES. PT IS ON AZACTAM, WBC WNL, AFEBRILE, NO HX OF MRSA. REPORTED TO DR KHAN. WILL F/U WITH FINAL
--- NOTE | 2020-01-12 09:29 | NUR ---
PT AT BEDSIDE WORKING WITH PT
--- NOTE | 2020-01-12 09:49 | NUR ---
Pt was supine upon entering. Pt reported he was not feeling well enough to get OOB for transfer training however agreed to perform bed exercises. PROM of BLE followed by SAQ 2x10, ankle pumps 2x10. ampac=8
--- NOTE | 2020-01-12 10:55 | NUR ---
REASSESSMENT OF PAIN AT THIS TIME RESULTING IN 02/09 STILL. DSTEPHANE NOTIFIED OF PT PAIN SALE. WRITTER INFORMED GAME DEVELOPER THAT NOTHING ELSE WAS AVAILABLE AT THIS TIME. PT VERBALIZED UNDERSTANDING.PT REPOSITIONED TO ASSIST WITH COMFORT. ALL SFAETY PREACUTIONS REMAIN IN PLACE WITH CALL LIGHT IN REACH. WILL CONTINUE TO MONITOR
--- NOTE | 2020-01-12 11:32 | NUR ---
SPEECH THERAPIST AT BEDSIDE WORKING WITH PT
--- NOTE | 2020-01-12 12:00 | NUR ---
PT RESTING IN HIGH FOWLERS POSITION WATCHING TV. RESPIRTAIONS ARE EVEN AND UNLABORED WITH NO SIGNS OF DISTRESS. PT DENIES ANY PAIN OR DISCOMFORTS AT THIS TIME. ALL SAFTEY PRECAUTIONS ARE IN PLACE WITH CALL LIGHT IN REACH.WILL CONTINUE TO MONITOR
--- NOTE | 2020-01-12 13:34 | NUR ---
PT COMPLAINS OF 8/10 BODY PAIN. ULTRAM ADMINISTERED. RESPIRTAIONS ARE EVEN AND UNLABORED WIHT NO SIGNS OF DISTRESS. ASPIRATION AND SAFTEY PRECAUTIONS ARE IN PLACE WITH CALL LIGHT IN REACH. WILL CONTINUE TO MONITOR
--- NOTE | 2020-01-12 16:00 | NUR ---
PT RESTING IN HIGH FOWLERS POTIION FOR ASPIRATION PRECAUTIONS, RESPIRATIONS ARE EVEN AND UNLABORED WITH NO SIGNS OF DSITRESS. ALL SAFETY PRECAUTIONS ARE IN PLACE WITH CALL LIGHT IN REACH. WILL CONTINUE TO MONITOR
[2020-01-12 16:45] VITALS: BP 112/55
[2020-01-12 19:20] VITALS: BP 120/73
--- NOTE | 2020-01-12 20:35 | NUR ---
PT RESTING IN BEDM, ALERT TO SELF. RESPIRATIONS EVEN AND UNLABORED ON O2 @ 2L VIA NC. LUNGS SOUND DIMINIHSED. PT CONFUSED ASKING WHAT TIME WE KILL THE COWS. ATTEMPTE TO REORIENT PT, WITHOUT SUCCESS. SAFETY PRECAUTIONS IN PLACE. WILL CONTINUE TO MONTIOR.
--- NOTE | 2020-01-13 00:16 | NUR ---
PT RESTING IN BED. NO S/S OF DISTRESS AT THIS TIME. SAFETY PRECAUTIONS IN PLACE. WILL CONTINUE TO MONTIOR.
--- NOTE | 2020-01-13 03:37 | NUR ---
PT REPOSITIONED PER REQUEST. PT REPORTS HAVING GENERALIZED PAIN RATING IT A 10/10 PT TO BE MEDICATED PER EMAR ORDERS. SAFETY PRECAUTIONS IN PLACE. WILL CONTNUE TO MONITOR.
[2020-01-13 05:14] VITALS: BP 120/72
[2020-01-13 06:14] LABS: HEMATOCRIT 28.3 % (39.0-50.0); MEAN CELL VOLUME 75.5 fL CALC (80.0-100.0); MEAN CORPUSCULAR HGB 21.3 pG CALC (26.0-32.0); MEAN CORPUSCULAR HGB CONC 28.3 g/dL CAL (32.0-36.0); RED BLOOD COUNT 3.75 mill/uL (4.70-6.10); RED CELL DISTRI WIDTH 19.4 % (11.5-15.5)
[2020-01-13 06:46] LABS: ANION GAP 5 (6-22 (CALC)); BUN 14 mg/dL (8-23); BUN/CREATININE RATIO 24 (12-20 (CALC)); CARBON DIOXIDE 29 mmol/l (22-30); CHLORIDE 108 mmol/l (95-108); CREATININE 0.6 mg/dL (0.7-1.3); GFR > 60 ML/MIN (>=60 (CALC)); GFR FOR AFR.AMER. > 60 ML/MIN (>=60 (CALC)); SODIUM 137 mmol/l (137-146)
[2020-01-13 08:04] VITALS: BP 136/76
--- NOTE | 2020-01-13 08:04 | NUR ---
RECIEVED REPORT FROM SHANON ACRE. PT RESITNG IN HIGH FOWLERS POSITION UPON ENTERING ROOM.INTORDUCED SELF TO PT AND DISCUSSED POC.ASSESSMENT OF VIATSL COMPLETED AT THSI TIME. RESPIRATIONS ARE EVEN AND UNLABORED WITH NO SIGNS OF DISTRESS.LUNG SOUNDS ARE COARSE, PT DENIES ANY SOB AT THIS TIME. HEART RHYTHM IS NORMAL. BOWEL SOUNDS ARE ACTIVE IN ALL QUADRANTS, LAST REPORTED BM 01/11/20. RADIAL AND PEDALM PULSE SARE STRONG WOITH NORMAL CAPILLARY REIFLL.PT PRESNETS WITH LEFT SIDED WEAKNESS DUE TO HISTORY OF STROKES. #20G OIN RUP RUNNING WITH NS @75ML ORDERED, SIET APPEARS HEALTHY AND PATENT. PT COMPLAINS OF 8/10 GENERALIZED PAIN, ULTRAM TO BE ADMINISTERED WITH MORNING MEDICATIONS.PT PRESNET WITH HUITRON IN PLACE AND UNKINKED. PT TO BE NPO AT 0930 FOR SWALLOW TEST SCHEDULED AT 1030.ALL SAFETY PRECAUTIONS IN PLACE WIHT CALL LIGHT IN REACH. WILL CONTINUE TO MONITOR.
--- NOTE | 2020-01-13 12:25 | NUR ---
PT TO BE TRANSPORTED TO [facility] BY PHYSICAL THERAPY VIA WHEELCHAIR IN STABLE CONDITION. PT NPO SINCE [phone]. ALL SAFTEY PREACUTIONS ARE IN PLACE WITH CALL LIGHT IN REACH.WILL CONTINUE TO [facility]
--- NOTE | 2020-01-13 13:50 | NUR ---
PT BACK TO MED SURG ROOM 273 IN STABLE CONDITION VIA WHEELCHAIR FROM SWALLOW TEST. PT BACK IN BED WITH HEAD AT 90 DEGREES FROM ASPIRATION PRECAUTIONS. ALL SAFETY PRECAUTIONS ARE IN PLACE WITH CALL LIGHT IN REACH. WILL CONTINUE TO MONITOR
--- NOTE | 2020-01-13 14:39 | NUR ---
Performed supine to sitting on EOB then Max assist transfer to W/C for swallow study. Max assist transfer from W/C back to bed. Pt was on 2L 02 in w/c with portable 02 tank. Pt was left supine in bed comfortably. ampac=8
[2020-01-13 15:46] VITALS: BP 137/77
--- NOTE | 2020-01-13 18:28 | NUR ---
PT COMPLAINS OF 10/10 GERNALIZED PAIN, ULTRAM TO BE ADMINSTERED. RESPIRATIONS ARE EVEN AND UNLABORED WITH NO SIGNS OF DISTRESS. ALL SAFETY PRECAUTIONS ARE IN PLACE WIHT CALL LIGHT IN REACH. WILL CONTINUE TO MONITOR
[2020-01-13 19:25] VITALS: BP 147/79
--- NOTE | 2020-01-13 19:50 | NUR ---
PT RESTING IN BED, ALERT TO SELF. RESPIRATIONS EVEN AND UNLABORED, LUNGS SOUND DIMINISHED. PEDAL PULSES WEAK. SAFETY PRECAUTIONS IN PLACE. WILL CONTINUE TO MONITOR.
--- NOTE | 2020-01-14 00:36 | NUR ---
PT REPOSITIONED PER REQUEST. SAFETY PRECAUTIONS IN PLACE. WILL CONTINUE TO MONITOR.
[2020-01-14 03:38] VITALS: BP 168/87
--- NOTE | 2020-01-14 04:02 | NUR ---
PT RESTING IN BED, ALERT. PT REPORTS HAVING MODERATE GENERALIZED PAIN, PT TO BE MEDICATED PER EMAR ORDERS. PT COMPLAINS OF FEELING SOB, RT TO BE NOTIFIED. HEAD OF THE BED ELIVATED AND PT REPOSITIONED. SAFETY PRECAUTIONS IN PLACE. WILL CONTINUE TO MONITOR.
[2020-01-14 04:32] LABS: HEMATOCRIT 27.9 % (39.0-50.0); HEMOGLOBIN 7.9 g/dl (14.0-18.0); MEAN CELL VOLUME 75.6 fL CALC (80.0-100.0); MEAN CORPUSCULAR HGB 21.4 pG CALC (26.0-32.0); MEAN CORPUSCULAR HGB CONC 28.3 g/dL CAL (32.0-36.0); RED BLOOD COUNT 3.69 mill/uL (4.70-6.10); RED CELL DISTRI WIDTH 19.3 % (11.5-15.5)
[2020-01-14 04:49] LABS: ANION GAP 6 (6-22 (CALC)); BUN 19 mg/dL (8-23); BUN/CREATININE RATIO 28 (12-20 (CALC)); CARBON DIOXIDE 29 mmol/l (22-30); CHLORIDE 108 mmol/l (95-108); CREATININE 0.7 mg/dL (0.7-1.3); GFR > 60 ML/MIN (>=60 (CALC)); GFR FOR AFR.AMER. > 60 ML/MIN (>=60 (CALC)); POTASSIUM 4.2 mmol/l (3.5-5.1); SODIUM 138 mmol/l (137-146)
[2020-01-14 08:02] VITALS: BP 153/77
--- NOTE | 2020-01-14 08:02 | NUR ---
RECIEVED REPORT FROM SHANON ARCE. PT RESTING IN HIGH FOWLERS POSITION UPON ENTERING ROOM. INTRODUCED SELF TOT PT AND DISCUSSED POC. ASSESSMENT AND VITALS COMPLETED.RESPIRATIONS ARE EVEN AND UNLABROED WITH NO SIGNS OF DISTRESS.LUNG SOUNDS ARE COARSE. HEART RHYTHM IS NORMAL. BWOEL SOUNDS ARE ACTIVE IN ALL QUADRANTS, LAST REPORTED BM 01/13/20. RADIAL AND PEDAL PULSES ARE STRONG WITH NORMAL CAPILLARY REFILL. PT PRESENTS WITH LEFT SIDED WEAKNESS DUE TO PRIOR STROKE. PT COMPLAINS OF 9/10 GERNALIZED BODY PAIN, TYLENOL TO BE ADMINISTERED. #22 IN RFA RUNNING WITH NS AT 75 ORDERED, SITE APPEARS HAELHTY AND PATENT. PT DENIES ANY ADDITIONAL NEEDS OR CONCERNS AT THSI TIME. ALL SAFETY PRECAUTIONS ARE IN PLACE WIHT CALL LIGHT IN REACH. WILL CONTINUE TO MONITOR.
--- NOTE | 2020-01-14 08:36 | NUR ---
DR KHAN AT BEDSIDE DISCUSSIG POC
--- NOTE | 2020-01-14 12:00 | NUR ---
patient was seen for RLE therex and BLE PROM. Plantar flexion 2x10 and dorsiflexion 2x10 on RLE. PROM with gentle stretching to decrease L hypertonicity. heel slides 2x10, SAQ 2x10, isometric HS contraction with 5SH 1x10, hip adduction pillow squeeze 2x10, hip abd with manual resistance 2x10. ampac=8
--- NOTE | 2020-01-14 12:27 | NUR ---
PT SITITING IN HIGH FOWLERS POSITION WATCHING TV. SPEECH THERAPY IN ROOM AT THIS TIME. RESPIRATIONS ARE EVEN AND UNLABORED WITH NO SIGNS OF DSITRESS. ALL SAFETY PRECAUTIONS ARE IN PLACE WITH CALL LIGHT IN REACH. WILL CONTINUE TO MONITOR
[2020-01-14] MEDS ORDERED: LEVAQUIN750 MG PO (12:48)
[2020-01-14] MEDS ORDERED: GUAIFENESIN ER600 MG PO (12:48)
[2020-01-14] MEDS ORDERED: ROBITUSSIN AC10 ML PO (12:48)
[2020-01-14] MEDS ORDERED: METRONIDAZOLE500 MG PO (12:48)
--- NOTE | 2020-01-14 13:31 | NUR ---
Dysphagia Therapy: Patient swallowed Puree and Honey Thickened Liquids diet consistencies without overt s/s of aspiration during lunchtime meal. CLIENT SERVICE ADMINISTRATOR provided education to nursing on safe swallow strategies and aspiration precautions.
[2020-01-14 15:00] VITALS: BP 145/77
--- NOTE | 2020-01-14 16:40 | NUR ---
PT ATTEMPTED TO GET POUT OF BED STATING HE SEEN SPIDERS. O2 STATING AT 88%. O2 INCREASED TO 2.5L NC. O2 BACK TO 92%. RE ORIENTED PT. PT COMPLAINS OF PAIN IN LEFT ARM, ULTRAM TO BE ADMINISTERED. ALL SAFTEY PRECAUTIONS ARE IN PLACE WITH CALL LIGHT IN REACH. WILL CONTINUE TO MONITOR
--- NOTE | 2020-01-14 17:02 | NUR ---
O2 TURNED BACK TO 2L NC. PT SATS AT 92% NC 2L. RESPIRATIONS ARE EVEN AND UNLABORED WITH NO SIGNS OF DISTRESS. PT RATES PAIN 7/10 AT THIS TIME. ALL SAFETY PRCAUTIONS ARE IN PLACE WITH CALL LIGHT IN REACH. WILL COTNINUE TO MONITOR
--- NOTE | 2020-01-14 17:35 | NUR ---
SPOKE WITH DR KHAN ABOUT DISCHARGING PT BACK TO [facility]. BILL INFORMED WRITTER THAT PT IS TO BE DISCHARGED BACK TO [facility].
[2020-01-14 18:20] VITALS: BP 156/80
--- NOTE | 2020-01-14 18:29 | NUR ---
[email or web address] INFORMED THAT [facility] WILL NOT BE ARRIVING TILL 2200. INFORMED PT OF TRANSPORTATION. PT VERBLAIZED UNDERSTANDING. EDUCATED PT ON DISCHARGE INSTRUCTIONS. PT VERBALIZED UNDERSTANDING. ALL SAFETY PECAUTIONS ARE IN PLACE WITH CALL LIGHT IN REACH.
--- NOTE | 2020-01-14 22:25 | NUR ---
PT PICKED UP BY [facility] MEDICAL TRANSPORT STAFF, TRANSFERRED OUT VIA STRETCHER.
[2020-01-15] MEDS ORDERED: PRILOSEC20 MG/CAP PO (10:56)
[2020-01-15] MEDS ORDERED: ARTIFI TEAR1 OU (10:56)
[2020-01-15] MEDS ORDERED: ALBUTEROL SUL0.083 % IN (10:57)
[2020-01-15] MEDS ORDERED: PERCOCET 5/325M1 TAB PO (11:03)
== END 2020-01-14 22:25 | disposition home or self-care (01) | DRG 177 ==
LOC: ED 10:17 → ED-I 13:30 → ED 14:01 → MS2 14:02 → ED-I 14:02 → MS2 15:39
PROVIDERS: Family Medicine; Nurse Practitioner; ADMIT Internal Medicine; ATTEND Internal Medicine
DX: J69.0 Pneumonitis due to inhalation of food and vomit (principal); J96.21 Acute and chronic respiratory failure with hypoxia; I48.20 Chronic atrial fibrillation, unspecified; I10 Essential (primary) hypertension; I25.10 Atherosclerotic heart disease of native coronary artery without angina pectoris; J44.9 Chronic obstructive pulmonary disease, unspecified; I69.391 Dysphagia following cerebral infarction; R13.10 Dysphagia, unspecified; N40.1 Benign prostatic hyperplasia with lower urinary tract symptoms; R33.8 Other retention of urine; I73.9 Peripheral vascular disease, unspecified; E78.5 Hyperlipidemia, unspecified; F41.9 Anxiety disorder, unspecified; G62.9 Polyneuropathy, unspecified; I69.398 Other sequelae of cerebral infarction; G89.4 Chronic pain syndrome; Y95 Nosocomial condition; Z85.118 Personal history of other malignant neoplasm of bronchus and lung; Z95.1 Presence of aortocoronary bypass graft; Z96.0 Presence of urogenital implants; Z99.81 Dependence on supplemental oxygen; Z79.01 Long term (current) use of anticoagulants; Z79.02 Long term (current) use of antithrombotics/antiplatelets; Z87.891 Personal history of nicotine dependence; Z85.820 Personal history of malignant melanoma of skin; Z20.828 Contact with and (suspected) exposure to other viral communicable diseases
CPT/HCPCS: S0073

== ENCOUNTER 2020-01-15 09:48 | Inpatient (IN) | payer MEDICARE ==
[~2020-01-15] VITALS: Ht 172.7 cm; Wt 75.0 kg
[2020-01-15] VITALS (12 sets, daily range): BP systolic 74–165; BP diastolic 51–92
[~2020-01-15 09:48] MED LIST changes: +GUAIFENESIN ER600 MG PO; +METRONIDAZOLE500 MG PO; +ROBITUSSIN AC10 ML PO
--- NOTE | 2020-01-15 09:48 | NUR ---
PATIENT TO ROOM VIA EMS AND PHYSICIAN AT BEDSIDE FOR EVAL
--- NOTE | 2020-01-15 09:50 | NUR ---
PT ARRIVES ON NRB WITH AUDIBLE RALES AND RHONCHI, O2 SAT 96%. PT SKIN PWD. PT ALERT AND ORIENTED TO SELF. HOB UP TO AID RESPIRATIONS.
[2020-01-15 10:14] LABS: HEMATOCRIT 31.3 % (39.0-50.0); HEMOGLOBIN 8.7 g/dl (14.0-18.0); IMMATURE GRANULOCYTES 0.5 % (0.0-5.0); MEAN CELL VOLUME 75.1 fL CALC (80.0-100.0); MEAN CORPUSCULAR HGB 20.9 pG CALC (26.0-32.0); MEAN CORPUSCULAR HGB CONC 27.8 g/dL CAL (32.0-36.0); NEUT# 24.25 thou/uL (1.82-7.42); RED BLOOD COUNT 4.17 mill/uL (4.70-6.10); RED CELL DISTRI WIDTH 19.7 % (11.5-15.5)
[2020-01-15 10:15] LABS: URINE BILIRUBIN - DIPSTICK NEGATIVE (NEGATIVE); URINE BLOOD DIPSTICK LARGE (NEGATIVE); URINE COLOR YELLOW; URINE GLUCOSE - DIPSTICK NEGATIVE (NEGATIVE); URINE KETONE NEGATIVE (NEGATIVE); URINE LEUK ESTERASE NEGATIVE (NEGATIVE); URINE NITRITE - DIPSTICK NEGATIVE (Negative); URINE PH 5.5 (4.5-8.0); URINE PROTEIN - DIPSTICK TRACE mg/dL (NEG-TRACE); URINE SPECIFIC GRAVITY >=1.030
--- NOTE | 2020-01-15 10:16 | NUR ---
NASOTRACHEAL SUCTION PERFORMED BY RT AT [facility] REQUEST. PT TOLERATED WELL. CLEARED TRACHEAL CONGESTION AND RESPIRATIONS MUCH QUIETER, NOT LABORED. PT CHANGED FROM NON REBREATHER TO HIGH FLOW O2 CANNULA AT 6LPM. PT MAINTAING SAT OF 92-93%.
--- NOTE | 2020-01-15 10:20 | NUR ---
PT CLEANSED OF SMALL SOFT LIGHT BROWN BM, SCROTUM REDDENED. FC TO BSD DRAINING LIGHT YELLOW URINE.
[2020-01-15 10:23] LABS: URINE RBC 50-100 RBC/hpf (0-5); URINE WBC 0-2 WBC/hpf (0-5)
[2020-01-15 10:27] LABS: ALBUMIN 3.3 g/dL (3.2-5.0); ALKALINE PHOSPHATASE 71 u/l (38-126); ANION GAP 10 (6-22 (CALC)); BUN 22 mg/dL (8-23); BUN/CREATININE RATIO 34 (12-20 (CALC)); CARBON DIOXIDE 29 mmol/l (22-30); CHLORIDE 104 mmol/l (95-108); CREATININE 0.6 mg/dL (0.7-1.3); GFR > 60 ML/MIN (>=60 (CALC)); GFR FOR AFR.AMER. > 60 ML/MIN (>=60 (CALC)); POTASSIUM 3.9 mmol/l (3.5-5.1); SGOT/AST 17 u/l (19-48); SODIUM 139 mmol/l (137-146); TOTAL PROTEIN 6.6 g/dL (6.3-8.2)
[2020-01-15 10:31] LABS: BILIRUBIN, TOTAL 0.6 mg/dL (0.0-1.4)
[2020-01-15 10:39] LABS: MYOGLOBIN 70 ng/mL (0 - 121)
--- NOTE | 2020-01-15 10:50 | NUR ---
SPOKE WITH JUANA AT [facility] AND STATES PT LAST HAD MEDS THIS AM PO . ASKED CAREGIVER IF PT WAS ON THICKENED LIQUIDS AND JUANA STATED "NOT THAT ANYONE TOLD ME".
[2020-01-15] MEDS ORDERED: PRILOSEC20 MG/CAP PO (10:56)
[2020-01-15] MEDS ORDERED: ARTIFI TEAR1 OU (10:56)
[2020-01-15 10:57] LABS: INTERNATIONAL NORMALIZED RATIO 1.2 RATIO (0.7-1.3); PROTHROMBIN TIME 11.9 SECONDS (9.0-12.5)
[2020-01-15] MEDS ORDERED: ALBUTEROL SUL0.083 % IN (10:57)
[2020-01-15] MEDS ORDERED: PERCOCET 5/325M1 TAB PO (11:03)
--- NOTE | 2020-01-15 11:25 | NUR ---
PT O2 SAT 86% ON O2@6LPM VIA NC. PT USING ACCESSORY MUSCLES TO BREATH, ATTEMPTED PURSE LIP BREATHING WITH PT , O2 SAT DID NOT IMPROVE. PT PLACED ON NRB AND O2 SAT INCREASED TO 98% , PT CALMING, STILL AUDIBLE THROAT CONGESTION NOTED. DR KHAN NOTIFIED AND NEW ORDERS RECEIVED AND INITATED ALB NEB ORDERED. SUCTION PER RT.
--- NOTE | 2020-01-15 12:00 | NUR ---
PT RESP EVEN AND UNLABORED AFTER NST SUCTIONING OF RT NARE. PT TOLERATED WELL. MAINTAINING SAT OF 99%. NOTIFIED DR KHAN OF PT IMPROVEMENT. INFORMED THAT PT NOT MANAGING SECRETIONS WELL. ORDER TO MAINTAIN NPO AND ADMIT TO ICU FOR CLOS OBSERVATION.
--- NOTE | 2020-01-15 12:01 | NUR ---
SBAR PRINTED TO FLOOR
--- NOTE | 2020-01-15 12:22 | NUR ---
PT RESTING WITH HOB ELEVATED EYES CLOSED, ROUSES EASILY TO VOICE. MAINTAINING O2 SAT 99% ON NRB AT 15LPM. AWAITING ICU BED.
--- NOTE | 2020-01-15 13:19 | NUR ---
PT RESTING WITH HOB ELEVATED WITH NRB, O2 SAT 99%. ROUSES EASILY TO VERBAL STIMULI. ORIENTED TO SELF. SKIN PWD. PT WITH INCREASE IN HR SUSTAINED 160S. PT DENIES CP OR SOB. DR KHAN NOTIFIED AND NEW ORDERS RECEIVED.
--- NOTE | 2020-01-15 14:38 | NUR ---
report received from Jabier Skinner RN
--- NOTE | 2020-01-15 15:05 | NUR ---
PT TRANSPORTED TO ICU VIA STRETCHER ON NRB ON CONTINUOUS CARDAIC MONITOR AND IV GTTS INFUSING. PT TOLERATED WELL.
--- NOTE | 2020-01-15 15:07 | NUR ---
male pt received to ICU bed 3 via strecther accompanied by Jabier Skinner RN in stable condition; pt transferred to bed x4 staff; max assist; admission assessment completed at this time; pt alert to person and place; c/c difficulty breathing; denies pain; no n/v noted; resp even and unlabored; lungs with rhonchi in bases; skin color wnl; email campaign specialist cough noted; o2 per NRB at 10L; hr reg; strong pulses; no edema noted; svt on monitor 155 on monitor; abd soft with bs present; no bm noted per internal communications writer; mendez to gravity draining well; cath strap intact; #18 patent to rac with ns bolus/ amiodarone gtt infusing at 1mg/min; #20 ems site patent to rw with cardizem gtt infusing at 10mg/hr; no redness or edema noted at site; bruising/ecchymosis noted to bue/ hands; left hemiparesis noted; left foot droop; left hand contracture noted; plan of care/ meds explained; repositioned; call light within reach; will continue to monitor
--- NOTE | 2020-01-15 15:40 | NUR ---
staff at bedside attempting to assist pt with vagal manuevers; (bearing down, blowing through a straw); unsuccessful; svt 153; mendez to gravity; will continue to monitor
--- NOTE | 2020-01-15 16:08 | NUR ---
aflutter 90s on monitor briefly; immed return hr 153
--- NOTE | 2020-01-15 17:27 | NUR ---
Dr Campbell called per automatic typewriter inspector; informed of sustained hr 150s; pt briefly converted to variable aflutter 90 on a few occasions ( approx 10 sec); aware of amiodarone and cardinem gtt infusion rates; bp 112/77; no new orders received
--- NOTE | 2020-01-15 19:15 | NUR ---
PATIENT AWAKE, ALERT AND ORIENTED X3. SPEECH SLT GARBLED. 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 RESP SLT LABORED. O2 ON AT 10 L PER NRB. O2 SAT 93% BREATH SOUNDS COARSE THROUGOUT LUNG CORDOVA. MOIST COUGH, ENCOURAGED PATIENT TO COUGH AND DEEP BREATH, FEEBLE EFFORT ON COUGH. CUSTOMS GUARD SHOWS AFIB HR VARIABLE 130'S-150'S OCC BREAKS TO 80'S-AFLUTTER. IV #20 EMS SITE IN RW WITH CARDIAZEM GTT INCREASED AT THIS TIME TO 15 MG/HR FOR SUSTAINED RVR. LAMAR SITE WITH AMIDARONE GTT INFUSING AT 1 MG/HR AND NS AT 50 ML/HR. BOTH IV SITES BENIGN. EXPLAINED PLAN OF CARE. PATIENT VERBALIZES UNDERSTANDING.
--- NOTE | 2020-01-15 19:30 | NUR ---
PATIENT REPEATEDLY ASKING TO GET UP TO CHAIR. ASSISTED TO CHAIR WITH MAX ASSIST OF 2 STAFF. CALL MCNALLY CLIPPED TO BLANKET AND WITHIN PATIENT REACH.
--- NOTE | 2020-01-15 21:00 | NUR ---
BACK TO BED WITH 2 PERSON MAX ASSIST. TOLERATED CHAIR WELL. INCONTINENT OF MODERATE SOFT BROWN STOOL. PARTIAL BATH GIVEN AND PARTIAL BED CHANGE. SKIN ON BUTTOCKS/COCCYX INTACT. DISCUSSED WITH PATIENT IMPORTANCE OF TURNING AND REPOSITIONING. POSITIONED ONTO RIGHT SIDE.
--- NOTE | 2020-01-15 21:30 | NUR ---
REPORTED BNP FROM LABS DONE IN ED THIS MORNING TO DR KHAN, NEW ORDERS RECEIVED.
--- NOTE | 2020-01-15 22:00 | NUR ---
SLT ANXIOUS AT TIMES. FREQ EMOTIONAL SUPPORT AND REASSURANCE PROVIDED TO PATIENT. VSS. CONTINUES AFIB/FLUTTER WITH VARIABLE RATE.
--- NOTE | 2020-01-15 23:00 | NUR ---
HEART RATE STILL VARIABLE BUT COMING DOWN. RESTING WITH EYES CLOSED. RESP NON-LABORED AT REST. ON NRB MASK AT 15 L.
[2020-01-16] VITALS (35 sets, daily range): BP systolic 80–149; BP diastolic 48–93
--- NOTE | 2020-01-16 | NUR ---
RESTING WITH EYES CLOSED. RESP NON-LABORED AT REST. VSS.
--- NOTE | 2020-01-16 01:00 | NUR ---
PATIENT AWAKE ON ROUNDS HR BACK UP TO 150'S. O2 SAT 96& ON NRB 15L. DIURESING WELL FROM LASIX GIVEN EARLIER.
--- NOTE | 2020-01-16 02:00 | NUR ---
TURNED AND REPOSITIONED. REMAINS AFIB/FLUTTER WITH VARIABLE HEART RATE.
--- NOTE | 2020-01-16 04:00 | NUR ---
TURNED AND REPOSITIONED. PATIENT COOPERATIVE WITH TURNS AND ATTEMPTS TO ASSIST WITH CARE. ANXIOUS WHEN AWAKE AND NEEDS CONSTANT REASSURANCE.
[2020-01-16 05:27] LABS: HEMATOCRIT 31.1 % (39.0-50.0); HEMOGLOBIN 8.8 g/dl (14.0-18.0); IMMATURE GRANULOCYTES 0.7 % (0.0-5.0); MEAN CELL VOLUME 75.5 fL CALC (80.0-100.0); MEAN CORPUSCULAR HGB 21.4 pG CALC (26.0-32.0); MEAN CORPUSCULAR HGB CONC 28.3 g/dL CAL (32.0-36.0); NEUT# 17.78 thou/uL (1.82-7.42); RED BLOOD COUNT 4.12 mill/uL (4.70-6.10); RED CELL DISTRI WIDTH 19.7 % (11.5-15.5)
[2020-01-16 05:50] LABS: ALBUMIN 2.8 g/dL (3.2-5.0); ALKALINE PHOSPHATASE 68 u/l (38-126); ANION GAP 7 (6-22 (CALC)); BILIRUBIN, TOTAL 0.6 mg/dL (0.0-1.4); BUN 19 mg/dL (8-23); BUN/CREATININE RATIO 26 (12-20 (CALC)); CARBON DIOXIDE 31 mmol/l (22-30); CHLORIDE 103 mmol/l (95-108); CREATININE 0.7 mg/dL (0.7-1.3); GFR > 60 ML/MIN (>=60 (CALC)); GFR FOR AFR.AMER. > 60 ML/MIN (>=60 (CALC)); POTASSIUM 3.5 mmol/l (3.5-5.1); SGOT/AST 20 u/l (19-48); SODIUM 138 mmol/l (137-146); TOTAL PROTEIN 5.5 g/dL (6.3-8.2)
--- NOTE | 2020-01-16 06:16 | NUR ---
SCHEDULED DOSE OF OXYCODONE 5 MG PO GIVEN NOW FOR C/O LEFT LEG PAIN 02/09. REPOSITIONED.
--- NOTE | 2020-01-16 07:15 | NUR ---
pt awake in bed; moaning/ yelling out loudly; pt states "I'm not going to shut up"; staff at bedside; assessment completed at this time; pt alert and oriented to person and place; admits to pain to left leg; no n/v noted; prev medicated with pain meds; resp slightly labored; lungs coarse; skin color wnl; o2 per NRB at 15L; moist loose cough; no sputum to assess at this time; hr irreg; strong pulses; no edema noted; afib on monitor; abd soft with bs present; no bm noted per television writer; device noted implanted to left lower abd; pt states "baclofen pump" and "it doesn't work"; mendez to gravity draining clear yellow urine; cath strap intact; #18 patent to abdirizak with amiodarone gtt infusing at 0.5mg/min; #22 to rfa with cardizem gtt infusing at 15mg/hr; no redness or edema noted at site; left paralysis noted; pt repositioned to left side; call light within reach; will continue to monitor
--- NOTE | 2020-01-16 08:01 | NUR ---
staff at bedside feeding pt
--- NOTE | 2020-01-16 08:01 | NUR ---
awake in bed; yelling out; in to assess pt; pt continuously removed NRB; o2 sat noted at 64%; afib 160s on monitor; o2 reapplied; pt encouraged to cough up sputum; hob elevated; left leg elevated as per request; pt requesting MD; pt admits to wanting to communicate with MD; call light within reach; will continue to monitor
--- NOTE | 2020-01-16 08:34 | NUR ---
Dr Campbell present at bedside to assess pt and discuss plan of care
--- NOTE | 2020-01-16 08:39 | NUR ---
deep suctioning via nostril per RT as per Dr Campbell verbal order; pt noted to have converted to NSR with pac; MD at bedside to assess personnel monitor; will continue to monitor
--- NOTE | 2020-01-16 08:57 | NUR ---
cardizem gtt titrated to 10mg/hr; will conitnue to monitor
--- NOTE | 2020-01-16 09:05 | NUR ---
pt yelling out frequently; in to assess pt; pt admits to pain; repositioned as per request; MD aware of need for additional pain meds; no orders at this time; mendez to gravity; am meds administered with pudding; pt tolerated well; will continue to monitor
--- NOTE | 2020-01-16 10:00 | NUR ---
awake in bed; no apparent distress noted; repositioned for comfort; left leg elevated; o2 per high hali nc at 15L; sr on monitor; mendez to gravity; partial bath and catheter care per sap portal consultant; call light within reach; will continue to monitor
--- NOTE | 2020-01-16 11:09 | NUR ---
pt yelling out frequently; settles down when staff is present at bedside; no distress noted; will continue to monitor
--- NOTE | 2020-01-16 12:01 | NUR ---
awake in bed; continues to yell out loudly; calm when staff is present in room; iv intact and patent; weaning cardizem/ amiodarone at 0.5mg/min; mendez to gravity; o2 per nc hi hali at 15L; repositioned for comfort; call light within reach; will continue to monitor
--- NOTE | 2020-01-16 13:30 | NUR ---
spouse called this scientific writer; update provided
--- NOTE | 2020-01-16 14:10 | NUR ---
awake in bed; mendez to gravity; iv intact and patent; o2 per nc; call light within reach; will continue to monitor
--- NOTE | 2020-01-16 14:48 | NUR ---
amiodarone therapy completed
--- NOTE | 2020-01-16 15:41 | NUR ---
sister Jackie called this parts data writer; passcode verified; update provided
--- NOTE | 2020-01-16 16:05 | NUR ---
awake in bed yelling out loudly; no distress noted; respositioned for comfort; iv's intact; sr/pvc on monitor; mendez to gravity; call light within reach
--- NOTE | 2020-01-16 17:45 | NUR ---
awake yelling out; repositioned; set up for dinner; p admits to being able to feed self; sr on monitor; o2 per nc; mendez to gravity; will continue to monitor
--- NOTE | 2020-01-16 18:24 | NUR ---
resting in bed with eyes closed; no apparent distress noted; resp even and unlabored; iv's intact; sr on monitor; call light within reach
--- NOTE | 2020-01-16 18:28 | NUR ---
hi hali o2 titrated to 13L nc
--- NOTE | 2020-01-16 19:30 | NUR ---
RESTING IN BED IN HIGH FOWLERS POSITION. ORIENTED TO PERSON AND BIRTHDATE. RESP SLT LABORED. ON HI FLOW NC AT 13 L FOR DINNER, O2 SAT 88-89% PLACED BACK ON NRB AT 15 L, O2 SAT 91%. ENCOURAGED COUGHING AND DEEP BREATHING. BREATH SOUNDS COARSE THROUGHOUT LUNG CORDOVA. DRY KILN OPERATOR SHOWS SR WITH OCC PVC'S. SALINE LOCK INTACT IN RFA AND IV SITE IN LAMAR WITH NS AT 5 ML/HR, BOTH SITES BENIGN. VIKAS HOSE ON, NO PERIPHERAL EDEMA, PULSES WEAKLY PALPATED. EXPLAINED PLAN OF CARE FOR THE NIGHT. MEDCIATED WITH OXYCODONE FOR C/O LEFT LEG PAIN. TAKES PILLS WITH HONEY THICK LIQUIDS WITH NO DYSPHAGIA. LEFT RESTING IN HIGH FOWLERS POSITON. REPOSITIONED LEGS. CALL MCNALLY IN REACH.
--- NOTE | 2020-01-16 21:11 | NUR ---
PATIENT TOOK PO HS MEDS WITHOUT DIFFICULTY.
--- NOTE | 2020-01-16 22:00 | NUR ---
PARTIAL LINEN CHANGE, TURNED AND REPOSITIONED ONTO RIGHT SIDE. BUTTOCKS SLT REDDENED, SKIN BARRIER OINTMENT APPLIED.
--- NOTE | 2020-01-16 23:45 | NUR ---
12 LEAD EKG DONE PER RT. NASO-TRACHEALLY SUX PER RT FOR MOD AMOUNT THICK SECRETIONS.
[2020-01-17] VITALS (21 sets, daily range): BP systolic 81–148; BP diastolic 51–78
--- NOTE | 2020-01-17 00:02 | NUR ---
CALL TP DR SAUCEDA TO INFORM PATIENT IS BACK IN AFIB RVR. NEW ORDERS RECEIVED.
--- NOTE | 2020-01-17 00:36 | NUR ---
BOLUSED WITH 18 MG CARDIZEM IVP OVER 2 MINUTES. CARDIZEM GTT STARTED AT 10 MG/HR. CONTINUES AFIB VARIABLE HR 120'S-150'S.
--- NOTE | 2020-01-17 01:10 | NUR ---
CARDIZEM GTT INCREASED TO 15 MG/HR FOR CONTINUED RVR. WILL CONTINUE TO MOITOR CLOSELY.
--- NOTE | 2020-01-17 02:00 | NUR ---
CONTINUES IN AFIB/FLUTTER WITH VARIABLE VENTRICULAR RESPONSE, HR 110'S-120.
--- NOTE | 2020-01-17 04:00 | NUR ---
NO CHANGES TO REPORT, IN NO APPARENT DISTRESS. RESP NON-LABORED AT REST. O2 SAT 96% ON NRB AT 15 L.
[2020-01-17 04:48] LABS: HEMOGLOBIN 7.7 g/dl (14.0-18.0); IMMATURE GRANULOCYTES 0.7 % (0.0-5.0); MEAN CELL VOLUME 74.4 fL CALC (80.0-100.0); MEAN CORPUSCULAR HGB 21.2 pG CALC (26.0-32.0); MEAN CORPUSCULAR HGB CONC 28.5 g/dL CAL (32.0-36.0); NEUT# 13.61 thou/uL (1.82-7.42); RED BLOOD COUNT 3.63 mill/uL (4.70-6.10); RED CELL DISTRI WIDTH 19.4 % (11.5-15.5)
--- NOTE | 2020-01-17 05:00 | NUR ---
TURNED AND REPOSITIONED AGAIN, STRAIGHTENED LINENS. PATIENT ABLE TO COUGH UP MODERATE AMOUNT OF THICK HUMPHREY SPUTUM.
[2020-01-17 05:05] LABS: ANION GAP 3 (6-22 (CALC)); BUN 18 mg/dL (8-23); BUN/CREATININE RATIO 28 (12-20 (CALC)); CHLORIDE 100 mmol/l (95-108); CREATININE 0.7 mg/dL (0.7-1.3); GFR > 60 ML/MIN (>=60 (CALC)); GFR FOR AFR.AMER. > 60 ML/MIN (>=60 (CALC)); POTASSIUM 3.1 mmol/l (3.5-5.1); SODIUM 138 mmol/l (137-146)
[2020-01-17 05:15] LABS: CARBON DIOXIDE 38 mmol/l (22-30)
--- NOTE | 2020-01-17 06:00 | NUR ---
CONTINUES TO REST ON RIGHT SIDE. VSS. CARDIZEM GTT CONTINUES AT 15 LG/HR TO RFA IV SITE AND NS AT KVO TO LAMAR SITE. REMAINS IN AFIB/FLUTTER ON MONITOR WITH VARIABLE HEART RATE. HUITRON DRAINS SLT CLOUDY BRITTANY URINE. O2 SATS HAVE BEEN MAINTAINED IN UPPER 90'S TO 100% DURING THE NIGHT.
--- NOTE | 2020-01-17 06:45 | NUR ---
RECIEVED REPORT FROM SHANON PIKE. ASSUMED PT CARE.
--- NOTE | 2020-01-17 07:18 | NUR ---
RECEIVED CALL FROM [employer], PT HAS 1 SET OF BLOOD CX GROWING GRAM POSITIVE COCCI. PT IS CURRENTLY RECEIVING VANCO Q12H
--- NOTE | 2020-01-17 07:30 | NUR ---
PT ALERT TO PERSON & PLACE, PT REMAINS IN AFIB ON TELEMETRY, HR 110. PT DENIES CP AT THIS TIME. PT REMAINS SOB, LS COARSE THROUGHOUT, SA02@89 ON 15LPM HIFLOW. PT AFEBRILE, REPOSITIONED FOR FEEDING, HONEY THICK LIQ. CALL LIGHT IN REACH. WILL MONITOR.
--- NOTE | 2020-01-17 08:00 | NUR ---
DR. KHAN AT BEDSIDE FOR ASSESSMENT AND TO DISCUSS PLAN OF CARE. NEW ORDERS RECIEVED.
--- NOTE | 2020-01-17 09:30 | NUR ---
RT AT BEDSIDE FOR SUCTIONING. PT TOLERATED WELL.
--- NOTE | 2020-01-17 10:22 | NUR ---
SPOKE WITH DR VARGAS REGARDING DIG AND FLECAINIDE ORDERS. CALLED IN FLECAINIDE TO [facility] AND REQUESTED IT BE DELIVERED SO PT CAN USE PT OWN MED WHILE ADMITTED.
--- NOTE | 2020-01-17 10:54 | NUR ---
[facility] FILLED RX FOR FLECAINIDE, $12.54 COPAY. SPOKE WITH PTS , ARRANGED FOR TO PAY FOR COPAY OVER THE PHONE AND [facility] WILL DELIVER
--- NOTE | 2020-01-17 11:13 | NUR ---
PHARMACY CONSULT ON COMPATABILITY WITH [facility]. CARDIZEM AND POTASSIUM Y SITE COMPATIBLE PER PHARMACY.
--- NOTE | 2020-01-17 11:51 | NUR ---
PT RESTING IN BED, REPOSITIONED . 15LPM VIA NRB. SA02@99%. PT REMAINS IN AFIB/AFLUTTER ON TELEMETRY. CALL LIGHT IN REACH, WILL MONITOR.
--- NOTE | 2020-01-17 12:50 | NUR ---
CPT DONE TO ANTERIOR LUNG CORDOVA. LOOSE COUGH. SX FOR LARGE AMOUNT THICK HUMPHREY SECRETIONS. PATIENT WEARING NON-REBREATHER MASK WITH SPO2 95%. TOLERATED WELL.
--- NOTE | 2020-01-17 12:56 | NUR ---
RT AT BEDSIDE FOR NEB TX. NEB TX PLACED ON HOLD PENDING SWAB STATUS FOR COVID 19. DR. KHAN NOTIFIED. PER DR. MALCOLM, "PT DOESN'T HAVE COVID. HE WAS JUST DISCHARGED, IT IS RIGHT LOWER LUNG PNEUMONIA.ASPIRATION. HE NEEDS HIS NEBS." NOTIFIED RT OF UPDATE STATUS. NEB TX RESUMED. CPT AT BEDSIDE. WILL MONITOR.
--- NOTE | 2020-01-17 13:37 | NUR ---
S: ELKE CORBIN is a 64 M who presents with pneumonia and bacteremia. He has a history of stroke, lung disease, transient ischemic attack, CABG heart disease, kidney disease, mental disorder, prostate problems, and radiation cancer. All medications in patient's chart were reviewed. O: Trough is 11 mcg/ml on 01/16/2020 VS: BP 96/51 mmHg, P 104 bpm, RR 22 breaths/min, T 98.1 F. W 75 kg, HT 172.72 cm, Scr=1 mg/dL, CrCl= 77.1 ml/min A: Blood culture pending, preliminary results show gram positive cocci. P: Patient is on Levofloxacin 750 mg iv q24h. Vancomycin ordered for pharmacy to dose. Change Vancomycin to 1250mg IV Q12H. Vancomycin trough is drawn before the 4th dose on 01/18/2020 2230. Vancomycin goal trough is between 15-20 mcg/ml. Pharmacy will follow and or advise on antibiotics use as needed.
--- NOTE | 2020-01-17 14:15 | NUR ---
pt called with the code, update given.
--- NOTE | 2020-01-17 14:46 | NUR ---
SPOKE WITH [facility] IN RADIOLOGY, ECHO WILL BE DONE TOMORROW. DR. KHAN UPDATED.
--- NOTE | 2020-01-17 15:09 | NUR ---
PT SISTER RUTHIE CALLED WITH CODE, UPDATE GIVEN.
--- NOTE | 2020-01-17 16:00 | NUR ---
PT RESTING IN BED, RWEPOSITIONED. RESPIRATIONS EVEN/ UNLABORED 15LPM/NRB. LS REMAIN COARSE. CALL LIGHT IN REACH. WILL MONITOR.
--- NOTE | 2020-01-17 17:45 | NUR ---
ATTEMPTED CPT. PATIENT ASKED TO STOP STATING THAT IT HURT TOO MUCH. LOOSE COUGH. O2 ON @ 15L HIGH FLOW CANULA WITH SPO2 96%.
--- NOTE | 2020-01-17 18:06 | NUR ---
PT SITTING UP IN BED, STAFFING FEEDING. PT TOLERATING WELL. WILL MONITOR..
--- NOTE | 2020-01-17 19:00 | NUR ---
AT BEDSIDE. SPOKE WITH PATIENT ABOUT PLAN OF CARE. (REPORTEDLY MD SPOKE WITH PT AND EARLIER TODAY). SHE CAME TO THE DESK AND SAID THAT HE IS TIRED OF FIGHTING AND READY TO GO HOME [facility]. HE DOES NOT WISH TO BE KEPT ALIVE BY [employer]. IN SPEAKING WITH THEM. THEIR DESIRE IS COMFPORT MEASURES ONLY. THEREFORE, D/C MEDS, DNR STATUS AND HOSPICE REFERRAL RX BY DR KHAN AFTER HE SPOKE WITH THE . HAS RETURNED TO BEDSIDE WITH PATIENT
--- NOTE | 2020-01-17 20:00 | NUR ---
D/C IV MEDICATION. HUITRON REMAINS IN PLACE (BY REQUEST) TO KEEP PATIENT DRY WHERE HE WILL NOT NEED TO BE TURNED AND CLEANED AND LINEN CHANGED FREQUENTLY. OXYGEN REMAIN IN USE AT 15L/MIN PER N/C . AT BEDSIDE
--- NOTE | 2020-01-17 21:01 | NUR ---
MORPHINE GIVEN PER REQUEST- PAIN OF BACK AND BUTT
--- NOTE | 2020-01-17 22:30 | NUR ---
SECOND DOSE OF MS GIVEN PER REQUEST AND REPOSITIONED 4TH TIME IN AN HOUR. REMAINS ST BEDSIDE
[2020-01-18] VITALS: BP 138/70
--- NOTE | 2020-01-18 | NUR ---
REQUESTING PAIN MEDICATION WHICH SEEMS TO GIVE IMMEDIATE RELIEF BUT REQUESTS MORE MEDICATION IN LESS THAN 2 HOURS
[2020-01-18 02:00] VITALS: BP 138/63
--- NOTE | 2020-01-18 02:03 | NUR ---
MS GIVEN AND PT REPOSITIONED PER REQUEST. NO DISTRESS NOTED
--- NOTE | 2020-01-18 02:52 | NUR ---
HUITRON REMAINS IN PLACE TO PROVIDE COMFORT IN KEEPING PATIENT DRY AND COMFORTABLE. MOANS WHEN TURNED
--- NOTE | 2020-01-18 02:57 | NUR ---
REMAINS AT BEDSIDE AND IS VERY ACTIVE. TO BATHROOM, MOVING PATIENT, TALKATIVE. SHE VOICED CONCERN THAT SHE THOUGHT THE MORPHINE WOULD KNOCK HIM OUT BUT PT REMAINS ALERT AND MAKING NOISE. PT REMAINS ORIENTED AND RESPONDS APPROPRIATELY WITH CLEAR SPEECH. WATCHED TV FOR A SHORT WHILE BUT THE TV IS OFF NOW.
[2020-01-18 04:00] VITALS: BP 130/77
--- NOTE | 2020-01-18 04:23 | NUR ---
BEDRESTING. [facility] CALLED. THEY RECEIVED REFERRAL AND WILL SEND A NURSE IN AM FOR EVAL. RESTING AT BEDSIDE
--- NOTE | 2020-01-18 06:45 | NUR ---
RECIEVED REPORT FROM SHANON ANDERSON. ASSUMED PT CARE.
--- NOTE | 2020-01-18 06:47 | NUR ---
PT note 01/18/20 Patient admitted following aspiration of thin liquids. He would benefit from ST consult and PT consult when stable
--- NOTE | 2020-01-18 07:35 | NUR ---
PT MOANING OUT IN PAIN, MEDICATED ORDERED PER PT REQUEST. PT REPOSITIONED FOR COMFORT. WILL MONITOR.
[2020-01-18 08:00] VITALS: BP 121/77
--- NOTE | 2020-01-18 08:00 | NUR ---
DR. KHAN AT [facility] FOR ASSESSMENT AND TO DISCUSS PLAN OF CARE, NEW ORDERS RECIEVED.
--- NOTE | 2020-01-18 08:05 | NUR ---
ALETHEA FROM [facility] CALLED, REPORT GIVEN, ETA FOR CONSULT/ADMISSION NURSE ETA 11:30AM. PT, PT (DEAN) AND DR. KHAN UPDATED.
--- NOTE | 2020-01-18 08:30 | NUR ---
PT ARRIVED AT BEDSIDE FOR VISIT, DR. KHAN UPDATED HER.
--- NOTE | 2020-01-18 10:46 | NUR ---
REMAINS AT BEDSIDE, AWAITING HOSPICE ARRIVAL. PT RESTING COMFORTABLE IN BED. NO DISTRESS NOTED AT THIS TIME. CALL LIGHT IN REACH. WILL MONITOR.
--- NOTE | 2020-01-18 11:44 | NUR ---
CORBY FROM [facility] AT BEDSIDE FOR ADMISSION AND ASSESSMENT. REMAINS AT BEDSIDE. WILL MONITOR.
--- NOTE | 2020-01-18 12:45 | NUR ---
PT REPOSITIONED FOR COMFORT. HOSPICE NURSE CORBY REMAINS AT BEDSIDE.
--- NOTE | 2020-01-18 14:52 | NUR ---
PT SISTER CALLED WITH CODE, UPDATE GIVEN. CORBY FROM [facility] SPOKE WITH SISTER WELL TO UPDATEAND EASE ANXIETY. OFFERED SISTER A VIRTUAL TOUR ONLINE. PT SISTER GIVEN THE NUMBER TO CONTACT AND RECIEVE UPDATES.
--- NOTE | 2020-01-18 16:17 | NUR ---
Discharge instructions given. Patient verbalizes understanding of same. Discharged in stable condition via Medical Transport to [facility] with staff. All belongings sent with pt.
--- NOTE | 2020-01-18 18:33 | NUR ---
CALLED [facility] AT SPOKE TO ANDI GAVE INFORMATION ON THIS PT. STATED HE WILL PAGE OUT THE ORDER AND THE CONFIRMATION NUMBER IS [id number].
== END 2020-01-18 16:17 | disposition hospice, inpatient (51) | DRG 871 ==
LOC: ED 09:48 → ED-I 10:47 → ED 10:58 → ICU 10:59 → ED-I 10:59 → MS2 11:19 → ICU 12:19
PROVIDERS: Emergency Medicine; ADMIT Internal Medicine; ATTEND Internal Medicine
DX: A41.9 Sepsis, unspecified organism (principal); J69.0 Pneumonitis due to inhalation of food and vomit; J96.21 Acute and chronic respiratory failure with hypoxia; I69.354 Hemiplegia and hemiparesis following cerebral infarction affecting left non-dominant side; I69.391 Dysphagia following cerebral infarction; R13.10 Dysphagia, unspecified; I10 Essential (primary) hypertension; I25.10 Atherosclerotic heart disease of native coronary artery without angina pectoris; E78.5 Hyperlipidemia, unspecified; J44.9 Chronic obstructive pulmonary disease, unspecified; E87.6 Hypokalemia; N40.1 Benign prostatic hyperplasia with lower urinary tract symptoms; R33.8 Other retention of urine; F41.9 Anxiety disorder, unspecified; I48.91 Unspecified atrial fibrillation; Z51.5 Encounter for palliative care; Z66 Do not resuscitate; Z99.81 Dependence on supplemental oxygen; Z95.1 Presence of aortocoronary bypass graft; Z85.820 Personal history of malignant melanoma of skin; Z85.118 Personal history of other malignant neoplasm of bronchus and lung; Z87.891 Personal history of nicotine dependence
CPT/HCPCS: J0131; J0282; J1160; J3370; J3475